=== PATIENT | male | born 1935 | race Caucasian/White ===

== ENCOUNTER → 2016-11-23 | Outpatient (CLI) | payer BC ==
[~2016-11-23] MED LIST: ASPI81TA85 PO; CALC600T57 PO; CLIN1CAP5 PO; FISH1000 PO; GABA300C3 PO; GLUC1CAP9; IBUP200C PO; MULTTAB4 PO; TAMS0.4C2 PO
--- NOTE | 2016-11-23 17:05 | REP ---
Chest x-ray: Two views. History: Fever and back pain. Comparison chest x-ray June 06, 2015. Findings: There is some chronic pleuroparenchymal opacity at the left heart border unchanged from the June 05, 2015 study. This is also seen on June 05, 2013 prior studies. The aorta is slightly tortuous and calcific. Heart size is normal. The lung harrell are otherwise clear. Pleural angles are sharp. The patient is status post lumbar spine fusion surgery. Pulmonary vasculature is not increased. Impression: No active disease. Chronic pleuroparenchymal opacity left base. Signed by Navarro Garcia MD 11/23/2016 05:34 P
== END | disposition home or self-care (01) ==
LOC: M RAD 14:03
PROVIDERS: ATTEND Physician Assistant
DX: R50.9 Fever, unspecified (principal); M54.9 Dorsalgia, unspecified; R91.8 Other nonspecific abnormal finding of lung field

== ENCOUNTER → 2017-01-15 | Outpatient (REF) | payer BC | LOC: M LAB REF 12:25 | PROVIDERS: ATTEND Internal Medicine | DX: R31.9 Hematuria, unspecified (principal) ==

== ENCOUNTER → 2017-05-27 | Outpatient (CLI) | payer BC ==
[~2017-05-27] VITALS: Ht 172.7 cm; Wt 79.4 kg
[~2017-05-27] MED LIST changes: +CLIN150C14 PO; -CLIN1CAP5 PO; +FLOM5CAP PO; +GABA-282 PO; -GABA300C3 PO; -IBUP200C PO; +IBUP200C10 PO; +LIDOCAINE 2% INJ 100 MG/5 ML SDV (FOR ANES.) As Ordered ONE; +NS 1,000 ML IV SCH; +OMEP40CA2 PO; +PROPOFOL 500 MG/50 ML VIAL As Ordered ONE; +ZYRT10CA PO
--- NOTE | 2017-05-27 14:01 | ROOR ---
Patient Name: Elieser Spangler Procedure Date: 05/27/2017 1:39 PM Date of : 1935 Age: 82 Room: [facility] Gender: Male Note Status: Finalized Procedure: Upper GI endoscopy + Balloon Dilatation + Biopsies Indications: Dysphagia, Follow-up of Jimenez's esophagus Providers: Sandip Hutchins MD Referring MD: MARY COY JR, MD Requesting Provider: Medicines: Monitored Anesthesia Care Complications: No immediate complications. Procedure: Pre-Anesthesia Assessment: - The heart rate, respiratory rate, oxygen saturations, blood pressure, adequacy of pulmonary ventilation, and response to care were monitored throughout the procedure. The Endoscope was introduced through the mouth, and advanced to the second part of duodenum. The upper GI endoscopy was accomplished without difficulty. The patient tolerated the procedure well. Findings: The Z-line was regular and was found 40 cm from the incisors. Multiple biopsies were obtained with cold forceps for evaluation to rule out Jimenez's Esophagus randomly at the gastroesophageal junction. A TTS dilator was passed through the scope. Dilation with an 18-19-20 mm balloon dilator was performed to 20 mm. The dilation site was examined and showed. A small hiatal hernia was present. No other significant abnormalities were identified in a careful examination of the stomach. The exam of the duodenum was otherwise normal. Impression: - Z-line regular, 40 cm from the incisors. Dilated. - Small hiatal hernia. - Multiple biopsies were obtained at the gastroesophageal junction. - The examination was otherwise normal. Recommendation: - Patient has a contact number available for emergencies. The signs and symptoms of potential delayed complications were discussed with the patient. Return to normal activities tomorrow. Written discharge instructions were provided to the patient. - High fiber diet. - Discharge patient to home. - Continue present medications. - Await pathology results. - Telephone GI clinic for pathology results in 1 week. - Return to referring physician. - The findings and recommendations were discussed with the patient's family. Sandip Hutchins MD Sandip Hutchins MD 05/27/2017 2:01:27 PM This report has been signed electronically. Number of Addenda: 0 Note Initiated On: 05/27/2017 1:39 PM Estimated Blood Loss: Estimated blood loss: none.
[2017-05-27 14:28] VITALS: BP 129/76
== END ==
LOC: M OPP 12:25
PROVIDERS: ATTEND Internal Medicine Gastroenterology
DX: R13.10 Dysphagia, unspecified (principal); K22.70 Barrett's esophagus without dysplasia; K44.9 Diaphragmatic hernia without obstruction or gangrene; Z79.82 Long term (current) use of aspirin; Z79.899 Other long term (current) drug therapy; Z88.8 Allergy status to other drugs, medicaments and biological substances; J30.9 Allergic rhinitis, unspecified; Z87.891 Personal history of nicotine dependence; Z87.19 Personal history of other diseases of the digestive system; M81.0 Age-related osteoporosis without current pathological fracture; Z85.828 Personal history of other malignant neoplasm of skin; Z86.69 Personal history of other diseases of the nervous system and sense organs; Z85.46 Personal history of malignant neoplasm of prostate

== ENCOUNTER → 2017-09-26 | Outpatient (CLI) | payer MEDICARE ==
[~2017-09-26] MED LIST changes: -LIDOCAINE 2% INJ 100 MG/5 ML SDV (FOR ANES.) As Ordered ONE; -NS 1,000 ML IV SCH; -PROPOFOL 500 MG/50 ML VIAL As Ordered ONE; +TAMSULOSIN
--- NOTE | 2017-10-13 00:17 | ECWPNPC ---
PATIENT NAME: MERA DACOSTA : 1935 GENDER: MALE VISIT DATE: 09/26/2017 DISCHARGE DATE: 09/26/17 1129 VISIT LOCKED DATE TIME: PHYSICIAN: MATTHEW KINCAID RESOURCE: MATTHEW KINCAID REASON FOR APPOINTMENT 1. BACK PAIN HISTORY OF PRESENT ILLNESS FALL RISK SCREENING: SCREENING :NO FALLS IN THE PAST YEAR 82 YEAR OLD FEMALE PATIENT WITH HISTORY OF CHRONIC LOW BACK PAIN. PATIENT DESCRIBES THE PAIN ACHING WITH A PAIN SCORE OF 5/10. PATIENT STATES THAT HE HAS HAD LOWER BACK PAIN FOR 12-16 YEARS AND STATES THAT HIS PAIN STARTED AFTER A BACK SURGERY. PATIENT STATES THAT SITTING DECREASES THE PAIN IN THE LOWER BACK. PATIENT REPORTS USING IBUPROFEN TO AID IN PAIN RELIEF. PATIENT REPORTS TRYING PHYSICAL THERAPY AND REPORTS NO RELIEF FROM IT. PATIENT DENIES UNEXPLAINABLE WEIGHT LOSS, FEVER, CHILLS, NEW CHANGES ON HIS URINARY OR BOWEL CONTROL. PAIN SCREENING: PATIENT HAS A COMPLAINT OF ACUTE OR CHRONIC PAIN :YES CURRENT MEDICATIONS TAKING TAMSULOSIN HCL 0.4 MG CAPSULE EXTENDED RELEASE 24 HOUR 2 CAPSULES 30 MINUTES AFTER THE SAME MEAL EACH DAY ORALLY ONCE A DAY TAKING ASPIR-81 81 MG TABLET DELAYED RELEASE 1 TABLET ORALLY ONCE A DAY TAKING MULTIVITAMINS CAPSULE DIRECTED ORALLY TAKING OMEPRAZOLE 40 MG CAPSULE DELAYED RELEASE 1 CAPSULE ORALLY ONCE A DAY TAKING CETIRIZINE HCL 10 MG TABLET 1 TABLET ORALLY ONCE A DAY TAKING VITAMIN D3 COMPLETE - TABLET ORALLY TAKING IBUPROFEN 200 MG TABLET 1 TABLET WITH FOOD OR MILK NEEDED ORALLY EVERY 6 HRS TAKING ONE DAILY COMPLETE FOR MEN - TABLET 1 TAB ORALLY DAILY TAKING CITRACAL CALCIUM+D 1 TAB ORALLY DAILY TAKING FISH OIL 1200 MG CAPSULE 1 CAPSULE ORALLY ONCE A DAY DISCONTINUED CALCIUM + D 600-200 MG-UNIT TABLET 1 TABLET ORALLY ONCE A DAY DISCONTINUED [id number] 50-325-40 MG CAPSULE 1 CAPSULE NEEDED FOR TENSION HEADACHE ORALLY EVERY 4 HRS DISCONTINUED MELOXICAM 15 MG TABLET 1 TABLET ORALLY ONCE A DAY DISCONTINUED LEVOCETIRIZINE DIHYDROCHLORIDE 5 MG TABLET 0.5 TABLET IN THE EVENING ORALLY ONCE A DAY DISCONTINUED TOVIAZ 8 MG TABLET EXTENDED RELEASE 24 HOUR 1 TABLET ORALLY ONCE A DAY DISCONTINUED RANITIDINE HCL 150 MG CAPSULE 1 CAPSULE ORALLY TWICE A DAY DISCONTINUED GLUCOSAMINE CHONDR 500 COMPLEX CAPSULE DIRECTED ORALLY MEDICATION LIST REVIEWED AND RECONCILED WITH THE PATIENT PAST MEDICAL HISTORY BPH ESOPHAGEAL REFLUX LOW BACK PAIN ALLERGIES CEPHALEXIN: "RED LIKE A BEET ALL OVER": ALLERGY SURGICAL HISTORY LEFT CAROTID ENDARTERECTOMY 2002 LUMBAR FUSION L3-4 09/2016 RIGHT PARTIAL KNEE 2004 LEFT PARTIAL KNEE 2004 PROSTATE SURGERY--SEEDS IMPLANTED 2003 CATARAC SURGERY--BILAT 05/2014,06/2014 INGUINAL HERNIA REPAIR 1992 CIRCUMCISION 1956 FAMILY HISTORY FATHER: 75 YRS, DIAGNOSED WITH CANCER MOTHER: 69 YRS 2 SON(S) - HEALTHY. FATHER-COLON CA. SOCIAL HISTORY GENERAL: TOBACCO USE ARE YOU A:FORMER SMOKER HOW LONG HAS IT BEEN SINCE YOU LAST SMOKED? QUIT 1967 ALCOHOL SCREENING POINTS2 INTERPRETATIONNEGATIVE RECREATIONAL DRUG USE DRUG USE?NO CAFFEINE CAFFEINE USE?NO 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 EXERCISE: NO REGULAR EXERCISE. MARITAL STATUS: . OTHERS AT HOME: SPOUSE, CHILD. TAOIST [id number] ROMAN CATHOLIC LANGUAGE LANGUAGES SPOKEN:DIVEHI LEARNING BARRIERS / SPECIAL NEEDS HEARING IMPAIRED?YES :HEARING AIDES BILATERAL VISION IMPAIRED?YES :CORRECTIVE LENSES COGNITIVELY IMPAIRED?NO READINESS TO LEARN?YES LEARNING PREFERENCES?YES :BOOKLETS, HANDOUTS LEARNING CAPABILITIES PRESENT?YES EMOTIONAL BARRIERS?NO SPECIAL DEVICES?NO CREDIT COLLECTIONS REP NEEDED?NO PAIN CLINIC PFS, CLERGY, PUBLIC HEALTH REFERRALS PFS REFERRAL NEEDED?NO CLERGY REFERRAL NEEDED?NO PUBLIC HEALTH REFERRAL NEEDED?NO WAS THE PROVIDER NOTIFIED OF ANY PERTINENT INFO?NO HAS THE PATIENT BEEN EDUCATED REGARDING HIS/HER PLAN OF CARE?YES HAS THE PATIENT BEEN EDUCATED REGARDING PAIN, THE RISK FOR PAIN, THE IMPORTANCE OF EFFECTIVE PAIN MANAGEMENT, AND THE PAIN ASSESSMENT PROCESS?YES ADVANCE DIRECTIVES HEALTH CARE PROXY?YES NAME OF HCP --[facility]UCHO CONTACT # FOR HCP [phone] DO YOU HAVE A COPY WITH YOU?NO ON FILE WITH THE HOSPITAL DO YOU HAVE A DNR?NO WOULD YOU LIKE MORE INFORMATION?NO LIVING WILL?NO WOULD YOU LIKE MORE INFORMATION?NO POWER OF RESTORATIVE COORDINATOR?YES NAME OF POA? CHUCHO DACOSTA PHONE # OF POA? [phone] DO YOU HAVE A COPY WITH YOU?NO HAVE YOU HAD A COPY OF ANY ADVANCED DIRECTIVE (LISTED ABOVE) ON A PREVIOUS MEDICAL RECORDS AT [facility] [place]?YES DOMESTIC VIOLENCE DO YOU FEEL SAFE IN YOUR ENVIRONMENT?YES HOSPITALIZATION/MAJOR DIAGNOSTIC PROCEDURE FOR SURGERIES REVIEW OF SYSTEMS REVIEWED BY: PROVIDER: MATTHEW KINCAID MD . CONSTITUTIONAL: ANY CHANGE IN YOUR MEDICAL CONDITION? NO . CHILLS NO . FEVER NO . INFECTION: DO YOU HAVE NEW INFECTIONS? NO . DO YOU HAVE HISTORY OF MRSA? NO . MUSCULOSKELETAL: ANY NEW PATTERNS OF PAIN OR NUMBNESS? NO . SYTEMIC LUPUS NO . GASTROENTEROLOGY: ANY NEW CHANGE IN BOWEL CONTROL? NO . BARRETTS ESOPHAGUS NO . CIRRHOSIS NO . HEPATITIS NO . LIVER FAILURE NO . ACID REFLUX YES-ON MEDS NARROWING OF EOSPHAGUS . UNEXPLAINED WEIGHT LOSS NO . GENITOURINARY: ANY NEW CHANGE IN BLADDER CONTROL? NO . IS THERE A CHANCE YOU COULD BE ? NO . HEMATOLOGY/LYMPH: DO YOU TAKE ANY BLOOD THINNERS? (FOR EXAMPLE- COUMADIN, PLAVIX, AGGRENOX, PLATEL, PRADAXA, OR XARELTO) NO . WHEN WAS YOUR LAST DOSE? DATE: TIME: . LOW PLATELET COUNT NO . SICKLE CELL DISEASE NO . VON WILLIEBRANDS NO . FACTOR V LEIDEN NO . THALLASEMIA NO . ANEMIA NO . EASY BRUISING NO . NEUROLOGY: HAVE YOU FALLEN IN THE PAST 6 MONTHS? NO . ANY NEW EXTREMITY NUMBNESS OR WEAKNESS? NO . HEAD INJURY NO . DEMENTIA NO . CEREBRAL PALSY NO . MULTIPLE SCLEROSIS NO . DIZZINESS NO . HEADACHE NO . STROKES NO . VERTIGO NO . CARDIOLOGY: DO YOU HAVE A PACEMAKER OR DEFIBRILLATOR? NO . ANGINA NO . HEART ATTACK NO . HEART SURGERY NO . CONGESTIVE HEART FAILURE/FLUID OVERLOAD NO . CHEST PAIN NO . HIGH BLOOD PRESSURE NO . IRREGULAR HEART BEAT NO . RESPIRATORY: HAVE YOU BEEN SICK IN THE PAST WEEK? NO . FEVER NO . FLU LIKE SYMPTOMS? NO . CPAP NO . BYPAP NO . ASTHMA NO . EMPHYSEMA NO . CHRONIC LUNG DISEASES NO . SHORTNESS OF BREATH ON EXERTION NO . COUGH NO . SNORING NO . INTEGUMENTARY: DO YOU HAVE ANY RASHES OR OPEN SORES? NO . ALLERGIC/IMMUNO: ARE YOU ALLERGIC TO SHELLFISH OR IV DYE? NO . ANY NEW ALLERGIES? NO . PSYCHIATRIC: DO YOU HAVE THOUGHTS OF HURTING YOURSELF OR SOMEONE ELSE? NO . ARE YOU ABUSED, NEGLECTED, OR IN AN UNSAFE ENVIRONMENT? NO . ENDOCRINOLOGY: ARE YOU DIABETIC? NO . THYROID DISORDER NO . OTHER: DO YOU NEED ANY PRESCRIPTIONS? NO . IF YES, PLEASE LIST: ____ . ANY NEW PROBLEMS WITH YOUR MEDICATIONS? NO . WHEN DID YOU LAST EAT? ____ . WHEN DID YOU LAST DRINK? ____ . WHAT DID YOU LAST DRINK? ____ . NAME OF PERSON DRIVING YOU HOME? ____ . DO YOU HAVE ANY OTHER QUESTIONS OR CONCERNS NO . VITAL SIGNS WT 181.0 LBS, HT 68", BMI 27.52 INDEX, BP 179/73 MM HG, HR 103 /MIN, RR 18 /MIN, TEMP 96.6 F, OXYGEN SAT % 99%, SAFE IN ENV? (Y/N) Y, NA INITIALS TL 1015, REVIEWED BY: MAME. EXAMINATION : PATIENT IS ALERT O X 3 AND COOPERATIVE. PATIENT WALKS IN FLEXED POSITION. WIDE ANGLED GAIT. TENDERNESS IN THE LOWER BACK AND PARASPINAL MUSCLE GROUP. PENDING LUMBAR MRI. LUNGS CLEAR, TO AUSCULTATION. HEART NO MURMURS OR GALLOPS; FACIAL CRANIAL NERVES ARE GROSSLY NORMAL. GOOD SYMMETRY OF FACIAL MUSCLE MOVEMENT. NORMAL VISUAL SANTANA. ABDOMINAL SOFT AND DEPRESSIBLE. ASSESSMENTS LOW BACK PAIN - M54.5 (PRIMARY) OTHER CHRONIC PAIN - G89.29 POSTLAMINECTOMY SYNDROME, NOT ELSEWHERE CLASSIFIED - M96.1 TREATMENT LOW BACK PAIN NOTES: WE DISCUSSED SEVERAL ISSUES WITH MR. DACOSTA' PAIN MANAGEMENT CASE. AT THIS TIME THE PATIENT WILL CONTINUE WITH THE SAME MEDICATION REGIME BEFORE. I WOULD LIKE THE PATIENT TO RECEIVE A LUMBAR MRI SO I MAY BETTER ASSESS THE PATIENT'S PAIN. PATIENT WILL ALSO DO A BUN AND CREATINE TEST SO THAT THE MRI CAN HAVE CONTRAST. PATIENT WILL RECEIVE VALIUM FOR THE MRI DUE TO BEING CLAUSTROPHOBIC. AT THIS TIME NO INTERVENTIONS WILL BE HELD UNTIL THE MRI IS REVIEWED. INSTRUCTIONS WERE GIVEN, QUESTIONS WERE ANSWERED, PATIENT REPORTS UNDERSTANDING AND AGREES WITH THE PLAN. I, ROMAN MARTIN, DOCUMENTED THE ABOVE INFORMATION ACTING A SCRIBE FOR DR. KINCAID. I HAVE REVIEWED THE ABOVE DOCUMENT, WRITTEN BY ROMAN MATHEWS AND I VERIFY THAT IT IS ACCURATE. DEAR DR. COY:THANK YOU FOR YOUR KIND REFERRAL OF MR. DACOSTA. IF YOU WANT TO DISCUSS HIS CASE WITH ME PLEASE CALL ME AT THE PAIN CENTER AT [phone]. SINCERELY,MATTHEW KINCAID, [facility]. OTHERS START VALIUM TABLET, 5 MG, 1 TABLET NEEDED, ORALLY, 2 HRS BEFORE MRI MAY REPEAT 30 MINUTES [place] MRI MDD2, 1 DAYS, 2, REFILLS 0 PROCEDURE CODES FA211 ESTABILISHED PATIENT [facility] FACILITY CHARGE J6487 DOC MEDS VERIFIED W/PT OR RE Q0247 PAIN ASSESS POS TOOL F/U PLAN DOC DISPOSITION & COMMUNICATION FOLLOW UP 3 WEEKS ELECTRONICALLY SIGNED BY MATTHEW KINCAID MD ON 10/12/2017 AT 04:39 PM EST DISCLAIMER : THIS IS A VISIT SUMMARY EXTRACTED FROM THE [employer] CHART. IT IS NOT A COPY OF THE [employer] PROGRESS NOTE. DARRNI
== END ==
LOC: M PAIN 09:45
PROVIDERS: ATTEND Anesthesiology
DX: M54.5 Low back pain (principal); G89.29 Other chronic pain; M96.1 Postlaminectomy syndrome, not elsewhere classified; K21.9 Gastro-esophageal reflux disease without esophagitis; N40.0 Benign prostatic hyperplasia without lower urinary tract symptoms; Z79.82 Long term (current) use of aspirin; Z79.899 Other long term (current) drug therapy; Z87.891 Personal history of nicotine dependence; Z88.1 Allergy status to other antibiotic agents

== ENCOUNTER 2017-10-13 10:30 | Inpatient (IN) | payer MEDICARE ==
[~2017-10-13] VITALS: Ht 172.7 cm; Wt 78.2 kg
[~2017-10-13 10:30] MED LIST changes: +OMEPRAZOLE 20 MG CAP PO SCH; -TAMSULOSIN
[2017-10-13] MEDS ORDERED: TAMSULOSIN (10:41)
[2017-10-13] MEDS ORDERED: NS 500 ML IV ONE (11:00)
--- NOTE | 2017-10-13 11:36 | REP ---
Clinical: Lower chest and abdominal pain . Comparison: 11/23/2016 . Technique: PA and lateral. Findings: The mediastinum and cardiac silhouette are normal. The lung harrell are clear and without acute consolidation, effusion, or pneumothorax. The skeletal structures are intact and normal. No free air below diaphragm to suspect pneumoperitoneum. Impression: 1. No acute cardiopulmonary process. Signed by Marcos Cruz MD 10/13/2017 11:27 A
[2017-10-13 11:52] LABS: BASO % 0.3 % (0.0-1.0); EOS # 0.1 10^3/uL (0.0-0.50); EOS % 0.4 % (0.0-3.0); IMMATURE GRANULOCYTE % 0.4 % (0-0); LYMPH % 8.3 % (24.0-44.0); MEAN CORPUSCULAR HEMOGLOBIN 31.9 pg (27.0-33.0); MEAN CORPUSCULAR HGB CONC 33.3 g/dl (32.0-36.5); MEAN CORPUSCULAR VOLUME 96.1 fl (80.0-96.0); MONO # 0.6 10^3/uL (0.0-0.8); NEUTROPHILS # 10.2 10^3/uL (1.8-7.7); NEUTROPHILS % 85.6 % (36.0-66.0); PLATELET COUNT, AUTOMATED 295 10^3/uL (150-450); RED CELL DISTRIBUTION WIDTH 12.7 % (11.5-14.5); WHITE BLOOD COUNT 11.9 10^3/uL (4.0-10.0)
[2017-10-13 12:08] LABS: INR 1.01
[2017-10-13 12:20] LABS: ALBUMIN 3.6 GM/DL (3.2-5.2); ALBUMIN/GLOBULIN RATIO 0.97 (1.00-1.93); ALKALINE PHOSPHATASE 95 U/L (45-117); ALT/SGPT 25 U/L (12-78); AMYLASE 51 U/L (25-115); ANION GAP 8 MEQ/L (8-16); AST/SGOT 12 U/L (7-37); BILIRUBIN,DIRECT 0.2 MG/DL (0.0-0.2); BILIRUBIN,TOTAL 0.8 MG/DL (0.2-1.0); BLOOD UREA NITROGEN 35 MG/DL (7-18); CALCIUM LEVEL 9.1 MG/DL (8.8-10.2); CARBON DIOXIDE LEVEL 27 MEQ/L (21-32); CHLORIDE LEVEL 107 MEQ/L (98-107); GLOMERULAR FILTRATION RATE 51.7 (>35); GLUCOSE, FASTING 126 MG/DL (83-110); SODIUM LEVEL 142 MEQ/L (136-145); TOTAL PROTEIN 7.3 GM/DL (6.4-8.2)
[2017-10-13] MEDS ORDERED: ISOVUE-370 76% 100ML VIAL (Q9967) As Ordered ONE (12:51)
[2017-10-13] MEDS ORDERED: NS 1,000 ML IV ONE (14:00)
[2017-10-13] MEDS: NS 1,000 ML IV SCH (15:00)
[2017-10-13] MEDS ORDERED: ONDANSETRON 4MG/2ML VIAL (J2405) IV PRN (15:00)
--- NOTE | 2017-10-13 16:01 | HPEPDOC ---
General Date of Admission 10/13/17 Primary Care Physician: Jr Mora Collins Other Providers GI: Dr. Hutchins Chief Complaint 82-year-old male presents to the ED for bright red blood per rectum with passage of clots since Friday. PMH notable for prostate cancer s/p radiation 2003, TIA, s/p left carotid endarterectomy, GERD, Jimenez's esophagus. States he has been wearing pads that he has soaked through even at rest. Associated with lightheadedness when he is walking. States this has happened once before, but was less severe, when diagnosed with internal hemorrhoids. Denies sick contacts, travel, medication changes. Denies all other ROS, including chest pain , shortness of breath, dizziness, abdominal pain, hematuria, n/v, weight loss. Per patient, previous colonoscopy around 4 years ago was negative, an endoscopy in March this year by Dr. Hutchins was performed for dilation for dysphagia. In the ED, vitals were WNL, lactic acid elevated at 2.9 and WBC 11.9. H&H on admission stable at 14.6 & 43.9 respectively. Home Medications Scheduled (Calcium + D3 600-200 mg-Unit) 1 Tab Tab, 1 TAB PO BID, (Reported) (Multi-Vitamins) 1 Tab Tab, 1 TAB PO DAILY, (Reported) Aspirin (Aspir-81) 81 Mg Tab, 81 MG PO DAILY, (Reported) Cetirizine HCl (Zyrtec Allergy) 10 Mg Cap, 10 MG PO DAILY, (Reported) Fish Oil (Fish Oil) 1,000 Mg Cap, 1,000 MG PO BID, (Reported) Omeprazole (Omeprazole) 40 Mg Cap, 40 MG PO DAILY, (Reported) Tamsulosin Hydrochloride (Flomax) 0.4 Mg Cap, 0.8 MG PO QPM, (Reported) Scheduled PRN Ibuprofen (Ibuprofen) 200 Mg Cap, 400 MG PO Q8H PRN for PAIN, (Reported) Allergies Coded Allergies: Cephalosporins (Unverified Allergy, Intermediate, HIVES, 05/15/17) Past Medical History Medical History Prostate cancer, s/p radiation, 2003 Borderline diabetes TIA, s/p left carotid endarterectomy BPH GERD Jimenez's esophagus Surgical History Bilateral knee replacement L3/4 fusion Left carotid endarterectomy, 2002 hiatal hernia repair Family History father: colon ca mother: CAD son: diabetes brother: HTN, epilepsy Social History Tobacco: Quit 1975 (1 PPD for 12 years) Alcohol: Denies Illicit substances: Denies Review of Symptoms Constitutional: Denies: Chills, Fever, Malaise, Weakness, Weight Loss Eyes: Denies: Pain, Vision change ENT: Denies: Head Aches, Ear Pain, Dysphagia, Epistaxis Skin: Denies: Rash, Lesions Pulmonary: Denies: Dyspnea, Cough Cardiovascular: Reports: Lt Headedness (when walking), Denies: Chest Pain, Palpitations, Edema Gastrointestinal: Reports: Constipation (last BM friday), Hematochezia, Denies: Nausea, Vomiting, Abdominal Pain, Diarrhea Genitourinary: Denies: Hematuria Endocrine: Denies: Heat Intolerance, Cold Intolerance Musculoskeletal: Denies: Back Pain Neurological: Denies: Weakness, Numbness Physical Examination General Exam: Positive: Alert, Cooperative, No Acute Distress Eye Exam: Positive: PERRLA, Conjunctiva & lids normal, EOMI, Sclera icteric ENT Exam: Positive: Atraumatic, Mucous membr. moist/pink, Tongue Midline, Nares Patent, Pinna Normal Neck Exam: Positive: Supple, Negative: Lymphadenopathy Chest Exam: Positive: Clear to auscultation, Normal air movement, Negative: Rales, Rhonchi, Wheezing Heart Exam: Positive: Rate Normal, Regular Rhythm, Normal S1, Normal S2, Negative: Murmurs Abdomen Exam: Positive: BS Hypoactive, Soft, Negative: Tenderness Extremity Exam: Positive: Normal pulses, Negative: Clubbing, Cyanosis, Edema, Tenderness Skin Exam: Positive: Nl turgor and temperature, Negative: Rash Neuro Exam: Positive: Normal Speech, Strength at 5/5 X4 ext, Normal Tone, Sensation Intact Psych Exam: Positive: Mental status NL, Mood NL, Memory Intact, Oriented x 3 Vital Signs Vital Signs Date Time Temp Pulse Resp B/P (MAP) Pulse Ox O2 Delivery O2 Flow Rate FiO2 10/13/17 14:24 68 18 141/75 (97) 97 Room Air 10/13/17 10:31 98.6 Laboratory Data Labs 24H Laboratory Tests 2 10/13/17 11:37: Prothrombin Time 13.4, Prothromb Time International Ratio 1.01, Activated Partial Thromboplast Time 26.7L, Anion Gap 8, Glomerular Filtration Rate 51.7, Calcium Level 9.1, Aspartate Amino Transf (AST/SGOT) 12, Alanine Aminotransferase (ALT/SGPT) 25, Alkaline Phosphatase 95, Total Bilirubin 0.8, Direct Bilirubin 0.2, Total Creatine Kinase 41, Creatine Kinase MB 1.3, Creatine Kinase MB Relative Index 3.17, Troponin I < 0.02, Total Protein 7.3, Albumin 3.6, Albumin/Globulin Ratio 0.97L, Amylase Level 51, Lipase 84 10/13/17 11:38: Immature Granulocyte % (Auto) 0.4H, White Blood Count 11.9H, Red Blood Count 4.57, Hemoglobin 14.6, Hematocrit 43.9, Mean Corpuscular Volume 96.1H, Mean Corpuscular Hemoglobin 31.9, Mean Corpuscular Hemoglobin Concent 33.3, Red Cell Distribution Width 12.7, Platelet Count 295, Neutrophils (%) (Auto) 85.6H, Lymphocytes (%) (Auto) 8.3L, Monocytes (%) (Auto) 5.0, Eosinophils (%) (Auto) 0.4, Basophils (%) (Auto) 0.3, Neutrophils # (Auto) 10.2H, Lymphocytes # (Auto) 1.0L, Monocytes # (Auto) 0.6, Eosinophils # (Auto) 0.1, Basophils # (Auto) 0.0, Immature Granulocyte # (Auto) 0.1H, Nucleated Red Blood Cells % (auto) 0.0, Lactic Acid Level 2.9*H CBC/BMP Laboratory Tests 10/13/17 11:37 10/13/17 11:38 Red Blood Count 4.57, Mean Corpuscular Volume 96.1 H, Mean Corpuscular Hemoglobin 31.9, Mean Corpuscular Hemoglobin Concent 33.3, Red Cell Distribution Width 12.7, Neutrophils (%) (Auto) 85.6 H, Lymphocytes (%) (Auto) 8.3 L, Monocytes (%) (Auto) 5.0, Eosinophils (%) (Auto) 0.4, Basophils (%) (Auto ) 0.3, Neutrophils # (Auto) 10.2 H, Lymphocytes # (Auto) 1.0 L, Monocytes # ( Auto) 0.6, Eosinophils # (Auto) 0.1, Basophils # (Auto) 0.0 Microbiology Microbiology 10/13/17 Blood Culture, Received Pending 11/27/17 Blood Culture, Received Pending Assessment/Plan Hematochezia presented with BRBPR with clots since Friday, soaking through pads and bleeding even at rest. Per pt, negative colonoscopies previously orthostatics q8h cbc q6h. H&H 14.6/44 on admission. Monitor. No transfusion needed yet FOBT to confirm bleed-pending Dr. Hutchins consulted, plans to scope on Monday 10/15. Appreciate GI's input currently clear liquids diet. Plan for NPO after midnight tomorrow night for scope Friday Lactic acidosis 2.[address] abdomen read pending. CXR clear on IV hydration. Monitor Leukocytosis ~12 on admission. Afebrile. May be reactionary CT abdomen read pending. CXR clear GI panel pending Elevated bp no hx of HTN SBP > 170 on admission, BP med as ordered VERONICA Likely 2/2 dehydration IV fluids 100cc/hr Back Pain pt scheduled to have MRI done this Monday 10/15. Will f/u with pt and attempt to get imaging performed here pain management consulted GERD Hold home PO Protonix IV Protonix bid inpatient History of TIA s/p left carotid endarterectomy Hold ASA 81mg due to GI bleed BPH Continue home Flomax Hx prostate cancer s/p radiation, 2004 DVT ppx TEDs/SCDs. Avoid anticoagulation due to active bleed DISPOSITION: Will admit to hospital service. Plan / VTE VTE Prophylaxis Ordered?: Yes (RALPH/SCD) GME ATTESTATION GME ATTESTATION My faculty preceptor for this patient encounter was physically present during the encounter and was fully available. All aspects of the patient interview, examination, medical decision making process, and medical care plan development were reviewed and approved by the faculty preceptor. The faculty preceptor is aware and concurs with the plan as stated in the body of this note and will attest to such by his/her cosignature. ATTENDING NOTE I have both independently examined this patient as well as reviewed the H&P. I have discussed in detail with the resident the findings and plan of treatment as documented in the residents note. I will continue to follow the patient and offer further guidance to the patients care as necessary during this hospital stay. PEDRO Celestin MD, DO Oct 13, 2017 16:01 EZRA BANEGAS MD Oct 20, 2017 09:29
[2017-10-13] MEDS: PANTOPRAZOLE 40MG INJ (PROTONIX) (C9113) IV SCH (16:03)
[2017-10-13 17:38] VITALS: BP 174/79
[2017-10-13 17:56] VITALS: BP 148/82
--- NOTE | 2017-10-13 18:31 | ECGEPIP ---
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
[2017-10-13 20:00] VITALS: BP 142/90
[2017-10-13] MEDS: TAMSULOSIN 0.4 MG CAP PO SCH (20:23)
[2017-10-13] MEDS ORDERED: PANTOPRAZOLE 40MG TAB (PROTONIX) PO SCH (21:00)
[2017-10-13] MEDS ORDERED: PANTOPRAZOLE 40MG INJ (PROTONIX) (C9113) IV SCH (21:00)
[2017-10-14] VITALS: BP_SYST 140; BP_SYST 146; BP_SYST 160; BP_DIAS 80; BP_DIAS 84
[2017-10-14] MEDS: NS 1,000 ML IV SCH ×2 (02:39→11:44)
[2017-10-14] MEDS: PANTOPRAZOLE 40MG INJ (PROTONIX) (C9113) IV SCH ×2 (03:37→15:53)
[2017-10-14 04:00] VITALS: BP 148/70
[2017-10-14 08:00] VITALS: BP 140/60
[2017-10-14 08:10] LABS: MEAN CORPUSCULAR HEMOGLOBIN 31.8 pg (27.0-33.0); MEAN CORPUSCULAR HGB CONC 33.3 g/dl (32.0-36.5); MEAN CORPUSCULAR VOLUME 95.5 fl (80.0-96.0); PLATELET COUNT, AUTOMATED 233 10^3/uL (150-450); RED CELL DISTRIBUTION WIDTH 12.6 % (11.5-14.5); WHITE BLOOD COUNT 8.4 10^3/uL (4.0-10.0)
[2017-10-14 08:35] LABS: ANION GAP 9 MEQ/L (8-16); BLOOD UREA NITROGEN 23 MG/DL (7-18); CALCIUM LEVEL 8.3 MG/DL (8.8-10.2); CARBON DIOXIDE LEVEL 22 MEQ/L (21-32); CHLORIDE LEVEL 113 MEQ/L (98-107); CREATININE FOR GFR 0.95 MG/DL (0.70-1.30); GLOMERULAR FILTRATION RATE > 60.0 (>35); GLUCOSE, FASTING 91 MG/DL (83-110); POTASSIUM SERUM 3.9 MEQ/L (3.5-5.1); SODIUM LEVEL 144 MEQ/L (136-145)
[2017-10-14 08:55] LABS: MAGNESIUM LEVEL 1.9 MG/DL (1.8-2.4); PHOSPHORUS LEVEL 2.5 MG/DL (2.5-4.9)
[2017-10-14 12:00] VITALS: BP_SYST 153; BP_SYST 155; BP_SYST 159; BP_SYST 169; BP_DIAS 68; BP_DIAS 73; BP_DIAS 75; BP_DIAS 76
[2017-10-14] MEDS ORDERED: GOLYTELY SOLN 4000 ML BTL PO ONE (13:00)
--- NOTE | 2017-10-14 15:37 | REP ---
Clinical: Abdominal pain and rectal bleeding. Technique: Axial contrast enhanced images from the lung bases to the pubic symphysis using 100 ml Isovue 370 intravenous contrast material with coronal and sagittal re-formations. Findings: Lung bases demonstrate minimal dependent and fibroatelectatic changes. Visualized heart and pericardium normal. Liver, spleen, pancreas, gallbladder, bilateral adrenal glands and left kidney normal. Right kidney includes 4 cm simple appearing cyst. The enteric system is without obstruction or acute inflammatory process and a normal terminal ileum and appendix are identified in the right lower quadrant. Diffuse colonic and patellae sigmoid diverticulosis noted without acute diverticulitis. Mild fecal impaction at the rectum is distended to 5.7 cm diameter. Pelvis demonstrates normal bladder and evidence for prior prostate seeding. No pelvic fluid or ascites. No free air. No adenopathy. No solitary mass lesion. Abdominal aorta with atherosclerotic changes but no evidence for aneurysm or dissection. Musculoskeletal structures demonstrate degenerative changes along with prior posterior lumbar fusion. Impression: 1. Rectal bleeding may be related to diffuse diverticulosis, but no evidence for acute diverticulitis or acute enteric process. Fecal impaction at the rectum distended to 5.7 cm should be correlated clinically. 2. A 4 cm simple right renal cyst. 3. No further acute abdominopelvic pathology appreciated. Signed by Marcos Cruz MD 10/14/2017 03:28 P
[2017-10-14 16:08] VITALS: BP_SYST 168; BP_SYST 180; BP_SYST 188; BP_DIAS 78; BP_DIAS 88; BP_DIAS 90
[2017-10-14] MEDS: hydrALAZINE INJ 20 MG/ML VIAL IV SCH (17:31)
[2017-10-14] MEDS: TAMSULOSIN 0.4 MG CAP PO SCH (20:07)
[2017-10-14 20:09] VITALS: BP 184/87
[2017-10-15] VITALS (12 sets, daily range): BP systolic 118–182; BP diastolic 64–88
[2017-10-15] MEDS: hydrALAZINE INJ 20 MG/ML VIAL IV SCH ×3 (01:08→17:00)
[2017-10-15] MEDS ORDERED: SLF 3 ML SYR IV PRN (02:45)
[2017-10-15] MEDS: PANTOPRAZOLE 40MG INJ (PROTONIX) (C9113) IV SCH ×2 (04:19→17:09)
[2017-10-15] MEDS: SLF 3 ML SYR IV SCH ×3 (04:20→22:00)
[2017-10-15 06:55] LABS: ANION GAP 8 MEQ/L (8-16); BLOOD UREA NITROGEN 13 MG/DL (7-18); CALCIUM LEVEL 8.5 MG/DL (8.8-10.2); CARBON DIOXIDE LEVEL 25 MEQ/L (21-32); CHLORIDE LEVEL 110 MEQ/L (98-107); CREATININE FOR GFR 0.91 MG/DL (0.70-1.30); GLOMERULAR FILTRATION RATE > 60.0 (>35); GLUCOSE, FASTING 97 MG/DL (83-110); POTASSIUM SERUM 3.6 MEQ/L (3.5-5.1); SODIUM LEVEL 143 MEQ/L (136-145)
[2017-10-15 07:10] LABS: MEAN CORPUSCULAR HEMOGLOBIN 32.2 pg (27.0-33.0); MEAN CORPUSCULAR VOLUME 94.7 fl (80.0-96.0); PLATELET COUNT, AUTOMATED 253 10^3/uL (150-450); RED CELL DISTRIBUTION WIDTH 12.5 % (11.5-14.5); WHITE BLOOD COUNT 7.5 10^3/uL (4.0-10.0)
--- NOTE | 2017-10-15 08:19 | IPNPDOC ---
Subjective Date Seen The patient was seen on 10/14/17. Subjective Chief Complaint/HPI The patient is a 82-year-old male admitted with a reason for visit of Gi Bleed. Overall feels better. States he is no longer bleeding at rest and soaking through pads. Had a BM this morning, no blood in toilet bowl, formed stool was bloody and red. Colonoscopy scheduled for tomorrow. Constitutional: Denies: Chills, Fever Eyes: Denies: Pain ENT: Denies: Head Aches Pulmonary: Denies: Dyspnea, Cough Cardiovascular: Denies: Chest Pain, Palpitations, Edema, Lt Headedness Gastrointestinal: Reports: Hematochezia (bloody/red stool, but no blood at rest or in toilet bowl), Denies: Nausea, Vomiting, Melena Genitourinary: Denies: Hematuria Neurological: Denies: Weakness, Numbness Objective Physical Examination General Exam: Positive: Alert, Cooperative, No Acute Distress Eye Exam: Positive: PERRLA, Conjunctiva & lids normal, EOMI, Sclera icteric ENT Exam: Positive: Atraumatic, Mucous membr. moist/pink, Tongue Midline, Nares Patent, Pinna Normal Neck Exam: Positive: Supple, Negative: Lymphadenopathy Chest Exam: Positive: Clear to auscultation, Normal air movement, Negative: Rales, Rhonchi, Wheezing Heart Exam: Positive: Rate Normal, Regular Rhythm, Normal S1, Normal S2, Negative: Murmurs Abdomen Exam: Positive: BS Hypoactive, Soft, Negative: Tenderness Extremity Exam: Positive: Normal pulses, Negative: Clubbing, Cyanosis, Edema, Tenderness Skin Exam: Positive: Nl turgor and temperature, Negative: Rash Neuro Exam: Positive: Normal Speech, Strength at 5/5 X4 ext, Normal Tone, Sensation Intact Psych Exam: Positive: Mental status NL, Mood NL, Memory Intact, Oriented x 3 Assessment /Plan Assessment Hematochezia presented with BRBPR with clots since Friday, soaking through pads and bleeding even at rest. Per pt, negative colonoscopies previously pt states bleeding is improving since admission, not soaking through pads, only red formed stool FOBT positive orthostatics [id number] thus far cbc q6h. H&H stable since admission. No transfusion yet Dr. Hutchins consulted, plans to scope tomorrow 10/15. Appreciate GI's input currently clear liquids diet. Plan for NPO after midnight tomorrow night for scope Friday Lactic acidosis 2.9 on admission. Resolved with IV hydration Leukocytosis ~12 on admission, possibly reactionary. Normalized today. Pt afebrile CT abdomen read pending. CXR clear GI panel pending Elevated bp no hx of HTN SBP > 170 on admission, normalized with Iopamidol monitor VERONICA Likely 2/2 dehydration. Normalized today continue IV fluids 100cc/hr Back Pain pt scheduled to have MRI done this Monday 10/15. Will f/u with pt and attempt to get imaging performed here pain management consulted GERD Hold home PO Protonix IV Protonix bid inpatient History of TIA s/p left carotid endarterectomy Hold ASA 81mg due to GI bleed BPH Continue home Flomax Hx prostate cancer s/p radiation, 2003 DVT ppx TEDs/SCDs. Avoid anticoagulation due to active bleed Plan/VTE VTE Prophylaxis Ordered?: Yes (RALPH/SCD) VS, I&O, 24H, [facility] Vital Signs/I&O Vital Signs Date Time Temp Pulse Resp B/P (MAP) Pulse Ox O2 Delivery O2 Flow Rate FiO2 10/14/17 12:00 54 169/76 (107) 59 155/68 (97) 63 153/73 (99) 10/14/17 12:00 97.2 18 98 Room Air I&O- Last 24 Hours up to 6 AM 10/15/17 06:00 Intake Total 840 ml Output Total 600 ml Balance 240 ml Laboratory Data 24H LABS Laboratory Tests 2 10/13/17 16:03: Lactic Acid Followup at 4 Hours 1.2 10/13/17 18:49: Lactic Acid Level 2.5*H 10/13/17 21:08: Lactic Acid Level 1.2 10/14/17 00:25: Lactic Acid Followup at 4 Hours 1.1 10/14/17 07:32: Nucleated Red Blood Cells % (auto) 0.0, Anion Gap 9, Glomerular Filtration Rate > 60.0, Blood Urea Nitrogen 23H, Creatinine 0.95, Sodium Level 144, Potassium Level 3.9, Chloride Level 113H, Carbon Dioxide Level 22, Calcium Level 8.3L, Phosphorus Level 2.5, Magnesium Level 1.9 CBC/BMP Laboratory Tests 10/13/17 18:49 10/14/17 00:25 10/14/17 07:32 Red Blood Count 3.96 L, Mean Corpuscular Volume 95.5, Mean Corpuscular Hemoglobin 31.8, Mean Corpuscular Hemoglobin Concent 33.3, Red Cell Distribution Width 12.6, Calcium Level 8.3 L 10/14/17 12:09 Microbiology Microbiology 10/13/17 Blood Culture - Preliminary, Resulted No growth after 24 hours . All specim... 10/13/17 Blood Culture - Preliminary, Resulted No growth after 24 hours . All specim... 10/14/17 Gastrointestinal Tract Panel (PCR) - Final, Complete 10/14/17 Stool Occult Blood (BIBIANA) - Final, Complete GME ATTESTATION GME ATTESTATION My faculty preceptor for this patient encounter was physically present during the encounter and was fully available. All aspects of the patient interview, examination, medical decision making process, and medical care plan development were reviewed and approved by the faculty preceptor. The faculty preceptor is aware and concurs with the plan as stated in the body of this note and will attest to such by his/her cosignature. PEDRO PATHAK DO Oct 14, 2017 14:40
[2017-10-15] MEDS ORDERED: NS 1,000 ML IV SCH (13:30)
--- NOTE | 2017-10-15 14:45 | ROOR ---
Patient Name: Eliseer Spangler Procedure Date: 10/15/2017 2:26 PM Date of : 1935 Age: 82 Room: [facility] Gender: Male Note Status: Finalized Procedure: Total Colonoscopy to Cecum Indications: Rectal bleeding Providers: Sandip Hutchins MD Referring MD: MARY COY JR, MD Requesting Provider: Medicines: Monitored Anesthesia Care Complications: No immediate complications. Procedure: Pre-Anesthesia Assessment: - The heart rate, respiratory rate, oxygen saturations, blood pressure, adequacy of pulmonary ventilation, and response to care were monitored throughout the procedure. The Colonoscope was introduced through the anus and advanced to the cecum, identified by appendiceal orifice and ileocecal valve. The colonoscopy was performed without difficulty. The patient tolerated the procedure well. The quality of the bowel preparation was good. Findings: The perianal and digital rectal examinations were normal. Non-bleeding internal hemorrhoids were found during retroflexion. The hemorrhoids were small and Grade I (internal hemorrhoids that do not prolapse). Multiple small and large-mouthed diverticula were found in the recto-sigmoid colon, sigmoid colon and descending colon. The exam was otherwise without abnormality on direct and retroflexion views. Impression: - Non-bleeding internal hemorrhoids. - Diverticulosis in the recto-sigmoid colon, in the sigmoid colon and in the descending colon. - The examination was otherwise normal on direct and retroflexion views. - No specimens collected. - The exam was otherwise normal to the cecum. Recommendation: - Patient has a contact number available for emergencies. The signs and symptoms of potential delayed complications were discussed with the patient. Return to normal activities tomorrow. Written discharge instructions were provided to the patient. - High fiber diet. - Return patient to [facility] for ongoing care. - The findings and recommendations were discussed with the patient's family. Sandip Hutchins MD Sandip Hutchins MD 10/15/2017 2:45:13 PM This report has been signed electronically. Number of Addenda: 0 Note Initiated On: 10/15/2017 2:26 PM Estimated Blood Loss: Estimated blood loss: none.
[2017-10-15] MEDS: TAMSULOSIN 0.4 MG CAP PO SCH (20:03)
--- NOTE | 2017-10-15 21:42 | IPNPDOC ---
Subjective Date Seen The patient was seen on 10/15/17. Subjective Chief Complaint/HPI The patient is a 82-year-old male admitted with a reason for visit of Gi Bleed. No acute complaints overnight. Feeling better, and BRBPR has resolved. NPO since midnight for colonoscopy with Dr. Hutchins today. Constitutional: Denies: Chills, Fever, Weakness Eyes: Denies: Pain, Vision change ENT: Denies: Head Aches, Dysphagia Pulmonary: Denies: Dyspnea, Cough Cardiovascular: Denies: Chest Pain, Palpitations, Edema, Lt Headedness Gastrointestinal: Reports: Diarrhea (with GoLytly), Denies: Nausea, Vomiting, Abdominal Pain, Melena, Hematochezia (resolved) Genitourinary: Denies: Hematuria Neurological: Denies: Weakness, Numbness Psych: Reports: Mood Normal Objective Physical Examination General Exam: Positive: Alert, Cooperative, No Acute Distress Eye Exam: Positive: PERRLA, Conjunctiva & lids normal, EOMI, Sclera icteric ENT Exam: Positive: Atraumatic, Mucous membr. moist/pink, Tongue Midline, Nares Patent, Pinna Normal Neck Exam: Positive: Supple, Negative: Lymphadenopathy Chest Exam: Positive: Clear to auscultation, Normal air movement, Negative: Rales, Rhonchi, Wheezing Heart Exam: Positive: Rate Normal, Regular Rhythm, Normal S1, Normal S2, Negative: Murmurs Abdomen Exam: Positive: BS Hyperactive, Soft, Negative: Tenderness Extremity Exam: Positive: Normal pulses, Negative: Clubbing, Cyanosis, Edema, Tenderness Skin Exam: Positive: Nl turgor and temperature, Negative: Rash Neuro Exam: Positive: Normal Speech, Strength at 5/5 X4 ext, Normal Tone, Sensation Intact Psych Exam: Positive: Mental status NL, Mood NL, Memory Intact, Oriented x 3 Assessment /Plan Assessment Hematochezia presented with BRBPR with clots since Friday, soaking through pads and bleeding even at rest. Per pt, negative colonoscopies previously. FOBT positive on admission pt states he is no longer bleeding CT abdomen revealed diffuse diverticulosis. Likely cause of BRBPR GI panel & blood cultures negative cbc q6h. H&H stable since admission. No transfusion yet Dr. Hutchins consulted, plan to scope today. Appreciate GI's input Positive orthostatics for both HR & BP, pt is NOT symptomatic likely 2/2 blood loss & dehydration keep pt on IV fluids and repeat orthostatics Back Pain pt was originally scheduled to have MRI done Monday 10/15. Spoke with Imaging , and updated pt they will have to reschedule MRI outpatient pain management consulted GERD Hold home PO Protonix IV Protonix bid inpatient History of TIA s/p left carotid endarterectomy Hold ASA 81mg due to GI bleed BPH Continue home Flomax Hx prostate cancer s/p radiation, 2003 DVT ppx TEDs/SCDs. Avoid anticoagulation due to active bleed Plan/VTE VTE Prophylaxis Ordered?: Yes (RALPH/SCD) VS, I&O, 24H, Fishbone Vital Signs/I&O Vital Signs Date Time Temp Pulse Resp B/P (MAP) Pulse Ox O2 Delivery O2 Flow Rate FiO2 10/15/17 05:15 97.9 71 18 143/66 (91) 97 Room Air Laboratory Data 24H LABS Laboratory Tests 2 10/15/17 06:05: Nucleated Red Blood Cells % (auto) 0.0, Anion Gap 8, Glomerular Filtration Rate > 60.0, Blood Urea Nitrogen 13, Creatinine 0.91, Sodium Level 143, Potassium Level 3.6, Chloride Level 110H, Carbon Dioxide Level 25, Calcium Level 8.5L CBC/BMP Laboratory Tests 10/14/17 12:09 10/14/17 17:58 10/15/17 00:00 10/15/17 06:05 Red Blood Count 3.95 L, Mean Corpuscular Volume 94.7, Mean Corpuscular Hemoglobin 32.2, Mean Corpuscular Hemoglobin Concent 34.0, Red Cell Distribution Width 12.5, Calcium Level 8.5 L Microbiology Microbiology 10/13/17 Blood Culture - Preliminary, Resulted No growth after 24 hours . All specim... 10/13/17 Blood Culture - Preliminary, Resulted No growth after 24 hours . All specim... 10/14/17 Gastrointestinal Tract Panel (PCR) - Final, Complete 10/14/17 Stool Occult Blood (BIBIANA) - Final, Complete GME ATTESTATION GME ATTESTATION My faculty preceptor for this patient encounter was physically present during the encounter and was fully available. All aspects of the patient interview, examination, medical decision making process, and medical care plan development were reviewed and approved by the faculty preceptor. The faculty preceptor is aware and concurs with the plan as stated in the body of this note and will attest to such by his/her cosignature. PEDRO PATHAK DO Oct 15, 2017 08:36
[2017-10-16] VITALS (7 sets, daily range): BP systolic 112–144; BP diastolic 62–87
[2017-10-16] MEDS: hydrALAZINE INJ 20 MG/ML VIAL IV SCH ×2 (01:00→08:57)
[2017-10-16] MEDS: PANTOPRAZOLE 40MG INJ (PROTONIX) (C9113) IV SCH (05:26)
[2017-10-16] MEDS: SLF 3 ML SYR IV SCH (05:26)
[2017-10-16 06:17] LABS: MEAN CORPUSCULAR HEMOGLOBIN 31.6 pg (27.0-33.0); MEAN CORPUSCULAR HGB CONC 34.1 g/dl (32.0-36.5); MEAN CORPUSCULAR VOLUME 92.5 fl (80.0-96.0); PLATELET COUNT, AUTOMATED 242 10^3/uL (150-450); RED CELL DISTRIBUTION WIDTH 12.3 % (11.5-14.5); WHITE BLOOD COUNT 9.1 10^3/uL (4.0-10.0)
[2017-10-16 06:25] LABS: ANION GAP 9 MEQ/L (8-16); BLOOD UREA NITROGEN 14 MG/DL (7-18); CALCIUM LEVEL 8.6 MG/DL (8.8-10.2); CARBON DIOXIDE LEVEL 23 MEQ/L (21-32); CHLORIDE LEVEL 108 MEQ/L (98-107); CREATININE FOR GFR 1.02 MG/DL (0.70-1.30); GLOMERULAR FILTRATION RATE > 60.0 (>35); GLUCOSE, FASTING 106 MG/DL (83-110); POTASSIUM SERUM 3.8 MEQ/L (3.5-5.1); SODIUM LEVEL 140 MEQ/L (136-145)
--- NOTE | 2017-10-16 08:21 | DS.PDOC ---
Discharge Summary General Date of Admission Oct 13, 2017 at 15:50 Date of Discharge 10/16/17 Primary Care Physician: Paco Knight Attending Physician: SAVANNAH JOHNS MD Specialist/Consultants Involve: Sandip Hutchins Discharge Summary PROCEDURES PERFORMED DURING STAY: Colonoscopy ADMITTING DIAGNOSES: 1. Hematochezia 2. Acute Kidney Injury 3. . DISCHARGE DIAGNOSES: 1. Diverticular bleed 2. VERONICA 3. TIA, s/p left carotid endarterectomy 4. Prostate cancer, s/p radiation, 2004 5. Borderline diabetes 6. BPH 7. GERD COMPLICATIONS/CHIEF COMPLAINT: Gi Bleed. HISTORY OF PRESENT ILLNESS: Pt presented to ED with complaint of bright red blood per rectum with passage of clots over the past few days. Pt stated he had been wearing pads that he has soaked through even at rest. Associated with lightheadedness when walking. Stated this has happened once before, but was less severe, when diagnosed with internal hemorrhoids. Denied sick contacts, travel, medication changes. Denied all other ROS, including chest pain, shortness of breath, dizziness, abdominal pain, hematuria, n/v, weight loss. Per patient, previous colonoscopy around 4 years ago was negative, an endoscopy in March this year by Dr. Hutchins was performed for dilation for dysphagia. In the ED, vitals were WNL, lactic acid elevated at 2.9 and WBC 11.9. H&H on admission stable at 14.6 & 43.9 respectively. HOSPITAL COURSE: Orthostatics were positive by both HR & BP, but pt asymptomatic. Lactic acidosis, VERONICA, and leukocytosis resolved with IV fluids and bowel rest. H&H was stable throughout admission and did not require transfusion. Pt's bleeding slowed since pt had been made NPO and on fluids. GI panel & blood cultures negative for infectious etiology. GI Dr. Hutchins was consulted and performed a colonoscopy that revealed nonbleeding internal hemorrhoids, and diffuse diverticula as had been seen on abdomen CT. After colonoscopy, diet was advanced and pt tolerated well and no longer had BRBPR. He was deemed medically stable and cleared for discharge. DISCHARGE MEDICATIONS: Please see below. ALLERGIES: Please see below. PHYSICAL EXAMINATION ON DISCHARGE: VITAL SIGNS: Please see below. GENERAL: NAD, A&Ox3 HEENT: normocephalic, atraumatic, PERRLA, EOMI NECK: supple, no adenopathy CARDIOVASCULAR EXAMINATION: RRR, normal S1 S2 RESPIRATORY EXAMINATION: CTAB, no wheezing ABDOMINAL EXAMINATION: soft, NT, ND EXTREMITIES: no edema, clubbing ,cyanosis, 2+ pulses SKIN: no lesions, pink warm dry NEUROLOGICAL EXAMINATION: no motor or sensory loss PSYCHIATRIC EXAMINATION: normal mood & affect LABORATORY DATA: Please see below. IMAGING: * 10/13 CXR: No acute cardiopulmonary process. * 10/13 CT abdomen & pelvis: Rectal bleeding may be related to diffuse diverticulosis, but no evidence for acute diverticulitis or acute enteric process. Fecal impaction at the rectum distended to 5.7 cm should be correlated clinically. A 4 cm simple right renal cyst. No further acute abdominopelvic pathology appreciated. PROGNOSIS: good ACTIVITY: As tolerated DIET: high fiber, low fat DISCHARGE INSTRUCTIONS: 1. F/u with PCP in 3-5 days 2. Return to ED for emergency DISCHARGE CONDITION: Stable TIME SPENT ON DISCHARGE: Greater than 40 minutes. Vital Signs/I&Os Vital Signs Date Time Temp Pulse Resp B/P (MAP) Pulse Ox O2 Delivery O2 Flow Rate FiO2 10/16/17 08:01 97.8 92 18 138/73 (94) 97 Room Air Laboratory Data Labs 24H Laboratory Tests 2 10/16/17 05:51: Nucleated Red Blood Cells % (auto) 0.0, Anion Gap 9, Glomerular Filtration Rate > 60.0, Blood Urea Nitrogen 14, Creatinine 1.02, Sodium Level 140, Potassium Level 3.8, Chloride Level 108H, Carbon Dioxide Level 23, Calcium Level 8.6L CBC/BMP Laboratory Tests 10/15/17 12:04 10/16/17 05:51 Red Blood Count 4.12 L, Mean Corpuscular Volume 92.5, Mean Corpuscular Hemoglobin 31.6, Mean Corpuscular Hemoglobin Concent 34.1, Red Cell Distribution Width 12.3, Calcium Level 8.6 L Microbiology Microbiology 10/13/17 Blood Culture - Preliminary, Resulted No Growth after 48 hours. All Specime... 10/13/17 Blood Culture - Preliminary, Resulted No Growth after 48 hours. All Specime... 10/14/17 Gastrointestinal Tract Panel (PCR) - Final, Complete 10/14/17 Stool Occult Blood (BIBIANA) - Final, Complete Discharge Medications Scheduled (Calcium + D3 600-200 mg-Unit) 1 Tab Tab, 1 TAB PO BID, (Reported) (Multi-Vitamins) 1 Tab Tab, 1 TAB PO DAILY, (Reported) Aspirin (Aspir-81) 81 Mg Tab, 81 MG PO DAILY, (Reported) Cetirizine HCl (Zyrtec Allergy) 10 Mg Cap, 10 MG PO DAILY, (Reported) Fish Oil (Fish Oil) 1,000 Mg Cap, 1,000 MG PO BID, (Reported) Omeprazole (Omeprazole) 40 Mg Cap, 40 MG PO DAILY, (Reported) Tamsulosin Hydrochloride (Flomax) 0.4 Mg Cap, 0.8 MG PO QPM, (Reported) Scheduled PRN Ibuprofen (Ibuprofen) 200 Mg Cap, 400 MG PO Q8H PRN for PAIN, (Reported) Allergies Coded Allergies: Cephalosporins (Unverified Allergy, Intermediate, HIVES, 05/15/17) GME ATTESTATION GME ATTESTATION My faculty preceptor for this patient encounter was physically present during the encounter and was fully available. All aspects of the patient interview, examination, medical decision making process, and medical care plan development were reviewed and approved by the faculty preceptor. The faculty preceptor is aware and concurs with the plan as stated in the body of this note and will attest to such by his/her cosignature. PEDRO PATHAK DO Oct 16, 2017 08:21
== END 2017-10-16 12:41 | disposition home or self-care (01) | DRG 378 ==
LOC: M ED 10:30 → M ED INP 15:50 → M PCU 10-14 16:07
PROVIDERS: ADMIT Hospitalist; ATTEND Internal Medicine
PROC: 0DJD8ZZ Inspection of Lower Intestinal Tract, Via Natural or Artificial Opening Endoscopic (ICD-10-PCS; principal; 2017-10-15 14:15)
DX: K57.31 Diverticulosis of large intestine without perforation or abscess with bleeding (principal); E87.2 Acidosis; N17.9 Acute kidney failure, unspecified; K21.9 Gastro-esophageal reflux disease without esophagitis; K22.70 Barrett's esophagus without dysplasia; R73.03 Prediabetes; N40.0 Benign prostatic hyperplasia without lower urinary tract symptoms; R03.0 Elevated blood-pressure reading, without diagnosis of hypertension; E86.0 Dehydration; M54.9 Dorsalgia, unspecified; K64.0 First degree hemorrhoids; Z92.3 Personal history of irradiation; Z88.1 Allergy status to other antibiotic agents; Z86.73 Personal history of transient ischemic attack (TIA), and cerebral infarction without residual deficits; Z96.653 Presence of artificial knee joint, bilateral; Z79.82 Long term (current) use of aspirin; Z98.1 Arthrodesis status; Z85.46 Personal history of malignant neoplasm of prostate; Z87.891 Personal history of nicotine dependence; Z79.899 Other long term (current) drug therapy

== ENCOUNTER → 2017-10-20 | Outpatient (CLI) | payer MEDICARE ==
[~2017-10-20] MED LIST changes: +ISOVUE-370 76% 100ML VIAL (Q9967) As Ordered ONE; +LIDOCAINE 2% INJ 100 MG/5 ML SDV (FOR ANES.) As Ordered ONE; -OMEPRAZOLE 20 MG CAP PO SCH; +PROHANCE 279.3MG/ML 15ML VIAL (A9576) As Ordered ONE; +PROPOFOL 200 MG/20 ML VIAL As Ordered ONE; +TAMSULOSIN
--- NOTE | 2017-10-20 13:51 | REP ---
MRI LUMBAR SPINE WITHOUT AND WITH CONTRAST: HISTORY: Spinal fusion. CONTRAST: ProHance 16 mL. Decreased signal intensity on T2-weighted images is present in the lumbar intervertebral discs. The discs are decreased in height. These findings are consistent with disc degeneration. A diffuse disc bulge is present at the L1-2 level. There is minimal compression of the thecal sac. The L1 nerves exit the neural foramina without compression. A diffuse disc bulge is present at the L2-3 level. There is hypertrophy of the ligamenta flava and posterior articulating facets. These findings produce moderate central canal stenosis. The L2 nerves exit the neural foramina without compression. The patient is status post L3-4 anterior and posterior spinal fusion. A metal cage is present anteriorly and metal rods and pedicle screws posteriorly. A diffuse disc bulge is present. This abuts the thecal sac. There is hypertrophy of the posterior articulating facets. There are 3 mm of grade 1 spondylolisthesis of L3 on 4. The L3 nerves exit the neural foramina without compression. A diffuse disc bulge is present at the L4-5 level. There is minimal compression of the thecal sac. There is hypertrophy of the posterior articulating facets. There is compression of the right L4 nerve in the neural foramen. The left L4 nerve exits the neural foramen without compression. A diffuse disc bulge is present at the L5-S1 level. This abuts the thecal sac. There is hypertrophy of the posterior articulating facets. There is compression of the right L5 nerve in the neural foramen. The left L5 nerve exits the neural foramen without compression. The conus medullaris is normal in appearance terminating at the level of the T12-L1 intervertebral disc. Normal signal intensity is present in the lumbar vertebral bodies. IMPRESSION: 1. Diffuse disc bulge at the L1-2 and L4-5 levels. There is compression of the right L4 nerve in the neural foramen. 2. Moderate central canal stenosis at the L2-3 level secondary to disc bulge, ligamentous and facet hypertrophy. 3. The patient is status post L3-4 anterior and posterior spinal fusion. 4. Diffuse disc bulge at the L5-S1 level. This abuts the thecal sac. There is compression of the right L5 nerve in the neural foramen. Signed by Nilo Marsh MD 10/20/2017 02:00 P
== END ==
LOC: M RAD 11:12
PROVIDERS: ATTEND Anesthesiology
DX: M51.26 Other intervertebral disc displacement, lumbar region (principal); M48.061 Spinal stenosis, lumbar region without neurogenic claudication; Z98.1 Arthrodesis status
CPT/HCPCS: 72158; A9576; Q9967

== ENCOUNTER → 2017-10-21 | Outpatient (CLI) | payer MEDICARE ==
[~2017-10-21] MED LIST changes: -ISOVUE-370 76% 100ML VIAL (Q9967) As Ordered ONE; -LIDOCAINE 2% INJ 100 MG/5 ML SDV (FOR ANES.) As Ordered ONE; -PROHANCE 279.3MG/ML 15ML VIAL (A9576) As Ordered ONE; -PROPOFOL 200 MG/20 ML VIAL As Ordered ONE
--- NOTE | 2017-11-02 23:48 | ECWPNPC ---
PATIENT NAME: MERA DACOSTA : 1935 GENDER: MALE VISIT DATE: 10/21/2017 DISCHARGE DATE: 10/21/17 0000 VISIT LOCKED DATE TIME: PHYSICIAN: MATTHEW KINCAID RESOURCE: MATTHEW KINCAID REASON FOR APPOINTMENT 1. LOW BACK PAIN HISTORY OF PRESENT ILLNESS HISTORY OF PRESENT ILLNESS: PAIN THE PATIENT DESCRIBES THE PAIN... 82 YEAR OLD MALE PATIENT WITH HISTORY OF CHRONIC LOW BACK PAIN. PATIENT DESCRIBES THE PAIN ACHING WITH A PAIN SCORE OF 10/10. PATIENT STATES THAT HE HAS HAD LOWER BACK PAIN FOR 12-16 YEARS AND STATES THAT HIS PAIN STARTED AFTER A BACK SURGERY.PATIENT STATES THAT THE PAIN MAKES IT DIFFICULT TO MOVE AND DO DAILY ACTIVITIES. PATIENT STATES THAT SITTING DECREASES THE PAIN IN THE LOWER BACK. PATIENT REPORTS USING IBUPROFEN TO AID IN PAIN RELIEF. PATIENT REPORTS TRYING PHYSICAL THERAPY AND REPORTS NO RELIEF FROM IT. PATIENT DENIES UNEXPLAINABLE WEIGHT LOSS, FEVER, CHILLS, NEW CHANGES ON HIS URINARY OR BOWEL CONTROL. FALL RISK SCREENING: SCREENING :NO FALLS IN THE PAST YEAR CURRENT MEDICATIONS TAKING TAMSULOSIN HCL 0.4 MG CAPSULE EXTENDED RELEASE 24 HOUR 2 CAPSULES 30 MINUTES AFTER THE SAME MEAL EACH DAY ORALLY ONCE A DAY TAKING ASPIR-81 81 MG TABLET DELAYED RELEASE 1 TABLET ORALLY ONCE A DAY TAKING OMEPRAZOLE 40 MG CAPSULE DELAYED RELEASE 1 CAPSULE ORALLY ONCE A DAY TAKING CETIRIZINE HCL 10 MG TABLET 1 TABLET ORALLY ONCE A DAY TAKING ONE DAILY COMPLETE FOR MEN - TABLET 1 TAB ORALLY DAILY TAKING CITRACAL CALCIUM+D 1 TAB ORALLY BID TAKING FISH OIL 1200 MG CAPSULE 1 CAPSULE ORALLY BID NOT-TAKING IBUPROFEN 200 MG TABLET 1 TABLET WITH FOOD OR MILK NEEDED ORALLY EVERY 6 HRS DISCONTINUED MULTIVITAMINS CAPSULE DIRECTED ORALLY DAILY DISCONTINUED VITAMIN D3 COMPLETE - TABLET ORALLY DISCONTINUED VALIUM 5 MG TABLET 1 TABLET NEEDED ORALLY 2 HRS BEFORE MRI MAY REPEAT 30 MINUTES [facility] MRI MDD2 MEDICATION LIST REVIEWED AND RECONCILED WITH THE PATIENT PAST MEDICAL HISTORY BPH ESOPHAGEAL REFLUX LOW BACK PAIN ALLERGIES CEPHALEXIN: "RED LIKE A BEET ALL OVER": ALLERGY SOCIAL HISTORY GENERAL: TOBACCO USE ARE YOU A:FORMER SMOKER HOW LONG HAS IT BEEN SINCE YOU LAST SMOKED? 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 EXERCISE: NO REGULAR EXERCISE. MARITAL STATUS: . OTHERS AT HOME: SPOUSE, CHILD. NONDENOMINATIONAL [id number] ORTHODOX LANGUAGE LANGUAGES SPOKEN:ROMANSH LEARNING BARRIERS / SPECIAL NEEDS HEARING IMPAIRED?YES :HEARING AIDES BILATERAL VISION IMPAIRED?YES :CORRECTIVE LENSES COGNITIVELY IMPAIRED?NO READINESS TO LEARN?YES LEARNING PREFERENCES?YES :BOOKLETS, HANDOUTS LEARNING CAPABILITIES PRESENT?YES EMOTIONAL BARRIERS?NO SPECIAL DEVICES?NO FILER REPAIRER NEEDED?NO PAIN CLINIC PFS, CLERGY, PUBLIC HEALTH REFERRALS PFS REFERRAL NEEDED?NO CLERGY REFERRAL NEEDED?NO PUBLIC HEALTH REFERRAL NEEDED?NO WAS THE PROVIDER NOTIFIED OF ANY PERTINENT INFO?NO HAS THE PATIENT BEEN EDUCATED REGARDING HIS/HER PLAN OF CARE?YES HAS THE PATIENT BEEN EDUCATED REGARDING PAIN, THE RISK FOR PAIN, THE IMPORTANCE OF EFFECTIVE PAIN MANAGEMENT, AND THE PAIN ASSESSMENT PROCESS?YES REVIEWED BY: 10/21/17 1600 AD. ADVANCE DIRECTIVES HEALTH CARE PROXY?YES NAME OF HCP --[facility] CONTACT # FOR HCP [phone] DO YOU HAVE A COPY WITH YOU?NO ON FILE WITH THE HOSPITAL DO YOU HAVE A DNR?NO WOULD YOU LIKE MORE INFORMATION?NO LIVING WILL?NO WOULD YOU LIKE MORE INFORMATION?NO POWER OF DIGITIZER?YES NAME OF POA? CHUCHO DACOSTA PHONE # OF POA? [phone] DO YOU HAVE A COPY WITH YOU?NO HAVE YOU HAD A COPY OF ANY ADVANCED DIRECTIVE (LISTED ABOVE) ON A PREVIOUS MEDICAL RECORDS AT [facility]?YES DOMESTIC VIOLENCE DO YOU FEEL SAFE IN YOUR ENVIRONMENT?YES REVIEW OF SYSTEMS REVIEWED BY: PROVIDER: MATTHEW KINCAID MD . CONSTITUTIONAL: ANY CHANGE IN YOUR MEDICAL CONDITION? NO . CHILLS NO . FEVER NO . INFECTION: DO YOU HAVE NEW INFECTIONS? NO . DO YOU HAVE HISTORY OF MRSA? NO . MUSCULOSKELETAL: ANY NEW PATTERNS OF PAIN OR NUMBNESS? NO . GASTROENTEROLOGY: ANY NEW CHANGE IN BOWEL CONTROL? NO . GENITOURINARY: ANY NEW CHANGE IN BLADDER CONTROL? NO . IS THERE A CHANCE YOU COULD BE ? NO . HEMATOLOGY/LYMPH: DO YOU TAKE ANY BLOOD THINNERS? (FOR EXAMPLE- COUMADIN, PLAVIX, AGGRENOX, PLATEL, PRADAXA, OR XARELTO) NO . WHEN WAS YOUR LAST DOSE? DATE: TIME: . NEUROLOGY: HAVE YOU FALLEN IN THE PAST 6 MONTHS? NO . ANY NEW EXTREMITY NUMBNESS OR WEAKNESS? NO . CARDIOLOGY: DO YOU HAVE A PACEMAKER OR DEFIBRILLATOR? NO . RESPIRATORY: HAVE YOU BEEN SICK IN THE PAST WEEK? NO . FEVER NO . FLU LIKE SYMPTOMS? NO . COUGH NO . INTEGUMENTARY: DO YOU HAVE ANY RASHES OR OPEN SORES? NO . ALLERGIC/IMMUNO: ARE YOU ALLERGIC TO SHELLFISH OR IV DYE? NO . ANY NEW ALLERGIES? NO . PSYCHIATRIC: DO YOU HAVE THOUGHTS OF HURTING YOURSELF OR SOMEONE ELSE? NO . ARE YOU ABUSED, NEGLECTED, OR IN AN UNSAFE ENVIRONMENT? NO . ENDOCRINOLOGY: ARE YOU DIABETIC? NO . OTHER: DO YOU NEED ANY PRESCRIPTIONS? NO . IF YES, PLEASE LIST: ____ . ANY NEW PROBLEMS WITH YOUR MEDICATIONS? NO . WHEN DID YOU LAST EAT? ____ . WHEN DID YOU LAST DRINK? ____ . WHAT DID YOU LAST DRINK? ____ . NAME OF PERSON DRIVING YOU HOME? ____ . DO YOU HAVE ANY OTHER QUESTIONS OR CONCERNS NO . VITAL SIGNS WT 181.0 LBS, HT 68", BMI 27.52 INDEX, BP 181/70 R ARM, REPEAT BP 166/71 L ARM, HR 83 /MIN, RR 16 /MIN, TEMP 96.1 F, OXYGEN SAT % 96%, SAFE IN ENV? (Y/N) Y, NA INITIALS TL 1546, REVIEWED BY: MAME. EXAMINATION : .PATIENT IS ALERT O X 3 AND COOPERATIVE. PATIENT WALKS IN FLEXED POSITION. WIDE ANGLED GAIT. TENDERNESS IN THE LOWER BACK OVER SACROILIAC JOINT AND LUMBAR FACET JOINT. 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 DACOSTA' PAIN MANAGEMENT CASE. AT THIS TIME THE PATIENT WILL CONTINUE WITH THE SAME MEDICATION REGIME BEFORE. MRI DONE ON 10/20/17 SHOWS DISC DEGENERATION, DIFFUSE DISC BULGE AT THE L1-L2, L2-L3. THERE IS ANTERIOR AND POSTERIOR SPINAL FUSION AT L3-L4. DISC BULGE IS PRESENT AT L4-L5. BASED ON THESE FINDINGS I FEEL THAT THE PATIENT WOULD BENEFIT FROM EITH A [facility] OR A [facility]. I WILL LOOK AT THE PATIENT UNDER X-RAY TO DECIDE WHICH PROCEDURE WILL BEST BENEFIT THE PATIENT. RISKS, BENEFITS, AND ALTERNATIVES OF EACH INJECTION WERE GIVEN TO THE PATIENT. INSTRUCTIONS WERE GIVEN, QUESTIONS WERE ANSWERED, PATIENT REPORTS UNDERSTANDING AND AGREES WITH THE PLAN. I, ALYSSA HERNANDEZ, DOCUMENTED THE ABOVE INFORMATION ACTING A SCRIBE FOR DR. KINCAID. I HAVE REVIEWED THE ABOVE DOCUMENT, WRITTEN BY ALYSSA ORDONEZIBHerbert AND I VERIFY THAT IT IS ACCURATE. PREVENTIVE MEDICINE GAVE INFO ON [facility] AND FACET JOINT INJECTIONS. PROCEDURE CODES FA211 ESTABILISHED PATIENT [facility] CHARGE G8730 PAIN ASSESS POS TOOL F/U PLAN DOC G8427 DOC MEDS VERIFIED W/PT OR RE DISPOSITION & COMMUNICATION FOLLOW UP 3 WEEKS ELECTRONICALLY SIGNED BY MATTHEW KINCAID MD ON 11/02/2017 AT 07:01 PM EST DISCLAIMER : THIS IS A VISIT SUMMARY EXTRACTED FROM THE [employer] CHART. IT IS NOT A COPY OF THE [employer] PROGRESS NOTE. MTDD
== END ==
LOC: M PAIN 15:45
PROVIDERS: ATTEND Anesthesiology
DX: G89.29 Other chronic pain (principal); M51.16 Intervertebral disc disorders with radiculopathy, lumbar region; M46.1 Sacroiliitis, not elsewhere classified; N40.0 Benign prostatic hyperplasia without lower urinary tract symptoms; K21.9 Gastro-esophageal reflux disease without esophagitis; Z87.891 Personal history of nicotine dependence; Z79.82 Long term (current) use of aspirin; Z79.899 Other long term (current) drug therapy; Z88.1 Allergy status to other antibiotic agents

== ENCOUNTER → 2017-11-25 | Outpatient (CLI) | payer MEDICARE ==
[~2017-11-25] MED LIST changes: -ASPI81TA85 PO; +BUPIVACAINE HCL 0.25% 30 ML VIAL As Ordered; -CALC600T57 PO; -CLIN150C14 PO; -FISH1000 PO; -FLOM5CAP PO; -GABA-282 PO; -GLUC1CAP9; -IBUP200C10 PO; +ISOVUE-M 300 61% 15ML VIAL (Q9967) As Ordered; +LIDOCAINE 1% SDV INJ 30 ML VIAL As Ordered; -MULTTAB4 PO; -OMEP40CA2 PO; -TAMS0.4C2 PO; -TAMSULOSIN; +TRIAMCINOLONE ACETONIDE SUSP 40 MG/ML VIAL (J3301) As Ordered; -ZYRT10CA PO
== END ==
LOC: M PAIN 10:30
DX: G89.29 Other chronic pain (principal); M47.816 Spondylosis without myelopathy or radiculopathy, lumbar region; K21.9 Gastro-esophageal reflux disease without esophagitis; Z88.8 Allergy status to other drugs, medicaments and biological substances; Z79.82 Long term (current) use of aspirin; Z79.899 Other long term (current) drug therapy
CPT/HCPCS: J3301

== ENCOUNTER → 2017-12-05 | Outpatient (CLI) | payer MEDICARE | LOC: M PAIN 10:00 | DX: G89.29 Other chronic pain (principal); M47.816 Spondylosis without myelopathy or radiculopathy, lumbar region; M47.817 Spondylosis without myelopathy or radiculopathy, lumbosacral region; K21.9 Gastro-esophageal reflux disease without esophagitis; Z79.82 Long term (current) use of aspirin; Z79.899 Other long term (current) drug therapy; Z88.8 Allergy status to other drugs, medicaments and biological substances; Z87.891 Personal history of nicotine dependence | CPT/HCPCS: G0463 ==

== ENCOUNTER → 2017-12-23 | Outpatient (CLI) | payer MEDICARE ==
[~2017-12-23] MED LIST changes: -TRIAMCINOLONE ACETONIDE SUSP 40 MG/ML VIAL (J3301) As Ordered
== END ==
LOC: M PAIN 10:15
DX: M47.816 Spondylosis without myelopathy or radiculopathy, lumbar region (principal); M47.817 Spondylosis without myelopathy or radiculopathy, lumbosacral region; K21.9 Gastro-esophageal reflux disease without esophagitis; Z79.82 Long term (current) use of aspirin; Z79.899 Other long term (current) drug therapy; Z88.8 Allergy status to other drugs, medicaments and biological substances; Z87.891 Personal history of nicotine dependence
CPT/HCPCS: Q9967

== ENCOUNTER → 2018-01-08 | Outpatient (CLI) | payer MEDICARE | LOC: M PAIN 09:00 | DX: M47.816 Spondylosis without myelopathy or radiculopathy, lumbar region (principal); M47.817 Spondylosis without myelopathy or radiculopathy, lumbosacral region; K21.9 Gastro-esophageal reflux disease without esophagitis; Z79.82 Long term (current) use of aspirin; Z79.899 Other long term (current) drug therapy; Z87.891 Personal history of nicotine dependence; Z88.8 Allergy status to other drugs, medicaments and biological substances | CPT/HCPCS: G0463 ==

== ENCOUNTER → 2018-02-04 | Outpatient (CLI) | payer MEDICARE | LOC: M PAIN 10:15 | DX: G89.29 Other chronic pain (principal); M47.816 Spondylosis without myelopathy or radiculopathy, lumbar region; M47.817 Spondylosis without myelopathy or radiculopathy, lumbosacral region; K21.9 Gastro-esophageal reflux disease without esophagitis; Z79.82 Long term (current) use of aspirin; Z79.899 Other long term (current) drug therapy; Z79.891 Long term (current) use of opiate analgesic; Z88.8 Allergy status to other drugs, medicaments and biological substances; Z87.891 Personal history of nicotine dependence | CPT/HCPCS: Q9967 ==

== ENCOUNTER → 2018-02-19 | Outpatient (CLI) | payer MEDICARE | LOC: M PAIN 13:30 | DX: M47.816 Spondylosis without myelopathy or radiculopathy, lumbar region (principal); M47.817 Spondylosis without myelopathy or radiculopathy, lumbosacral region; K21.9 Gastro-esophageal reflux disease without esophagitis; Z79.82 Long term (current) use of aspirin; Z79.899 Other long term (current) drug therapy; Z88.6 Allergy status to analgesic agent; Z88.8 Allergy status to other drugs, medicaments and biological substances; Z87.891 Personal history of nicotine dependence | CPT/HCPCS: G0463 ==

== ENCOUNTER → 2018-03-30 | Outpatient (CLI) | payer MEDICARE ==
[~2018-03-30] MED LIST changes: -ISOVUE-M 300 61% 15ML VIAL (Q9967) As Ordered; +TRIAMCINOLONE ACETONIDE SUSP 40 MG/ML VIAL (J3301) As Ordered
== END ==
LOC: M PAIN 13:00
DX: G89.29 Other chronic pain (principal); M47.817 Spondylosis without myelopathy or radiculopathy, lumbosacral region; M47.816 Spondylosis without myelopathy or radiculopathy, lumbar region; K21.9 Gastro-esophageal reflux disease without esophagitis; Z79.82 Long term (current) use of aspirin; Z79.899 Other long term (current) drug therapy; Z88.6 Allergy status to analgesic agent; Z88.8 Allergy status to other drugs, medicaments and biological substances; Z87.891 Personal history of nicotine dependence
CPT/HCPCS: J3301

== ENCOUNTER → 2018-04-21 | Outpatient (CLI) | payer MEDICARE | LOC: M PAIN 14:30 | DX: M79.1 Myalgia (principal); M47.817 Spondylosis without myelopathy or radiculopathy, lumbosacral region; M47.816 Spondylosis without myelopathy or radiculopathy, lumbar region; K21.9 Gastro-esophageal reflux disease without esophagitis; Z79.82 Long term (current) use of aspirin; Z79.899 Other long term (current) drug therapy; Z88.6 Allergy status to analgesic agent; Z88.8 Allergy status to other drugs, medicaments and biological substances; Z87.891 Personal history of nicotine dependence | CPT/HCPCS: G0463 ==

== ENCOUNTER → 2018-05-18 | Outpatient (CLI) | payer MEDICARE ==
[~2018-05-18] MED LIST changes: +BUPIVACAINE HCL 0.25% 10 ML VIAL As Ordered; -LIDOCAINE 1% SDV INJ 30 ML VIAL As Ordered
== END ==
LOC: M PAIN 11:30
DX: G89.29 Other chronic pain (principal); M79.1 Myalgia; M54.5 Low back pain; K21.9 Gastro-esophageal reflux disease without esophagitis; Z79.82 Long term (current) use of aspirin; Z79.899 Other long term (current) drug therapy; Z88.6 Allergy status to analgesic agent; Z88.8 Allergy status to other drugs, medicaments and biological substances; Z87.891 Personal history of nicotine dependence
CPT/HCPCS: J3301

== ENCOUNTER → 2018-06-05 | Outpatient (REF) | payer MEDICARE ==
[2018-06-05 17:49] LABS: ALBUMIN 3.5 GM/DL (3.2-5.2); ALBUMIN/GLOBULIN RATIO 1.09 (1.00-1.93); ALKALINE PHOSPHATASE 75 U/L (45-117); ALT/SGPT 30 U/L (12-78); ANION GAP 8 MEQ/L (8-16); AST/SGOT 14 U/L (7-37); BILIRUBIN,TOTAL 0.7 MG/DL (0.2-1.0); BLOOD UREA NITROGEN 29 MG/DL (7-18); CALCIUM LEVEL 9.2 MG/DL (8.8-10.2); CARBON DIOXIDE LEVEL 26 MEQ/L (21-32); CHLORIDE LEVEL 107 MEQ/L (98-107); CREATININE FOR GFR 1.23 MG/DL (0.70-1.30); GLOMERULAR FILTRATION RATE 59.8 (>35); GLUCOSE, FASTING 102 MG/DL (70-100); POTASSIUM SERUM 4.8 MEQ/L (3.5-5.1); SODIUM LEVEL 141 MEQ/L (136-145); TOTAL PROTEIN 6.7 GM/DL (6.4-8.2)
[2018-06-09 12:01] LABS: ALBUMIN 4.01 GM/DL (3.29-5.55); ALBUMIN % 59.8 % (55.8-66.1); ALPHA-1-GLOBULIN % 4.4 % (2.9-4.9); ALPHA-1-GLOBULINS 0.29 GM/DL (0.17-0.41); ALPHA-2-GLOBULINS % 13.5 % (7.1-11.8); BETA-1-GLOBULINS % 6.4 % (4.7-7.2); BETA-2-GLOBULINS % 5.8 % (3.2-6.5); GAMMA GLOBULIN % 10.1 % (11.1-18.8)
[2018-06-09 12:02] LABS: BETA-1-GLOBULINS 0.43 GM/DL (0.28-0.60); BETA-2-GLOBULINS 0.39 GM/DL (0.19-0.55); GAMMA GLOBULINS 0.68 GM/DL (0.65-1.58)
== END ==
LOC: M LABDRAW1 17:21
DX: M79.1 Myalgia (principal)
CPT/HCPCS: 84165

== ENCOUNTER → 2018-06-05 | Outpatient (CLI) | payer MEDICARE | LOC: M PAIN 11:00 | DX: M79.1 Myalgia (principal); M47.817 Spondylosis without myelopathy or radiculopathy, lumbosacral region; M47.816 Spondylosis without myelopathy or radiculopathy, lumbar region; K21.9 Gastro-esophageal reflux disease without esophagitis; Z79.82 Long term (current) use of aspirin; Z79.899 Other long term (current) drug therapy; Z88.8 Allergy status to other drugs, medicaments and biological substances; Z87.891 Personal history of nicotine dependence | CPT/HCPCS: G0463 ==

== ENCOUNTER → 2018-06-23 | Outpatient (CLI) | payer MEDICARE | LOC: M PAIN 14:45 | DX: Z53.29 Procedure and treatment not carried out because of patient's decision for other reasons (principal) ==

== ENCOUNTER → 2018-10-05 | Outpatient (REF) | payer MEDICARE ==
[2018-10-05 13:14] LABS: BASO # 0.1 10^3/uL (0.0-0.2); BASO % 0.7 % (0.0-1.0); EOS # 0.4 10^3/uL (0.0-0.50); EOS % 4.5 % (0.0-3.0); HEMATOCRIT 45.5 % (42.0-52.0); HEMOGLOBIN 14.8 g/dl (13.5-17.5); IMMATURE GRANULOCYTE % 0.5 % (0-3.0); LYMPH # 1.6 10^3/uL (1.5-4.5); LYMPH % 18.3 % (24.0-44.0); MEAN CORPUSCULAR HEMOGLOBIN 30.8 pg (27.0-33.0); MEAN CORPUSCULAR HGB CONC 32.5 g/dl (32.0-36.5); MEAN CORPUSCULAR VOLUME 94.6 fl (80.0-96.0); MONO # 0.8 10^3/uL (0.0-0.8); NEUTROPHILS # 5.9 10^3/uL (1.8-7.7); PLATELET COUNT, AUTOMATED 273 10^3/uL (150-450); RED BLOOD COUNT 4.81 10^6/uL (4.30-6.10); RED CELL DISTRIBUTION WIDTH 13.6 % (11.5-14.5); WHITE BLOOD COUNT 8.8 10^3/uL (4.0-10.0)
[2018-10-05 13:38] LABS: C REACTIVE PROTEIN QUANTITATIV < 0.30 MG/DL (0.00-0.30)
[2018-10-05 13:47] LABS: ERYTHROCYTE SEDIMENTATION RATE 4 mm/hr (0-20)
== END ==
LOC: M LABDRAW1 11:25
DX: S83.8X2A Sprain of other specified parts of left knee, initial encounter (principal); W18.30XA Fall on same level, unspecified, initial encounter; Y92.009 Unspecified place in unspecified non-institutional (private) residence as the place of occurrence of the external cause
CPT/HCPCS: 86140

== ENCOUNTER → 2018-10-07 | Outpatient (CLI) | payer MEDICARE | LOC: M PAIN 13:45 | DX: M51.9 Unspecified thoracic, thoracolumbar and lumbosacral intervertebral disc disorder (principal); M96.1 Postlaminectomy syndrome, not elsewhere classified; K21.9 Gastro-esophageal reflux disease without esophagitis; Z79.82 Long term (current) use of aspirin; Z79.899 Other long term (current) drug therapy; Z87.891 Personal history of nicotine dependence; Z98.890 Other specified postprocedural states | CPT/HCPCS: G0463 ==

== ENCOUNTER → 2018-10-19 | Outpatient (CLI) | payer MEDICARE ==
[~2018-10-19] MED LIST changes: -BUPIVACAINE HCL 0.25% 10 ML VIAL As Ordered; -BUPIVACAINE HCL 0.25% 30 ML VIAL As Ordered; +ISOVUE-M 300 61% 15ML VIAL (Q9967) As Ordered; +LIDOCAINE 1% SDV INJ 30 ML VIAL As Ordered; -TRIAMCINOLONE ACETONIDE SUSP 40 MG/ML VIAL (J3301) As Ordered; +methylPREDNISolone SUSP 40 MG/ML (DEPO-medrol) VIAL (J1030) As Ordered
== END ==
LOC: M PAIN 10:30
DX: M96.1 Postlaminectomy syndrome, not elsewhere classified (principal); M51.17 Intervertebral disc disorders with radiculopathy, lumbosacral region; K21.9 Gastro-esophageal reflux disease without esophagitis; Z79.82 Long term (current) use of aspirin; Z79.899 Other long term (current) drug therapy; Z88.6 Allergy status to analgesic agent; Z88.8 Allergy status to other drugs, medicaments and biological substances; Z86.79 Personal history of other diseases of the circulatory system; Z87.891 Personal history of nicotine dependence
CPT/HCPCS: J1030

== ENCOUNTER → 2018-11-20 | Outpatient (CLI) | payer MEDICARE ==
[~2018-11-20] MED LIST changes: +ASPI81TA85 PO; +CALC600T57 PO; +CLIN150C14 PO; +FISH1000 PO; +FLOM0.4C39 PO; +GABA-843 PO; +GLUC1CAP9; +IBUP200C25 PO; -ISOVUE-M 300 61% 15ML VIAL (Q9967) As Ordered; -LIDOCAINE 1% SDV INJ 30 ML VIAL As Ordered; +MULTTAB4 PO; +OMEP40CA2 PO; +TAMS0.4C2 PO; +TAMSULOSIN; +ZYRT10CA PO; -methylPREDNISolone SUSP 40 MG/ML (DEPO-medrol) VIAL (J1030) As Ordered
--- NOTE | 2018-12-07 00:14 | ECWPNPC ---
PATIENT NAME: MERA DACOSTA : 1935 GENDER: MALE VISIT DATE: 11/20/2018 DISCHARGE DATE: 11/20/18 1501 VISIT LOCKED DATE TIME: PHYSICIAN: MATTHEW KINCAID MD RESOURCE: MATTHEW KINCAID MD REASON FOR APPOINTMENT 1. POST PROCEDURE HISTORY OF PRESENT ILLNESS HISTORY OF PRESENT ILLNESS: PAIN THE PATIENT DESCRIBES THE PAIN... 83 YEAR OLD MALE PATIENT WITH A HISTORY OF CHRONIC LOW BACK PAIN. THE PATIENT DESCRIBES THE PAIN ACHING WITH A PAIN SCORE OF 6-9/10 DEPENDING ON PHYSICAL ACTIVITY. THE PATIENT WAS HERE FOR A LUMBAR EPIDURAL STEROID INJECTION ON 10/19/2018 AND REPORTS THAT HE ONLY HAD RELIEF FOR ONE DAY AND THEN THE PAIN RETURNED. THE PATIENT IS CURRENTLY USING TYLENOL TO AID IN PAIN RELIEF. PATIENT DENIES UNEXPLAINABLE WEIGHT LOSS, FEVER, CHILLS, NEW CHANGES ON HIS URINARY OR BOWEL CONTROL. FALL RISK SCREENING: SCREENING :NO FALLS IN THE PAST YEAR CURRENT MEDICATIONS UNKNOWN TYLENOL 500 MGS 2 TAB ORAL FOUR TIMES DAILY NEEDED UNKNOWN TAMSULOSIN HCL 0.4 MG CAPSULE EXTENDED RELEASE 24 HOUR 2 CAPSULES 30 MINUTES AFTER THE SAME MEAL EACH DAY ORALLY ONCE A DAY UNKNOWN ASPIR-81 81 MG TABLET DELAYED RELEASE 1 TABLET ORALLY ONCE A DAY UNKNOWN OMEPRAZOLE 40 MG CAPSULE DELAYED RELEASE 1 CAPSULE ORALLY ONCE A DAY UNKNOWN CETIRIZINE HCL 10 MG TABLET 1 TABLET ORALLY ONCE A DAY UNKNOWN ONE DAILY COMPLETE FOR MEN - TABLET 1 TAB ORALLY DAILY UNKNOWN CITRACAL CALCIUM+D 1 TAB ORALLY BID UNKNOWN FISH OIL 1200 MG CAPSULE 1 CAPSULE ORALLY BID MEDICATION LIST REVIEWED AND RECONCILED WITH THE PATIENT PAST MEDICAL HISTORY BPH ESOPHAGEAL REFLUX LOW BACK PAIN ALLERGIES CEPHALEXIN: "RED LIKE A BEET ALL OVER": ALLERGY IBUPROFEN: GI BLEED: SIDE EFFECTS SURGICAL HISTORY LEFT CAROTID ENDARTERECTOMY 2003 LUMBAR FUSION L3-4 09/2016 RIGHT PARTIAL KNEE 2004 LEFT PARTIAL KNEE 2004 PROSTATE SURGERY--SEEDS IMPLANTED 2003 CATARAC SURGERY--BILAT 05/2014,06/2014 INGUINAL HERNIA REPAIR 1992 CIRCUMCISION 1956 BASIL CELL CANCER REMOVAL 2017 FAMILY HISTORY FATHER: 75 YRS, DIAGNOSED WITH CANCER MOTHER: 69 YRS 2 SON(S) - HEALTHY. FATHER-COLON CA112/07/17 NIKKI BROWN RN. SOCIAL HISTORY GENERAL: TOBACCO USE ARE YOU A:FORMER SMOKER HOW LONG HAS IT BEEN SINCE YOU LAST SMOKED? QUIT 1966 ALCOHOL SCREENING DID YOU HAVE A DRINK CONTAINING ALCOHOL IN THE PAST YEAR?YES HOW OFTEN DID YOU HAVE SIX OR MORE DRINKS ON ONE OCCASION IN THE PAST YEAR?NEVER (0 POINTS) HOW MANY DRINKS DID YOU HAVE ON A TYPICAL DAY WHEN YOU WERE DRINKING IN THE PAST YEAR?1 OR 2 (0 POINTS) HOW OFTEN DID YOU HAVE A DRINK CONTAINING ALCOHOL IN THE PAST YEAR?TWO TO FOUR TIMES A MONTH (2 POINTS) POINTS2 INTERPRETATIONNEGATIVE RECREATIONAL DRUG USE DRUG USE?NO CAFFEINE CAFFEINE USE?NO SYNAGOGUE [id number] YAZIDI LANGUAGE LANGUAGES SPOKEN:DJIBOUTIAN LEARNING BARRIERS / SPECIAL NEEDS HEARING IMPAIRED?YES VISION IMPAIRED?YES COGNITIVELY IMPAIRED?NO :HEARING AIDES BILATERAL :CORRECTIVE LENSES READINESS TO LEARN?YES LEARNING PREFERENCES?YES :BOOKLETS, HANDOUTS LEARNING CAPABILITIES PRESENT?YES EMOTIONAL BARRIERS?NO SPECIAL DEVICES?NO SIGN MAKER NEEDED?NO DOMESTIC VIOLENCE DO YOU FEEL SAFE IN YOUR ENVIRONMENT?YES 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 EXERCISE: NO REGULAR EXERCISE. MARITAL STATUS: . OTHERS AT HOME: SPOUSE, CHILD. PAIN CLINIC PFS, CLERGY, PUBLIC HEALTH REFERRALS PFS REFERRAL NEEDED?NO CLERGY REFERRAL NEEDED?NO PUBLIC HEALTH REFERRAL NEEDED?NO WAS THE PROVIDER NOTIFIED OF ANY PERTINENT INFO?YES N/A HAS THE PATIENT BEEN EDUCATED REGARDING HIS/HER PLAN OF CARE?YES HAS THE PATIENT BEEN EDUCATED REGARDING PAIN, THE RISK FOR PAIN, THE IMPORTANCE OF EFFECTIVE PAIN MANAGEMENT, AND THE PAIN ASSESSMENT PROCESS?YES ADVANCE DIRECTIVE ADVANCE DIRECTIVE DISCUSSED WITH PATIENT:YES HCP- , CHUCHO [phone] REVIEWED 02/19/18 133REVIEWED 04/21/18 1500 BV05/18/18 1220 REVIEWED WITH PT. AD10/19/18 REVIEWED WITH PT 1057 BV. HOSPITALIZATION/MAJOR DIAGNOSTIC PROCEDURE FOR SURGERIES RECTAL BLEEDING DUE TO DIVERTICULITIS 09/2017 REVIEW OF SYSTEMS REVIEWED BY: PROVIDER: MATTHEW KINCAID MD . CONSTITUTIONAL: ANY CHANGE IN YOUR MEDICAL CONDITION? NO . CHILLS NO . FEVER NO . INFECTION: DO YOU HAVE NEW INFECTIONS? NO . DO YOU HAVE HISTORY OF MRSA? NO . MUSCULOSKELETAL: ANY NEW PATTERNS OF PAIN OR NUMBNESS? NO . GASTROENTEROLOGY: ANY NEW CHANGE IN BOWEL CONTROL? NO . GENITOURINARY: ANY NEW CHANGE IN BLADDER CONTROL? NO . IS THERE A CHANCE YOU COULD BE ? NO . HEMATOLOGY/LYMPH: DO YOU TAKE ANY BLOOD THINNERS? (FOR EXAMPLE- COUMADIN, PLAVIX, AGGRENOX, PLATEL, PRADAXA, OR XARELTO) NO . WHEN WAS YOUR LAST DOSE? DATE: TIME: . NEUROLOGY: HAVE YOU FALLEN IN THE PAST 6 MONTHS? NO LAST MAY . ANY NEW EXTREMITY NUMBNESS OR WEAKNESS? NO . CARDIOLOGY: DO YOU HAVE A PACEMAKER OR DEFIBRILLATOR? NO . RESPIRATORY: HAVE YOU BEEN SICK IN THE PAST WEEK? NO . FEVER NO . FLU LIKE SYMPTOMS? NO . COUGH NO . INTEGUMENTARY: DO YOU HAVE ANY RASHES OR OPEN SORES? NO . ALLERGIC/IMMUNO: ARE YOU ALLERGIC TO SHELLFISH OR IV DYE? NO . ANY NEW ALLERGIES? NO . PSYCHIATRIC: DO YOU HAVE THOUGHTS OF HURTING YOURSELF OR SOMEONE ELSE? NO . ARE YOU ABUSED, NEGLECTED, OR IN AN UNSAFE ENVIRONMENT? NO . ENDOCRINOLOGY: ARE YOU DIABETIC? NO . OTHER: DO YOU NEED ANY PRESCRIPTIONS? NO . IF YES, PLEASE LIST: ____ . ANY NEW PROBLEMS WITH YOUR MEDICATIONS? NO . WHEN DID YOU LAST EAT? ____ . WHEN DID YOU LAST DRINK? ____ . WHAT DID YOU LAST DRINK? ____ . NAME OF PERSON DRIVING YOU HOME? ____ . DO YOU HAVE ANY OTHER QUESTIONS OR CONCERNS NO . VITAL SIGNS WT 178.2 LBS, HT 68", BMI 27.09 INDEX, BP 130/79 MM HG, HR 98 /MIN, RR 18 /MIN, TEMP 96.5 F, OXYGEN SAT % 96%, SAFE IN ENV? (Y/N) YES, NA INITIALS DC 13:42, REVIEWED BY: KG. EXAMINATION GENERAL EXAMINATION: PATIENT IS ALERT O X 3 AND COOPERATIVE. PATIENT HAS DIFFICULTY WALKING. TENDERNESS IN THE PARASPINAL MUSCLE GROUP IN THE LOW BACK AREA. MRI OF THE LUMBAR SPINE DONE ON 10/20/2017 SHOWS BULGING DISCS AT MULTIPLE LEVELS AND A FUSION AT L3-L4. 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 DACOSTA'S PAIN MANAGEMENT CASE. I WOULD LIKE THE PATIENT TO START USING OXYCODONE TO SEE IF THAT AIDS IN HIS PAIN RELIEF. I HAVE A LONG CONVERSATION WITH THE PATIENT AND HIS IN THE USE OF NARCOTICS. THE PATIENT WILL FOLLOW UP IN 1 WEEK TO SEE HOW THE MEDICATION HAS HELPED HIM. INSTRUCTIONS WERE GIVEN, QUESTIONS WERE ANSWERED, PATIENT REPORTS UNDERSTANDING AND AGREES WITH THE PLAN. I, BLADIMIR LYNCH, DOCUMENTED THE ABOVE INFORMATION ACTING A SCRIBE FOR DR. KINCAID. I HAVE REVIEWED THE ABOVE DOCUMENT, WRITTEN BY BLADIMIR ORDONEZIBHerbert AND I VERIFY THAT IT IS ACCURATE. OTHERS START OXYCODONE HCL TABLET, 5 MG, 1 TABLET NEEDED, ORALLY, DAILY FOR PAIN, 7 DAY(S), 7, REFILLS 0 PROCEDURE CODES FA211 ESTABILISHED PATIENT [facility] CHARGE G8427 CURRENT MEDS W/DOSAGES DOCUMENTED G8730 PAIN ASSESS POS TOOL F/U PLAN DOC DISPOSITION & COMMUNICATION FOLLOW UP 1 WEEK ELECTRONICALLY SIGNED BY MATTHEW KINCAID MD, MD ON 12/06/2018 AT 10:32 AM EST DISCLAIMER : THIS IS A VISIT SUMMARY EXTRACTED FROM THE [employer] CHART. IT IS NOT A COPY OF THE [employer] PROGRESS NOTE. MTDD
== END ==
LOC: M PAIN 13:30
PROVIDERS: ATTEND Anesthesiology
DX: M96.1 Postlaminectomy syndrome, not elsewhere classified (principal); M51.16 Intervertebral disc disorders with radiculopathy, lumbar region; K21.9 Gastro-esophageal reflux disease without esophagitis; Z79.82 Long term (current) use of aspirin; Z79.899 Other long term (current) drug therapy; Z88.6 Allergy status to analgesic agent; Z88.8 Allergy status to other drugs, medicaments and biological substances; Z87.891 Personal history of nicotine dependence

== ENCOUNTER → 2018-11-27 | Outpatient (CLI) | payer MEDICARE ==
--- NOTE | 2018-12-15 00:52 | ECWPNPC ---
PATIENT NAME: MERA DACOSTA : 1935 GENDER: MALE VISIT DATE: 11/27/2018 DISCHARGE DATE: 11/27/18 1225 VISIT LOCKED DATE TIME: PHYSICIAN: MATTHEW KINCAID MD RESOURCE: MATTHEW KINCAID MD REASON FOR APPOINTMENT 1. FIT IN FRIDAY PER DR Dior HISTORY OF PRESENT ILLNESS HISTORY OF PRESENT ILLNESS: PAIN THE PATIENT DESCRIBES THE PAIN... 83 YEAR OLD MALE PATIENT WITH A HISTORY OF CHRONIC LOW BACK PAIN. THE PATIENT DESCRIBES THE PAIN ACHING AND CONTINUOUS WITH A PAIN SCORE OF 5-8/10 DEPENDING ON PHYSICAL ACTIVITY AND MEDICATION USE. THE PATIENT RECENTLY STARTING USING OXYCODONE TO AID IN PAIN RELIEF AND REPORTS THAT IT HAS BEEN HELPING. THE PATIENT DENIES ANY ADVERSE SIDE EFFECTS FROM THE MEDICATION. PATIENT DENIES UNEXPLAINABLE WEIGHT LOSS, FEVER, CHILLS, NEW CHANGES ON HIS URINARY OR BOWEL CONTROL. FALL RISK SCREENING: SCREENING :NO FALLS IN THE PAST YEAR CURRENT MEDICATIONS TAKING OXYCODONE HCL 5 MG TABLET 1 TABLET NEEDED ORALLY DAILY FOR PAIN TAKING TYLENOL 500 MGS 2 TAB ORAL FOUR TIMES DAILY NEEDED TAKING TAMSULOSIN HCL 0.4 MG CAPSULE EXTENDED RELEASE 24 HOUR 2 CAPSULES 30 MINUTES AFTER THE SAME MEAL EACH DAY ORALLY ONCE A DAY TAKING ASPIR-81 81 MG TABLET DELAYED RELEASE 1 TABLET ORALLY ONCE A DAY TAKING OMEPRAZOLE 40 MG CAPSULE DELAYED RELEASE 1 CAPSULE ORALLY ONCE A DAY TAKING CETIRIZINE HCL 10 MG TABLET 1 TABLET ORALLY ONCE A DAY, NOTES: HELD THIS WEEK TAKING ONE DAILY COMPLETE FOR MEN - TABLET 1 TAB ORALLY DAILY TAKING CITRACAL CALCIUM+D 1 TAB ORALLY BID TAKING FISH OIL 1200 MG CAPSULE 1 CAPSULE ORALLY BID MEDICATION LIST REVIEWED AND RECONCILED WITH THE PATIENT PAST MEDICAL HISTORY BPH ESOPHAGEAL REFLUX LOW BACK PAIN ALLERGIES CEPHALEXIN: "RED LIKE A BEET ALL OVER": ALLERGY IBUPROFEN: GI BLEED: SIDE EFFECTS SURGICAL HISTORY LEFT CAROTID ENDARTERECTOMY 2003 LUMBAR FUSION L3-4 09/2016 RIGHT PARTIAL KNEE 2004 LEFT PARTIAL KNEE 2004 PROSTATE SURGERY--SEEDS IMPLANTED 2003 CATARAC SURGERY--BILAT 05/2014,06/2014 INGUINAL HERNIA REPAIR 1992 CIRCUMCISION 1956 BASIL CELL CANCER REMOVAL 2017 FAMILY HISTORY FATHER: 75 YRS, DIAGNOSED WITH CANCER MOTHER: 69 YRS 2 SON(S) - HEALTHY. FATHER-COLON CA112/07/17 NIKKI BROWN RN. SOCIAL HISTORY GENERAL: TOBACCO USE ARE YOU A:FORMER SMOKER HOW LONG HAS IT BEEN SINCE YOU LAST SMOKED? QUIT 1967 ALCOHOL SCREENING DID YOU HAVE A DRINK CONTAINING ALCOHOL IN THE PAST YEAR?YES HOW OFTEN DID YOU HAVE SIX OR MORE DRINKS ON ONE OCCASION IN THE PAST YEAR?NEVER (0 POINTS) HOW MANY DRINKS DID YOU HAVE ON A TYPICAL DAY WHEN YOU WERE DRINKING IN THE PAST YEAR?1 OR 2 (0 POINTS) HOW OFTEN DID YOU HAVE A DRINK CONTAINING ALCOHOL IN THE PAST YEAR?TWO TO FOUR TIMES A MONTH (2 POINTS) POINTS2 INTERPRETATIONNEGATIVE RECREATIONAL DRUG USE DRUG USE?NO CAFFEINE CAFFEINE USE?NO SIKH [id number] TAOIST LANGUAGE LANGUAGES SPOKEN:[place] LEARNING BARRIERS / SPECIAL NEEDS HEARING IMPAIRED?YES VISION IMPAIRED?YES COGNITIVELY IMPAIRED?NO :HEARING AIDES BILATERAL :CORRECTIVE LENSES READINESS TO LEARN?YES LEARNING PREFERENCES?YES :BOOKLETS, HANDOUTS LEARNING CAPABILITIES PRESENT?YES EMOTIONAL BARRIERS?NO SPECIAL DEVICES?NO CHAINSTITCH SEAT JOINER NEEDED?NO DOMESTIC VIOLENCE DO YOU FEEL SAFE IN YOUR ENVIRONMENT?YES 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 EXERCISE: NO REGULAR EXERCISE. MARITAL STATUS: . OTHERS AT HOME: SPOUSE, CHILD. PAIN CLINIC PFS, CLERGY, PUBLIC HEALTH REFERRALS PFS REFERRAL NEEDED?NO CLERGY REFERRAL NEEDED?NO PUBLIC HEALTH REFERRAL NEEDED?NO WAS THE PROVIDER NOTIFIED OF ANY PERTINENT INFO?YES N/A HAS THE PATIENT BEEN EDUCATED REGARDING HIS/HER PLAN OF CARE?YES HAS THE PATIENT BEEN EDUCATED REGARDING PAIN, THE RISK FOR PAIN, THE IMPORTANCE OF EFFECTIVE PAIN MANAGEMENT, AND THE PAIN ASSESSMENT PROCESS?YES ADVANCE DIRECTIVE ADVANCE DIRECTIVE DISCUSSED WITH PATIENT:YES HCP- , [facility] [phone] REVIEWED 02/19/18 133REVIEWED 04/21/18 1500 BV05/18/18 1220 REVIEWED WITH PT. AD10/19/18 REVIEWED WITH PT 1057 BV REVIEWED WITH PATIENT 11/27/18 1151 JS. HOSPITALIZATION/MAJOR DIAGNOSTIC PROCEDURE FOR SURGERIES RECTAL BLEEDING DUE TO DIVERTICULITIS 09/2017 REVIEW OF SYSTEMS REVIEWED BY: PROVIDER: MATTHEW KINCAID MD . CONSTITUTIONAL: ANY CHANGE IN YOUR MEDICAL CONDITION? NO . CHILLS NO . FEVER NO . INFECTION: DO YOU HAVE NEW INFECTIONS? NO . DO YOU HAVE HISTORY OF MRSA? NO . MUSCULOSKELETAL: ANY NEW PATTERNS OF PAIN OR NUMBNESS? YES, STATES IMPROVEMENT IN PAIN SINCE STARTING THE OXYCODONE, ALSO IMPROVEMENT IN ABILITY TO WALK . GASTROENTEROLOGY: ANY NEW CHANGE IN BOWEL CONTROL? NO . GENITOURINARY: ANY NEW CHANGE IN BLADDER CONTROL? NO . IS THERE A CHANCE YOU COULD BE ? NO . HEMATOLOGY/LYMPH: DO YOU TAKE ANY BLOOD THINNERS? (FOR EXAMPLE- COUMADIN, PLAVIX, AGGRENOX, PLATEL, PRADAXA, OR XARELTO) NO . WHEN WAS YOUR LAST DOSE? DATE: TIME: . NEUROLOGY: HAVE YOU FALLEN IN THE PAST 6 MONTHS? YES, STATES FALL PRIOR TO LAST VISIT, DISCUSSED AT PREVIOUS VISIT . ANY NEW EXTREMITY NUMBNESS OR WEAKNESS? NO . CARDIOLOGY: DO YOU HAVE A PACEMAKER OR DEFIBRILLATOR? NO . RESPIRATORY: HAVE YOU BEEN SICK IN THE PAST WEEK? NO . FEVER NO . FLU LIKE SYMPTOMS? NO . COUGH NO . INTEGUMENTARY: DO YOU HAVE ANY RASHES OR OPEN SORES? NO . ALLERGIC/IMMUNO: ARE YOU ALLERGIC TO SHELLFISH OR IV DYE? NO . ANY NEW ALLERGIES? NO . PSYCHIATRIC: DO YOU HAVE THOUGHTS OF HURTING YOURSELF OR SOMEONE ELSE? NO . ARE YOU ABUSED, NEGLECTED, OR IN AN UNSAFE ENVIRONMENT? NO . ENDOCRINOLOGY: ARE YOU DIABETIC? NO . OTHER: DO YOU NEED ANY PRESCRIPTIONS? NO . IF YES, PLEASE LIST: ____ . ANY NEW PROBLEMS WITH YOUR MEDICATIONS? NO . WHEN DID YOU LAST EAT? ____ . WHEN DID YOU LAST DRINK? ____ . WHAT DID YOU LAST DRINK? ____ . NAME OF PERSON DRIVING YOU HOME? ____ . DO YOU HAVE ANY OTHER QUESTIONS OR CONCERNS NO . VITAL SIGNS WT 178.2 LBS, HT 68", BMI 27.09 INDEX, BP 123/63 MM HG, HR 73 /MIN, RR 18 /MIN, TEMP 97.5 F, OXYGEN SAT % 97%, SAFE IN ENV? (Y/N) YES, NA INITIALS AW 1144, REVIEWED BY: REI. EXAMINATION GENERAL EXAMINATION: PATIENT IS ALERT O X 3 AND COOPERATIVE. TENDERNESS OVER THE LOW BACK AREA. PATIENT HAS LESS DIFFICULTIES STANDING THAN IN HIS PREVIOUS VISIT. ASSESSMENTS LUMBAR POST-LAMINECTOMY SYNDROME - M96.1 (PRIMARY) TREATMENT LUMBAR POST-LAMINECTOMY SYNDROME CLINICAL NOTES: WE DISCUSSED SEVERAL ISSUES WITH MRS. DACOSTA'S PAIN MANAGEMENT CASE. THE PATIENT WILL CONTINUE USING THE OXYCODONE NEEDED. ISTOP _[id number] WAS REVIEWED. I WILL GIVE THE PATIENT 20 TABLETS FOR A MONTH AND HE WILL CUT THEM IN HALF WHEN HE USES THEM IF NEEDED. WE DISCUSSED THE RISKS OF USING NARCOTICS INCLUDING TOLERANCE AND ADDICTION. THE PATIENT VERBALIZED UNDERSTANDING AND WILL ONLY USE THE MEDICATION NEEDED. THE PATIENT WILL FOLLOW UP IN 1 MONTH. INSTRUCTIONS WERE GIVEN, QUESTIONS WERE ANSWERED, PATIENT REPORTS UNDERSTANDING AND AGREES WITH THE PLAN. I, BLADIMIR LYNCH, DOCUMENTED THE ABOVE INFORMATION ACTING A SCRIBE FOR DR. KINCAID. I HAVE REVIEWED THE ABOVE DOCUMENT, WRITTEN BY BLADIMIR ORDONEZIBHerbert AND I VERIFY THAT IT IS ACCURATE. OTHERS REFILL OXYCODONE HCL TABLET, 5 MG, 1 TABLET NEEDED, ORALLY, DAILY FOR PAIN, 30 DAY(S), 20, REFILLS 0 PROCEDURE CODES FA211 ESTABILISHED PATIENT [facility]ACILITY CHARGE G8427 CURRENT MEDS W/DOSAGES DOCUMENTED G8730 PAIN ASSESS POS TOOL F/U PLAN DOC DISPOSITION & COMMUNICATION FOLLOW UP 1 MONTH (REASON: LOW BACK) ELECTRONICALLY SIGNED BY MATTHEW KINCAID MD, ON 12/14/2018 AT 02:25 PM EST DISCLAIMER : THIS IS A VISIT SUMMARY EXTRACTED FROM THE [employer] CHART. IT IS NOT A COPY OF THE [employer] PROGRESS NOTE. DARRIN
== END ==
LOC: M PAIN 11:30
PROVIDERS: ATTEND Anesthesiology
DX: M96.1 Postlaminectomy syndrome, not elsewhere classified (principal); K21.9 Gastro-esophageal reflux disease without esophagitis; Z79.82 Long term (current) use of aspirin; Z79.899 Other long term (current) drug therapy; Z88.6 Allergy status to analgesic agent; Z88.8 Allergy status to other drugs, medicaments and biological substances; Z86.79 Personal history of other diseases of the circulatory system; Z87.891 Personal history of nicotine dependence

== ENCOUNTER → 2019-02-22 | Outpatient (CLI) | payer MEDICARE ==
--- NOTE | 2019-03-11 00:55 | ECWPNPC ---
PATIENT NAME: MERA DACOSTA : 1935 GENDER: MALE VISIT DATE: 02/22/2019 DISCHARGE DATE: 02/22/19 1256 VISIT LOCKED DATE TIME: PHYSICIAN: MATTHEW KINCAID MD RESOURCE: MATTHEW KINCAID MD REASON FOR APPOINTMENT 1. BACK PAIN HISTORY OF PRESENT ILLNESS HISTORY OF PRESENT ILLNESS: PAIN THE PATIENT DESCRIBES THE PAIN... 83 YEAR OLD MALE PATIENT WITH A HISTORY OF CHRONIC LOW BACK PAIN. THE PATIENT DESCRIBES THE PAIN ACHING AND SHARP WITH A PAIN SCORE OF 8-10/10 DEPENDING ON MEDICATION USE AND PHYSICAL ACTIVITY. PATIENT STATES TAKING HALF A TABLET OF OXYCODONE NEEDED HELPS WITH PAIN AND ALLOWS HIM TO PERFORM ACTIVITIES. THE PATIENT SAYS HE IS VERY CAREFUL, USES THE MEDICATION WITH CARE, AND NEEDS LESS THAN 20 TABLETS PER 2 MONTHS. THE PATIENT IS INTERESTED IN A DCS TRIAL. PATIENT DENIES UNEXPLAINABLE WEIGHT LOSS, FEVER, CHILLS, NEW CHANGES ON HIS URINARY OR BOWEL CONTROL. FALL RISK SCREENING: SCREENING :NO FALLS REPORTED IN THE LAST YEAR CURRENT MEDICATIONS TAKING OXYCODONE HCL 5 MG TABLET 1 TABLET NEEDED ORALLY DAILY FOR PAIN TAKING TYLENOL 500 MGS 2 TAB ORAL FOUR TIMES DAILY NEEDED TAKING TAMSULOSIN HCL 0.4 MG CAPSULE EXTENDED RELEASE 24 HOUR 2 CAPSULES 30 MINUTES AFTER THE SAME MEAL EACH DAY ORALLY ONCE A DAY TAKING ASPIR-81 81 MG TABLET DELAYED RELEASE 1 TABLET ORALLY ONCE A DAY TAKING OMEPRAZOLE 40 MG CAPSULE DELAYED RELEASE 1 CAPSULE ORALLY ONCE A DAY TAKING CETIRIZINE HCL 10 MG TABLET 1 TABLET ORALLY ONCE A DAY, NOTES: HELD THIS WEEK TAKING ONE DAILY COMPLETE FOR MEN - TABLET 1 TAB ORALLY DAILY TAKING CITRACAL CALCIUM+D 1 TAB ORALLY BID TAKING FISH OIL 1200 MG CAPSULE 1 CAPSULE ORALLY BID MEDICATION LIST REVIEWED AND RECONCILED WITH THE PATIENT PAST MEDICAL HISTORY BPH ESOPHAGEAL REFLUX LOW BACK PAIN ALLERGIES CEPHALEXIN: "RED LIKE A BEET ALL OVER" - ALLERGY IBUPROFEN: GI BLEED - SIDE EFFECTS SURGICAL HISTORY LEFT CAROTID ENDARTERECTOMY 2003 LUMBAR FUSION L3-4 09/2016 RIGHT PARTIAL KNEE 2003 LEFT PARTIAL KNEE 2004 PROSTATE SURGERY--SEEDS IMPLANTED 2003 CATARAC SURGERY--BILAT 05/2014,06/2014 INGUINAL HERNIA REPAIR 1992 CIRCUMCISION 1956 BASIL CELL CANCER REMOVAL 2017 FAMILY HISTORY FATHER: 75 YRS, DIAGNOSED WITH CANCER MOTHER: 69 YRS 2 SON(S) - HEALTHY. FATHER-COLON CA\\N11\\/21\\/18 NIKKI BROWN RN. SOCIAL HISTORY GENERAL: TOBACCO USE ARE YOU A:FORMER SMOKER HOW LONG HAS IT BEEN SINCE YOU LAST SMOKED? QUIT 1966 LATEX QUESTIONNAIRE LATEX ALLERGY : HAVE YOU EVER DEVELOPED ANY TYPE OF REACTION AFTER HANDLING LATEX PRODUCTS SUCH RUBBER GLOVES, CONDOMS, DIAPHRAGMS, BALLOONS, SOCKS, OR UNDERWEAR?NO LATEX ALLERGY : HAVE YOU EVER DEVELOPED ANY TYPE OF REACTION DURING OR AFTER DENTAL APPOINTMENT, VAGINAL/RECTAL EXAMINATION, SURGICAL PROCEDURE, OR ANY OTHER EXPOSURE?NO LATEX RISK : HAVE YOU EVER HAD ANY DIFFICULTY BREATHING OR HIVES AFTER EATING OR HANDLING ANY FRUITS, OR VEGETABLES; SUCH KIWI, BANANAS, STONE FRUITS, OR CHESTNUTSNO LATEX RISK : DO YOU HAVE A PREVIOUS PERSONAL HISTORY OF MORE THAN NINE SURGERIES, SPINA BIFIDA, OR REPEATED CATHERTIZATIONS? NO LATEX RISK : ARE YOU FREQUENTLY EXPOSED TO LATEX PRODUCTS IN YOUR OCCUPATION?NO DATE ASKED : 02/22/2019 ALCOHOL SCREENING DID YOU HAVE A DRINK CONTAINING ALCOHOL IN THE PAST YEAR?YES HOW OFTEN DID YOU HAVE A DRINK CONTAINING ALCOHOL IN THE PAST YEAR?TWO TO FOUR TIMES A MONTH (2 POINTS) HOW MANY DRINKS DID YOU HAVE ON A TYPICAL DAY WHEN YOU WERE DRINKING IN THE PAST YEAR?1 OR 2 (0 POINTS) HOW OFTEN DID YOU HAVE SIX OR MORE DRINKS ON ONE OCCASION IN THE PAST YEAR?NEVER (0 POINTS) POINTS2 INTERPRETATIONNEGATIVE RECREATIONAL DRUG USE DRUG USE?NO CAFFEINE CAFFEINE USE?NO GNOSTICIST [id number] GNOSTICIST LANGUAGE LANGUAGES SPOKEN:CHADIAN LEARNING BARRIERS / SPECIAL NEEDS HEARING IMPAIRED?YES :HEARING AIDES BILATERAL VISION IMPAIRED?YES :CORRECTIVE LENSES COGNITIVELY IMPAIRED?NO READINESS TO LEARN?YES LEARNING PREFERENCES?YES :BOOKLETS, HANDOUTS LEARNING CAPABILITIES PRESENT?YES EMOTIONAL BARRIERS?NO SPECIAL DEVICES?NO 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 EXERCISE: NO REGULAR EXERCISE. MARITAL STATUS: . OTHERS AT HOME: SPOUSE, CHILD. PAIN CLINIC PFS, CLERGY, PUBLIC HEALTH REFERRALS PFS REFERRAL NEEDED?NO CLERGY REFERRAL NEEDED?NO PUBLIC HEALTH REFERRAL NEEDED?NO WAS THE PROVIDER NOTIFIED OF ANY PERTINENT INFO?YES N/A HAS THE PATIENT BEEN EDUCATED REGARDING HIS/HER PLAN OF CARE?YES HAS THE PATIENT BEEN EDUCATED REGARDING PAIN, THE RISK FOR PAIN, THE IMPORTANCE OF EFFECTIVE PAIN MANAGEMENT, AND THE PAIN ASSESSMENT PROCESS?YES ADVANCE DIRECTIVE ADVANCE DIRECTIVE DISCUSSED WITH PATIENT:YES HCP- , CHUCHO [phone] REVIEWED 02/19/18 133REVIEWED 04/21/18 1500 BV05/18/18 1220 REVIEWED WITH PT. AD10/19/18 REVIEWED WITH PT 1057 BV REVIEWED WITH PATIENT 11/27/18 1151 JS. HOSPITALIZATION/MAJOR DIAGNOSTIC PROCEDURE FOR SURGERIES RECTAL BLEEDING DUE TO DIVERTICULITIS 09/2017 REVIEW OF SYSTEMS REVIEWED BY: PROVIDER: MATTHEW KINCAID MD . CONSTITUTIONAL: ANY CHANGE IN YOUR MEDICAL CONDITION? NO . CHILLS NO . FEVER NO . INFECTION: DO YOU HAVE NEW INFECTIONS? NO . DO YOU HAVE HISTORY OF MRSA? NO . MUSCULOSKELETAL: ANY NEW PATTERNS OF PAIN OR NUMBNESS? NO . GASTROENTEROLOGY: ANY NEW CHANGE IN BOWEL CONTROL? NO . GENITOURINARY: ANY NEW CHANGE IN BLADDER CONTROL? NO . IS THERE A CHANCE YOU COULD BE ? NO . HEMATOLOGY/LYMPH: DO YOU TAKE ANY BLOOD THINNERS? (FOR EXAMPLE- COUMADIN, PLAVIX, AGGRENOX, PLATEL, PRADAXA, OR XARELTO) NO . WHEN WAS YOUR LAST DOSE? DATE: TIME: . NEUROLOGY: HAVE YOU FALLEN IN THE PAST 12 MONTHS? YES, PT STATES WHILE AT [facility], NO REPORT TO ED, RECEIVING THERAPY FOR SHOULDER INJURY. . ANY NEW EXTREMITY NUMBNESS OR WEAKNESS? NO . CARDIOLOGY: DO YOU HAVE A PACEMAKER OR DEFIBRILLATOR? NO . RESPIRATORY: HAVE YOU BEEN SICK IN THE PAST WEEK? NO . FEVER NO . FLU LIKE SYMPTOMS? NO . COUGH NO . INTEGUMENTARY: DO YOU HAVE ANY RASHES OR OPEN SORES? NO . ALLERGIC/IMMUNO: ARE YOU ALLERGIC TO IV DYE? NO . ANY NEW ALLERGIES? NO . PSYCHIATRIC: DO YOU HAVE THOUGHTS OF HURTING YOURSELF OR SOMEONE ELSE? NO . ARE YOU ABUSED, NEGLECTED, OR IN AN UNSAFE ENVIRONMENT? NO . ENDOCRINOLOGY: ARE YOU DIABETIC? NO . OTHER: DO YOU NEED ANY PRESCRIPTIONS? YES, OXYCODONE . IF YES, PLEASE LIST: ____ . ANY NEW PROBLEMS WITH YOUR MEDICATIONS? NO . WHEN DID YOU LAST EAT? ____ . WHEN DID YOU LAST DRINK? ____ . WHAT DID YOU LAST DRINK? ____ . NAME OF PERSON DRIVING YOU HOME? ____ . DO YOU HAVE ANY OTHER QUESTIONS OR CONCERNS NO . VITAL SIGNS WT 167.8 LBS, HT 68", BMI 25.51 INDEX, BP 147/68 MM HG, HR 84 /MIN, RR 18 /MIN, TEMP 97.5 F, OXYGEN SAT % 98%, SAFE IN ENV? (Y/N) Y, NA INITIALS DE 12:06, REVIEWED BY: IVAN. EXAMINATION GENERAL EXAMINATION: PATIENT IS ALERT O X 3 AND COOPERATIVE. MRI OF THE LUMBAR SPINE DONE ON 10/20/2017 SHOWS POST LAMINECTOMY CHANGES AND BULGING DISCS AT MULTIPLE LEVELS. ASSESSMENTS LUMBAR POST-LAMINECTOMY SYNDROME - M96.1 (PRIMARY) LUMBAR RADICULOPATHY - M54.16 TREATMENT LUMBAR POST-LAMINECTOMY SYNDROME CLINICAL NOTES: WE DISCUSSED SEVERAL ISSUES WITH MR. DACOSTA PAIN MANAGEMENT CASE. THE PATIENT IS INTERESTED IN A DCS TRIAL WITH JACOB IN THE FUTURE. THE PATIENT WILL CONTINUE USING THE OXYCODONE NEEDED. ISTOP #: [id number] WAS REVIEWED. THE PATIENT WAS ENCOURAGED TO BRING FAMILY MEMBERS WITH HIM TO HIS APPOINTMENTS TO BE INVOLVED IN DISCUSSING HIS CARE. THE PATIENT WILL FOLLOW UP IN 2 MONTHS. INSTRUCTIONS WERE GIVEN, QUESTIONS WERE ANSWERED, PATIENT REPORTS UNDERSTANDING AND AGREES WITH THE PLAN. I, LINO GREGORY, DOCUMENTED THE ABOVE INFORMATION ACTING A SCRIBE FOR DR. KINCAID. I HAVE REVIEWED THE ABOVE DOCUMENT, WRITTEN BY LINO MATHEWS AND I VERIFY THAT IT IS ACCURATE. . OTHERS REFILL OXYCODONE HCL TABLET, 5 MG, 1 TABLET NEEDED, ORALLY, DAILY FOR PAIN, 30 DAY(S), 20, REFILLS 0 PROCEDURE CODES FA211 ESTABILISHED PATIENT [facility] FACILITY CHARGE G8427 CURRENT MEDS W/DOSAGES DOCUMENTED G8730 PAIN ASSESS POS TOOL F/U PLAN DOC DISPOSITION & COMMUNICATION FOLLOW UP 2 MONTHS (REASON: F/U MEDS & POSSIBLE DCS TRIAL) ELECTRONICALLY SIGNED BY MATTHEW KINCAID MD, ON 03/09/2019 AT 05:32 PM EDT DISCLAIMER : THIS IS A VISIT SUMMARY EXTRACTED FROM THE [employer] CHART. IT IS NOT A COPY OF THE [employer] PROGRESS NOTE. MTDD
== END ==
LOC: M PAIN 12:00
PROVIDERS: ATTEND Anesthesiology
DX: M96.1 Postlaminectomy syndrome, not elsewhere classified (principal); M54.16 Radiculopathy, lumbar region; K21.9 Gastro-esophageal reflux disease without esophagitis; Z79.82 Long term (current) use of aspirin; Z79.899 Other long term (current) drug therapy; Z88.8 Allergy status to other drugs, medicaments and biological substances; Z88.6 Allergy status to analgesic agent; Z87.891 Personal history of nicotine dependence

== ENCOUNTER → 2019-04-26 | Outpatient (CLI) | payer MEDICARE ==
--- NOTE | 2019-05-08 23:48 | ECWPNPC ---
PATIENT NAME: MERA DACOSTA : 1935 GENDER: MALE VISIT DATE: 04/26/2019 DISCHARGE DATE: 04/26/19 1044 VISIT LOCKED DATE TIME: PHYSICIAN: MATTHEW KINCAID MD RESOURCE: MATTHEW KINCAID MD REASON FOR APPOINTMENT 1. BACK PAIN HISTORY OF PRESENT ILLNESS HISTORY OF PRESENT ILLNESS: PAIN THE PATIENT DESCRIBES THE PAIN... 84 YEAR OLD MALE PATIENT WITH A HISTORY OF CHRONIC LOW BACK PAIN. THE PATIENT DESCRIBES THE PAIN ACHING AND CONTINUOUS WITH A PAIN SCORE OF 7-10/10 DEPENDING ON PHYSICAL ACTIVITY. THE PATIENT SAYS THE PAIN IS WORSE DURING THE DAY AND HE HAS BEEN EXPERIENCING THIS PAIN FOR MANY YEARS. THE PATIENT SAYS HE USES 2 500 MG TYLENOLS EVERY 6 HOURS UP TO 6 PER DAY. THE PATIENT SAYS HE STOPPED USING OXYCODONE SINCE IT NO LONGER HELPED HIM. THE PATIENT MENTIONS HE WILL BE TRYING CBD OIL TO SEE IF IT HELPS WITH HIS PAIN. PATIENT DENIES UNEXPLAINABLE WEIGHT LOSS, FEVER, CHILLS, NEW CHANGES ON HIS URINARY OR BOWEL CONTROL. FALL RISK SCREENING: SCREENING :NO FALLS REPORTED IN THE LAST YEAR CURRENT MEDICATIONS TAKING TYLENOL 500 MGS 2 TAB ORAL FOUR TIMES DAILY NEEDED TAKING TAMSULOSIN HCL 0.4 MG CAPSULE EXTENDED RELEASE 24 HOUR 2 CAPSULES 30 MINUTES AFTER THE SAME MEAL EACH DAY ORALLY ONCE A DAY TAKING ASPIR-81 81 MG TABLET DELAYED RELEASE 1 TABLET ORALLY ONCE A DAY TAKING OMEPRAZOLE 40 MG CAPSULE DELAYED RELEASE 1 CAPSULE ORALLY ONCE A DAY TAKING CETIRIZINE HCL 10 MG TABLET 1 TABLET ORALLY ONCE A DAY, NOTES: HELD THIS WEEK TAKING ONE DAILY COMPLETE FOR MEN - TABLET 1 TAB ORALLY DAILY TAKING CITRACAL CALCIUM+D 1 TAB ORALLY BID TAKING FISH OIL 1200 MG CAPSULE 1 CAPSULE ORALLY BID NOT-TAKING OXYCODONE HCL 5 MG TABLET 1 TABLET NEEDED ORALLY DAILY FOR PAIN MEDICATION LIST REVIEWED AND RECONCILED WITH THE PATIENT PAST MEDICAL HISTORY BPH ESOPHAGEAL REFLUX LOW BACK PAIN ALLERGIES CEPHALEXIN: "RED LIKE A BEET ALL OVER" - ALLERGY IBUPROFEN: GI BLEED - SIDE EFFECTS SURGICAL HISTORY LEFT CAROTID ENDARTERECTOMY 2003 LUMBAR FUSION L3-4 09/2016 RIGHT PARTIAL KNEE 2003 LEFT PARTIAL KNEE 2004 PROSTATE SURGERY--SEEDS IMPLANTED 2003 CATARAC SURGERY--BILAT 05/2014,06/2014 INGUINAL HERNIA REPAIR 1992 CIRCUMCISION 1956 BASIL CELL CANCER REMOVAL 2017 FAMILY HISTORY FATHER: 75 YRS, DIAGNOSED WITH CANCER MOTHER: 69 YRS 2 SON(S) - HEALTHY. FATHER-COLON CA\\N11\\\\ NIKKI BROWN RN. SOCIAL HISTORY GENERAL: TOBACCO USE ARE YOU A:FORMER SMOKER HOW LONG HAS IT BEEN SINCE YOU LAST SMOKED? QUIT 1967 OTHERS AT HOME: SPOUSE, CHILD. DIET: REGULAR. LANGUAGE LANGUAGES SPOKEN:[place] DOMESTIC VIOLENCE DO YOU FEEL SAFE IN YOUR ENVIRONMENT?YES RECREATIONAL DRUG USE DRUG USE?NO EXERCISE: NO REGULAR EXERCISE. 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?NO PAIN CLINIC PFS, CLERGY, PUBLIC HEALTH REFERRALS PFS REFERRAL NEEDED?NO CLERGY REFERRAL NEEDED?NO PUBLIC HEALTH REFERRAL NEEDED?NO WAS THE PROVIDER NOTIFIED OF ANY PERTINENT INFO?YES N/A HAS THE PATIENT BEEN EDUCATED REGARDING HIS/HER PLAN OF CARE?YES HAS THE PATIENT BEEN EDUCATED REGARDING PAIN, THE RISK FOR PAIN, THE IMPORTANCE OF EFFECTIVE PAIN MANAGEMENT, AND THE PAIN ASSESSMENT PROCESS?YES LATEX QUESTIONNAIRE LATEX ALLERGY : HAVE YOU EVER DEVELOPED ANY TYPE OF REACTION AFTER HANDLING LATEX PRODUCTS SUCH RUBBER GLOVES, CONDOMS, DIAPHRAGMS, BALLOONS, SOCKS, OR UNDERWEAR?NO LATEX ALLERGY : HAVE YOU EVER DEVELOPED ANY TYPE OF REACTION DURING OR AFTER DENTAL APPOINTMENT, VAGINAL/RECTAL EXAMINATION, SURGICAL PROCEDURE, OR ANY OTHER EXPOSURE?NO LATEX RISK : HAVE YOU EVER HAD ANY DIFFICULTY BREATHING OR HIVES AFTER EATING OR HANDLING ANY FRUITS, OR VEGETABLES; SUCH KIWI, BANANAS, STONE FRUITS, OR CHESTNUTSNO LATEX RISK : DO YOU HAVE A PREVIOUS PERSONAL HISTORY OF MORE THAN NINE SURGERIES, SPINA BIFIDA, OR REPEATED CATHERTIZATIONS? NO LATEX RISK : ARE YOU FREQUENTLY EXPOSED TO LATEX PRODUCTS IN YOUR OCCUPATION?NO DATE ASKED : 02/22/2019 CAFFEINE CAFFEINE USE?NO ADVANCE DIRECTIVE ADVANCE DIRECTIVE DISCUSSED WITH PATIENT:YES HCP- , CHUCHO [phone] [place] [id number] MANDAEN MARITAL STATUS: . ALCOHOL SCREENING DID YOU HAVE A DRINK CONTAINING ALCOHOL IN THE PAST YEAR?YES HOW OFTEN DID YOU HAVE A DRINK CONTAINING ALCOHOL IN THE PAST YEAR?TWO TO FOUR TIMES A MONTH (2 POINTS) HOW MANY DRINKS DID YOU HAVE ON A TYPICAL DAY WHEN YOU WERE DRINKING IN THE PAST YEAR?1 OR 2 (0 POINTS) HOW OFTEN DID YOU HAVE SIX OR MORE DRINKS ON ONE OCCASION IN THE PAST YEAR?NEVER (0 POINTS) POINTS2 INTERPRETATIONNEGATIVE OCCUPATION: [employer]. REVIEWED 02/19/18 133REVIEWED 04/21/18 1500 BV05/18/18 1220 REVIEWED WITH PT. AD10/19/18 REVIEWED WITH PT 1057 BV REVIEWED WITH PATIENT 11/27/18 1151 JS. HOSPITALIZATION/MAJOR DIAGNOSTIC PROCEDURE FOR SURGERIES RECTAL BLEEDING DUE TO DIVERTICULITIS 09/2017 REVIEW OF SYSTEMS REVIEWED BY: PROVIDER: MATTHEW KINCAID MD . CONSTITUTIONAL: ANY CHANGE IN YOUR MEDICAL CONDITION? NO . CHILLS NO . FEVER NO . INFECTION: DO YOU HAVE NEW INFECTIONS? NO . DO YOU HAVE HISTORY OF MRSA? NO . MUSCULOSKELETAL: ANY NEW PATTERNS OF PAIN OR NUMBNESS? NO . GASTROENTEROLOGY: ANY NEW CHANGE IN BOWEL CONTROL? NO . GENITOURINARY: ANY NEW CHANGE IN BLADDER CONTROL? NO . IS THERE A CHANCE YOU COULD BE ? NO . HEMATOLOGY/LYMPH: DO YOU TAKE ANY BLOOD THINNERS? (FOR EXAMPLE- COUMADIN, PLAVIX, AGGRENOX, PLATEL, PRADAXA, OR XARELTO) NO . WHEN WAS YOUR LAST DOSE? DATE: TIME: . NEUROLOGY: HAVE YOU FALLEN IN THE PAST 12 MONTHS? YES, PRIOR TO LAST VISIT . ANY NEW EXTREMITY NUMBNESS OR WEAKNESS? NO . CARDIOLOGY: DO YOU HAVE A PACEMAKER OR DEFIBRILLATOR? NO . RESPIRATORY: HAVE YOU BEEN SICK IN THE PAST WEEK? NO . FEVER NO . FLU LIKE SYMPTOMS? NO . COUGH NO . INTEGUMENTARY: DO YOU HAVE ANY RASHES OR OPEN SORES? NO . ALLERGIC/IMMUNO: ARE YOU ALLERGIC TO IV DYE? NO . ANY NEW ALLERGIES? NO . PSYCHIATRIC: DO YOU HAVE THOUGHTS OF HURTING YOURSELF OR SOMEONE ELSE? NO . ARE YOU ABUSED, NEGLECTED, OR IN AN UNSAFE ENVIRONMENT? NO . ENDOCRINOLOGY: ARE YOU DIABETIC? NO . OTHER: DO YOU NEED ANY PRESCRIPTIONS? NO . IF YES, PLEASE LIST: ____ . ANY NEW PROBLEMS WITH YOUR MEDICATIONS? NO . WHEN DID YOU LAST EAT? ____ . WHEN DID YOU LAST DRINK? ____ . WHAT DID YOU LAST DRINK? ____ . NAME OF PERSON DRIVING YOU HOME? ____ . DO YOU HAVE ANY OTHER QUESTIONS OR CONCERNS NO . VITAL SIGNS WT 170 LBS, HT 68", BMI 25.85 INDEX, BP 176/81 MM HG, HR 81 /MIN, RR 18 /MIN, TEMP 97.2 F, OXYGEN SAT % 97%, NA INITIALS AW 0918, REVIEWED BY: EM. EXAMINATION GENERAL EXAMINATION: PATIENT IS ALERT O X 3 AND COOPERATIVE. PATIENT HAS DIFFICULTY STANDING UP. TENDERNESS OVER THE RIGHT AND LEFT LOW BACK AREA. PATIENT IS WEARING A BACK SUPPORT BRACE. MRI OF THE LUMBAR SPINE DONE ON 10/20/2017 SHOWS FACET ARTHROPATHY CHANGES AND FUSION AT L3-4 LEVEL. 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 DACOSTA' PAIN MANAGEMENT CASE. I HAD A MEDICATION MANAGEMENT DISCUSSION WITH THE PATIENT TODAY. I WILL START THE PATIENT ON HYDROCODONE 5-300 MG 15 TABLETS TO BE TAKEN NEEDED. I ADVISED THE PATIENT TO USE LESS TYLENOL TO AVOID LIVER AND GASTRO SIDE EFFECTS. THE PATIENT AGREED TO USE ONE LESS TYLENOL DOSE DAILY. THE PATIENT SAYS HE WILL BE TRYING CBD OIL TO SEE IF IT WILL HELP WITH HIS PAIN BEFORE TRYING HYDROCODONE. I DISCUSSED WITH THE PATIENT ABOUT BEING A GOOD CANDIDATE FOR COOL RADIOFREQUENCY AND DCS TRIAL. I AM REQUESTING FOR AN INTERFERENTIAL TENS UNIT FOR THE PATIENT TO HELP WITH HIS PAIN. THE PATIENT WILL FOLLOW UP IN 1 MONTH. INSTRUCTIONS WERE GIVEN, QUESTIONS WERE ANSWERED, PATIENT REPORTS UNDERSTANDING AND AGREES WITH THE PLAN. I, LINO GREGORY, DOCUMENTED THE ABOVE INFORMATION ACTING A SCRIBE FOR DR. KINCAID. I HAVE REVIEWED THE ABOVE DOCUMENT, WRITTEN BY LINO ORDONEZIBHerbert AND I VERIFY THAT IT IS ACCURATE. . OTHERS START HYDROCODONE-ACETAMINOPHEN TABLET, 5-300 MG, 1 TABLET NEEDED, ORALLY FOR PAIN, DAILY MDD1, 30 DAYS, 15, REFILLS 0 PREVENTIVE MEDICINE PAIN CLINIC TEACHING: MEDICATIONS PRITNED AND REVIEWED INFORMATION ON NEW MEDICATION, HYDROCODONE, WITH PATIENT. PATIENT VERBALIZED AN UNDERSTANDING. ABDIRIZAK TOMPKINS 04/26/2019 10:44:11 AM > . PROCEDURE CODES FA211 ESTABILISHED PATIENT [facility] CHARGE G8427 CURRENT MEDS W/DOSAGES DOCUMENTED G8730 PAIN ASSESS POS TOOL F/U PLAN DOC DISPOSITION & COMMUNICATION FOLLOW UP 4 WEEKS (REASON: MEDS, PEND COOL RF) ELECTRONICALLY SIGNED BY MATTHEW KINCAID MD, MD ON 05/08/2019 AT 04:54 PM EDT DISCLAIMER : THIS IS A VISIT SUMMARY EXTRACTED FROM THE [employer] CHART. IT IS NOT A COPY OF THE [employer] PROGRESS NOTE. MTDD
== END ==
LOC: M PAIN 09:15
PROVIDERS: ATTEND Anesthesiology
DX: M47.816 Spondylosis without myelopathy or radiculopathy, lumbar region (principal); M47.817 Spondylosis without myelopathy or radiculopathy, lumbosacral region; M96.1 Postlaminectomy syndrome, not elsewhere classified; G89.29 Other chronic pain; Z79.82 Long term (current) use of aspirin; Z88.8 Allergy status to other drugs, medicaments and biological substances; Z87.891 Personal history of nicotine dependence

== ENCOUNTER → 2019-06-07 | Outpatient (CLI) | payer MEDICARE ==
--- NOTE | 2019-06-16 00:23 | ECWPNPC ---
PATIENT NAME: MERA DACOSTA : 1935 GENDER: MALE VISIT DATE: 06/07/2019 DISCHARGE DATE: 06/07/19 1604 VISIT LOCKED DATE TIME: PHYSICIAN: MATTHEW KINCAID MD RESOURCE: MATTHEW KINCAID MD REASON FOR APPOINTMENT 1. 4 WEEKS HISTORY OF PRESENT ILLNESS HISTORY OF PRESENT ILLNESS: PAIN THE PATIENT DESCRIBES THE PAIN... 84 YEAR OLD MALE PATIENT WITH A HISTORY OF CHRONIC LOW BACK PAIN. THE PATIENT DESCRIBES THE PAIN ACHING, INTERMITTENT, AND DAILY WITH A PAIN SCORE OF 7-10/10 DEPENDING ON PHYSICAL ACTIVITY. THE PATIENT SAYS THE PAIN IS MAINLY IN HIS LOWER BACK ON BOTH SIDES, BUT WITH MORE PAIN LOCATED ON HIS LEFT SIDE. THE PATIENT STARTED HYDROCODONE-ACETAMINOPHEN 5-300 MG AT HIS LAST VISIT, WHICH HE SAYS DID NOT HELP WITH RELIEVING HIS PAIN. THE PATIENT SAYS HE HAS USED OXYCODONE IN THE PAST THAT HELPED HIM FOR A WHILE, BUT HE HAD STOPPED USING THEM. PATIENT DENIES UNEXPLAINABLE WEIGHT LOSS, FEVER, CHILLS, NEW CHANGES ON HIS URINARY OR BOWEL CONTROL. FALL RISK SCREENING: SCREENING :NO FALLS REPORTED IN THE LAST YEAR CURRENT MEDICATIONS TAKING TYLENOL 500 MGS 2 TAB ORAL FOUR TIMES DAILY NEEDED TAKING TAMSULOSIN HCL 0.4 MG CAPSULE EXTENDED RELEASE 24 HOUR 2 CAPSULES 30 MINUTES AFTER THE SAME MEAL EACH DAY ORALLY ONCE A DAY TAKING ASPIR-81 81 MG TABLET DELAYED RELEASE 1 TABLET ORALLY ONCE A DAY TAKING OMEPRAZOLE 40 MG CAPSULE DELAYED RELEASE 1 CAPSULE ORALLY ONCE A DAY TAKING CETIRIZINE HCL 10 MG TABLET 1 TABLET ORALLY ONCE A DAY, NOTES: HELD THIS WEEK TAKING ONE DAILY COMPLETE FOR MEN - TABLET 1 TAB ORALLY DAILY TAKING CITRACAL CALCIUM+D 1 TAB ORALLY BID TAKING FISH OIL 1200 MG CAPSULE 1 CAPSULE ORALLY BID NOT-TAKING HYDROCODONE-ACETAMINOPHEN 5-300 MG TABLET 1 TABLET NEEDED ORALLY FOR PAIN DAILY MDD1, NOTES: NOT TAKING NOT-TAKING OXYCODONE HCL 5 MG TABLET 1 TABLET NEEDED ORALLY DAILY FOR PAIN MEDICATION LIST REVIEWED AND RECONCILED WITH THE PATIENT PAST MEDICAL HISTORY BPH ESOPHAGEAL REFLUX LOW BACK PAIN ALLERGIES CEPHALEXIN: "RED LIKE A BEET ALL OVER" - ALLERGY IBUPROFEN: GI BLEED - SIDE EFFECTS SURGICAL HISTORY LEFT CAROTID ENDARTERECTOMY 2003 LUMBAR FUSION L3-4 09/2016 RIGHT PARTIAL KNEE 2003 LEFT PARTIAL KNEE 2004 PROSTATE SURGERY--SEEDS IMPLANTED 2003 CATARAC SURGERY--BILAT 05/2014,06/2014 INGUINAL HERNIA REPAIR 1992 CIRCUMCISION 1956 BASIL CELL CANCER REMOVAL 2017 FAMILY HISTORY FATHER: 75 YRS, DIAGNOSED WITH CANCER MOTHER: 69 YRS 2 SON(S) - HEALTHY. FATHER-COLON CA\\N11\\\\ NIKKI BROWN RN. SOCIAL HISTORY GENERAL: TOBACCO USE ARE YOU A:FORMER SMOKER HOW LONG HAS IT BEEN SINCE YOU LAST SMOKED? QUIT 1967 OTHERS AT HOME: SPOUSE, CHILD. DIET: REGULAR. LANGUAGE LANGUAGES SPOKEN:[place] DOMESTIC VIOLENCE DO YOU FEEL SAFE IN YOUR ENVIRONMENT?YES RECREATIONAL DRUG USE DRUG USE?NO EXERCISE: NO REGULAR EXERCISE. 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 NEEDED?NO PAIN CLINIC PFS, CLERGY, PUBLIC HEALTH REFERRALS PFS REFERRAL NEEDED?NO CLERGY REFERRAL NEEDED?NO PUBLIC HEALTH REFERRAL NEEDED?NO WAS THE PROVIDER NOTIFIED OF ANY PERTINENT INFO?YES N/A HAS THE PATIENT BEEN EDUCATED REGARDING HIS/HER PLAN OF CARE?YES HAS THE PATIENT BEEN EDUCATED REGARDING PAIN, THE RISK FOR PAIN, THE IMPORTANCE OF EFFECTIVE PAIN MANAGEMENT, AND THE PAIN ASSESSMENT PROCESS?YES LATEX QUESTIONNAIRE LATEX ALLERGY : HAVE YOU EVER DEVELOPED ANY TYPE OF REACTION AFTER HANDLING LATEX PRODUCTS SUCH RUBBER GLOVES, CONDOMS, DIAPHRAGMS, BALLOONS, SOCKS, OR UNDERWEAR?NO LATEX ALLERGY : HAVE YOU EVER DEVELOPED ANY TYPE OF REACTION DURING OR AFTER DENTAL APPOINTMENT, VAGINAL/RECTAL EXAMINATION, SURGICAL PROCEDURE, OR ANY OTHER EXPOSURE?NO LATEX RISK : HAVE YOU EVER HAD ANY DIFFICULTY BREATHING OR HIVES AFTER EATING OR HANDLING ANY FRUITS, OR VEGETABLES; SUCH KIWI, BANANAS, STONE FRUITS, OR CHESTNUTSNO LATEX RISK : DO YOU HAVE A PREVIOUS PERSONAL HISTORY OF MORE THAN NINE SURGERIES, SPINA BIFIDA, OR REPEATED CATHERIZATIONS? NO LATEX RISK : ARE YOU FREQUENTLY EXPOSED TO LATEX PRODUCTS IN YOUR OCCUPATION?NO DATE ASKED : 02/22/2019 CAFFEINE CAFFEINE USE?NO ADVANCE DIRECTIVE ADVANCE DIRECTIVE DISCUSSED WITH PATIENT:YES HCP- , CHUCHO [phone] EVANGELICAL [id number] ALEVISM MARITAL STATUS: . ALCOHOL SCREENING DID YOU HAVE A DRINK CONTAINING ALCOHOL IN THE PAST YEAR?YES HOW OFTEN DID YOU HAVE A DRINK CONTAINING ALCOHOL IN THE PAST YEAR?TWO TO FOUR TIMES A MONTH (2 POINTS) HOW MANY DRINKS DID YOU HAVE ON A TYPICAL DAY WHEN YOU WERE DRINKING IN THE PAST YEAR?1 OR 2 (0 POINTS) HOW OFTEN DID YOU HAVE SIX OR MORE DRINKS ON ONE OCCASION IN THE PAST YEAR?NEVER (0 POINTS) POINTS2 INTERPRETATIONNEGATIVE OCCUPATION: [employer]. REVIEWED 02/19/18 133REVIEWED 04/21/18 1500 BV05/18/18 1220 REVIEWED WITH PT. AD10/19/18 REVIEWED WITH PT 1057 BV REVIEWED WITH PATIENT 11/27/18 1151 JS. HOSPITALIZATION/MAJOR DIAGNOSTIC PROCEDURE FOR SURGERIES RECTAL BLEEDING DUE TO DIVERTICULITIS 09/2017 REVIEW OF SYSTEMS REVIEWED BY: PROVIDER: MATTHEW KINCAID MD . CONSTITUTIONAL: ANY CHANGE IN YOUR MEDICAL CONDITION? NO . CHILLS NO . FEVER NO . INFECTION: DO YOU HAVE NEW INFECTIONS? NO . DO YOU HAVE HISTORY OF MRSA? NO . MUSCULOSKELETAL: ANY NEW PATTERNS OF PAIN OR NUMBNESS? NO . GASTROENTEROLOGY: ANY NEW CHANGE IN BOWEL CONTROL? NO . GENITOURINARY: ANY NEW CHANGE IN BLADDER CONTROL? NO . IS THERE A CHANCE YOU COULD BE ? NO . HEMATOLOGY/LYMPH: DO YOU TAKE ANY BLOOD THINNERS? (FOR EXAMPLE- COUMADIN, PLAVIX, AGGRENOX, PLATEL, PRADAXA, OR XARELTO) NO . WHEN WAS YOUR LAST DOSE? DATE: TIME: . NEUROLOGY: HAVE YOU FALLEN IN THE PAST 12 MONTHS? NO . ANY NEW EXTREMITY NUMBNESS OR WEAKNESS? NO . CARDIOLOGY: DO YOU HAVE A PACEMAKER OR DEFIBRILLATOR? NO . RESPIRATORY: HAVE YOU BEEN SICK IN THE PAST WEEK? NO . FEVER NO . FLU LIKE SYMPTOMS? NO . COUGH NO . INTEGUMENTARY: DO YOU HAVE ANY RASHES OR OPEN SORES? NO . ALLERGIC/IMMUNO: ARE YOU ALLERGIC TO IV DYE? NO . ANY NEW ALLERGIES? NO . PSYCHIATRIC: DO YOU HAVE THOUGHTS OF HURTING YOURSELF OR SOMEONE ELSE? NO . ARE YOU ABUSED, NEGLECTED, OR IN AN UNSAFE ENVIRONMENT? NO . ENDOCRINOLOGY: ARE YOU DIABETIC? NO . OTHER: DO YOU NEED ANY PRESCRIPTIONS? NO . IF YES, PLEASE LIST: ____ . ANY NEW PROBLEMS WITH YOUR MEDICATIONS? NO . WHEN DID YOU LAST EAT? ____ . WHEN DID YOU LAST DRINK? ____ . WHAT DID YOU LAST DRINK? ____ . NAME OF PERSON DRIVING YOU HOME? ____ . DO YOU HAVE ANY OTHER QUESTIONS OR CONCERNS NO . VITAL SIGNS WT 172.4 LBS, HT 68", BMI 26.21 INDEX, BP 158/74 MM HG, HR 66 /MIN, RR 18 /MIN, TEMP 97.3 F, OXYGEN SAT % 98%, NA INITIALS SC 15:01. EXAMINATION GENERAL EXAMINATION: PATIENT IS ALERT O X 3 AND COOPERATIVE. TENDERNESS IN THE LOW BACK ON BOTH SIDES. PRESENCE OF BANDS OF TISSUE AND TRIGGER POINTS WITH RESTRICTION OF MOVEMENT OF THE LUMBAR SPINE. ASSESSMENTS MYALGIA, OTHER SITE - M79.18 (PRIMARY) LUMBAR POST-LAMINECTOMY SYNDROME - M96.1 TREATMENT MYALGIA, OTHER SITE CLINICAL NOTES: WE DISCUSSED SEVERAL ISSUES WITH MR. DACOSTA' PAIN MANAGEMENT CASE. I WILL START THE PATIENT ON ACETAMINOPHEN-CODEINE TABLET, 300-30 MG 10 TABLETS FOR A WEEK TO SEE IF IT HELPS WITH HIS LOW BACK PAIN. THE PATIENT WAS ADVISED TO CALL IF IT HELPS AND I WILL SEND A MONTH SUPPLY OF THE MEDICATION FOR HIM. THE PATIENT UNDERSTANDS THAT THE PLAN IS TO CONTINUE TRYING DIFFERENT MEDICATIONS TO FIND SOMETHING THAT WORKS FOR HIM. THE PATIENT WILL FOLLOW UP IN ONE MONTH. INSTRUCTIONS WERE GIVEN, QUESTIONS WERE ANSWERED, PATIENT REPORTS UNDERSTANDING AND AGREES WITH THE PLAN. I, LINO GREGORY, DOCUMENTED THE ABOVE INFORMATION ACTING A SCRIBE FOR DR. KINCAID. I HAVE REVIEWED THE ABOVE DOCUMENT, WRITTEN BY LINO ORDONEZIBHerbert AND I VERIFY THAT IT IS ACCURATE. . OTHERS START ACETAMINOPHEN-CODEINE TABLET, 300-30 MG, 1 TABLET NEEDED, ORALLY FOR PAIN, EVERY 8 HRS MDD 2, 7 DAYS, 12, REFILLS 0 PREVENTIVE MEDICINE PAIN CLINIC TEACHING: STRETCHES DISCUSSED WITH THE PT THE USE OF HEAT /ICE FOR AN INTERVATION FOR HIS PAIN. MEDICATIONS TYLENOL #3 EDUCATION DISCUSSED AND PRINTED MATERIALS GIVEN TO PT. PROCEDURE CODES FA211 ESTABILISHED PATIENT [facility] CHARGE G8427 CURRENT MEDS W/DOSAGES DOCUMENTED G8730 PAIN ASSESS POS TOOL F/U PLAN DOC DISPOSITION & COMMUNICATION FOLLOW UP 4 WEEKS (REASON: MEDS) ELECTRONICALLY SIGNED BY MATTHEW KINCAID MD, ON 06/15/2019 AT 03:13 PM EDT DISCLAIMER : THIS IS A VISIT SUMMARY EXTRACTED FROM THE [employer] CHART. IT IS NOT A COPY OF THE [employer] PROGRESS NOTE. MTDD
== END ==
LOC: M PAIN 15:00
PROVIDERS: ATTEND Anesthesiology
DX: M79.18 Myalgia, other site (principal); M96.1 Postlaminectomy syndrome, not elsewhere classified; N40.0 Benign prostatic hyperplasia without lower urinary tract symptoms; K21.9 Gastro-esophageal reflux disease without esophagitis; M54.5 Low back pain; Z87.891 Personal history of nicotine dependence; Z98.1 Arthrodesis status; Z98.41 Cataract extraction status, right eye; Z98.42 Cataract extraction status, left eye; Z96.653 Presence of artificial knee joint, bilateral; Z85.828 Personal history of other malignant neoplasm of skin; Z79.82 Long term (current) use of aspirin; Z79.899 Other long term (current) drug therapy; Z88.6 Allergy status to analgesic agent; Z88.1 Allergy status to other antibiotic agents

== ENCOUNTER → 2019-08-09 | Outpatient (CLI) | payer MEDICARE ==
[~2019-08-09] MED LIST changes: -OMEP40CA2 PO; +OMEP40CA97 PO
--- NOTE | 2019-08-22 23:36 | ECWPNPC ---
PATIENT NAME: MERA DACOSTA : 1935 GENDER: MALE VISIT DATE: 08/09/2019 DISCHARGE DATE: 08/09/19 1313 VISIT LOCKED DATE TIME: PHYSICIAN: MATTHEW KINCAID MD RESOURCE: MATTHEW KINCAID MD REASON FOR APPOINTMENT 1. MED MANAGEMENT HISTORY OF PRESENT ILLNESS HISTORY OF PRESENT ILLNESS: PAIN THE PATIENT DESCRIBES THE PAIN... 84 YEAR OLD MALE PATIENT WITH A HISTORY OF CHRONIC LOW BACK PAIN. THE PATIENT DESCRIBES THE PAIN ACHING, SORE, TENDER AND CONTINUOUS WITH A PAIN SCORE OF 8-10/10 DEPENDING ON PHYSICAL ACTIVITY. THE PATIENT TRIED TAKING TYLENOL WITH CODEINE IN THE PAST BUT STATES IT WAS NOT WORKING. THE PATIENT WAS THEN PRESCRIBED HYDROCODONE 5 MG AT HIS LAST VISIT BUT STATES THAT IS NOT STRONG ENOUGH TO HELP WITH THE PAIN., PATIENT DENIES UNEXPLAINABLE WEIGHT LOSS, FEVER, CHILLS, NEW CHANGES ON HIS URINARY OR BOWEL CONTROL. FALL RISK SCREENING: SCREENING :NO FALLS REPORTED IN THE LAST YEAR CURRENT MEDICATIONS TAKING TYLENOL 500 MGS 2 TAB ORAL FOUR TIMES DAILY NEEDED TAKING TAMSULOSIN HCL 0.4 MG CAPSULE EXTENDED RELEASE 24 HOUR 2 CAPSULES 30 MINUTES AFTER THE SAME MEAL EACH DAY ORALLY ONCE A DAY TAKING ASPIR-81 81 MG TABLET DELAYED RELEASE 1 TABLET ORALLY ONCE A DAY TAKING OMEPRAZOLE 40 MG CAPSULE DELAYED RELEASE 1 CAPSULE ORALLY ONCE A DAY TAKING CETIRIZINE HCL 10 MG TABLET 1 TABLET ORALLY ONCE A DAY, NOTES: HELD THIS WEEK TAKING ONE DAILY COMPLETE FOR MEN - TABLET 1 TAB ORALLY DAILY TAKING CITRACAL CALCIUM+D 1 TAB ORALLY BID TAKING FISH OIL 1200 MG CAPSULE 1 CAPSULE ORALLY BID TAKING ACETAMINOPHEN-CODEINE 300-30 MG TABLET 1 TABLET NEEDED ORALLY FOR PAIN EVERY 8 HRS MDD 2 NOT-TAKING HYDROCODONE-ACETAMINOPHEN 5-300 MG TABLET 1 TABLET NEEDED ORALLY FOR PAIN DAILY MDD1, NOTES: NOT TAKING NOT-TAKING OXYCODONE HCL 5 MG TABLET 1 TABLET NEEDED ORALLY DAILY FOR PAIN MEDICATION LIST REVIEWED AND RECONCILED WITH THE PATIENT PAST MEDICAL HISTORY BPH ESOPHAGEAL REFLUX LOW BACK PAIN ALLERGIES CEPHALEXIN: "RED LIKE A BEET ALL OVER" - ALLERGY IBUPROFEN: GI BLEED - SIDE EFFECTS SURGICAL HISTORY LEFT CAROTID ENDARTERECTOMY 2003 LUMBAR FUSION L3-4 09/2016 RIGHT PARTIAL KNEE 2003 LEFT PARTIAL KNEE 2004 PROSTATE SURGERY--SEEDS IMPLANTED 2003 CATARAC SURGERY--BILAT 05/2014,06/2014 INGUINAL HERNIA REPAIR 1993 CIRCUMCISION 1956 BASIL CELL CANCER REMOVAL 2018 FAMILY HISTORY FATHER: 75 YRS, DIAGNOSED WITH OTHER MALIGNANT NEOPLASM OF UNSPECIFIED SITE MOTHER: 69 YRS 2 SON(S) - HEALTHY. FATHER-COLON CA\\N11\\\\ NIKKI BROWN RN. SOCIAL HISTORY GENERAL: TOBACCO USE ARE YOU A:FORMER SMOKER HOW LONG HAS IT BEEN SINCE YOU LAST SMOKED? QUIT 1967 OTHERS AT HOME: SPOUSE, CHILD. DIET: REGULAR. LANGUAGE LANGUAGES SPOKEN:[place]ET[place]ESE DOMESTIC VIOLENCE DO YOU FEEL SAFE IN YOUR ENVIRONMENT?YES RECREATIONAL DRUG USE DRUG USE?NO EXERCISE: NO REGULAR EXERCISE. LEARNING BARRIERS / SPECIAL NEEDS HEARING IMPAIRED?YES VISION IMPAIRED?YES COGNITIVELY IMPAIRED?NO :HEARING AIDES BILATERAL :CORRECTIVE LENSES READINESS TO LEARN?YES LEARNING PREFERENCES?YES :BOOKLETS, HANDOUTS LEARNING CAPABILITIES PRESENT?YES EMOTIONAL BARRIERS?NO SPECIAL DEVICES?NO PARKING ANALYST NEEDED?NO PAIN CLINIC PFS, CLERGY, PUBLIC HEALTH REFERRALS PFS REFERRAL NEEDED?NO CLERGY REFERRAL NEEDED?NO PUBLIC HEALTH REFERRAL NEEDED?NO WAS THE PROVIDER NOTIFIED OF ANY PERTINENT INFO?YES N/A HAS THE PATIENT BEEN EDUCATED REGARDING HIS/HER PLAN OF CARE?YES HAS THE PATIENT BEEN EDUCATED REGARDING PAIN, THE RISK FOR PAIN, THE IMPORTANCE OF EFFECTIVE PAIN MANAGEMENT, AND THE PAIN ASSESSMENT PROCESS?YES LATEX QUESTIONNAIRE LATEX ALLERGY : HAVE YOU EVER DEVELOPED ANY TYPE OF REACTION AFTER HANDLING LATEX PRODUCTS SUCH RUBBER GLOVES, CONDOMS, DIAPHRAGMS, BALLOONS, SOCKS, OR UNDERWEAR?NO LATEX ALLERGY : HAVE YOU EVER DEVELOPED ANY TYPE OF REACTION DURING OR AFTER DENTAL APPOINTMENT, VAGINAL/RECTAL EXAMINATION, SURGICAL PROCEDURE, OR ANY OTHER EXPOSURE?NO DATE ASKED : 02/22/2019 LATEX RISK : HAVE YOU EVER HAD ANY DIFFICULTY BREATHING OR HIVES AFTER EATING OR HANDLING ANY FRUITS, OR VEGETABLES; SUCH KIWI, BANANAS, STONE FRUITS, OR CHESTNUTSNO LATEX RISK : DO YOU HAVE A PREVIOUS PERSONAL HISTORY OF MORE THAN NINE SURGERIES, SPINA BIFIDA, OR REPEATED CATHERIZATIONS? NO LATEX RISK : ARE YOU FREQUENTLY EXPOSED TO LATEX PRODUCTS IN YOUR OCCUPATION?NO CAFFEINE CAFFEINE USE?NO ADVANCE DIRECTIVE ADVANCE DIRECTIVE DISCUSSED WITH PATIENT:YES HCP- , CHUCHO [phone] ISLAM [id number] EPISCOPAL MARITAL STATUS: . ALCOHOL SCREENING DID YOU HAVE A DRINK CONTAINING ALCOHOL IN THE PAST YEAR?YES HOW OFTEN DID YOU HAVE SIX OR MORE DRINKS ON ONE OCCASION IN THE PAST YEAR?NEVER (0 POINTS) HOW MANY DRINKS DID YOU HAVE ON A TYPICAL DAY WHEN YOU WERE DRINKING IN THE PAST YEAR?1 OR 2 (0 POINTS) HOW OFTEN DID YOU HAVE A DRINK CONTAINING ALCOHOL IN THE PAST YEAR?TWO TO FOUR TIMES A MONTH (2 POINTS) POINTS2 INTERPRETATIONNEGATIVE OCCUPATION: [employer]. REVIEWED 02/19/18 133REVIEWED 04/21/18 1500 BV05/18/18 1220 REVIEWED WITH PT. AD10/19/18 REVIEWED WITH PT 1057 BV REVIEWED WITH PATIENT 11/27/18 1151 JS. HOSPITALIZATION/MAJOR DIAGNOSTIC PROCEDURE FOR SURGERIES RECTAL BLEEDING DUE TO DIVERTICULITIS 09/2017 REVIEW OF SYSTEMS REVIEWED BY: PROVIDER: MATTHEW KINCAID MD . CONSTITUTIONAL: ANY CHANGE IN YOUR MEDICAL CONDITION? NO . CHILLS NO . FEVER NO . INFECTION: DO YOU HAVE NEW INFECTIONS? YES PT REPORTS AN EAR INFECTION LEFT EAR, GOING TO SEE ENT . DO YOU HAVE HISTORY OF MRSA? NO . MUSCULOSKELETAL: ANY NEW PATTERNS OF PAIN OR NUMBNESS? NO . GASTROENTEROLOGY: ANY NEW CHANGE IN BOWEL CONTROL? NO . GENITOURINARY: ANY NEW CHANGE IN BLADDER CONTROL? NO . IS THERE A CHANCE YOU COULD BE ? NO . HEMATOLOGY/LYMPH: DO YOU TAKE ANY BLOOD THINNERS? (FOR EXAMPLE- COUMADIN, PLAVIX, AGGRENOX, PLATEL, PRADAXA, OR XARELTO) NO . WHEN WAS YOUR LAST DOSE? DATE: TIME: . NEUROLOGY: HAVE YOU FALLEN IN THE PAST 12 MONTHS? NO . ANY NEW EXTREMITY NUMBNESS OR WEAKNESS? NO . CARDIOLOGY: DO YOU HAVE A PACEMAKER OR DEFIBRILLATOR? NO . RESPIRATORY: HAVE YOU BEEN SICK IN THE PAST WEEK? NO . FEVER NO . FLU LIKE SYMPTOMS? NO . COUGH NO . INTEGUMENTARY: DO YOU HAVE ANY RASHES OR OPEN SORES? NO . ALLERGIC/IMMUNO: ARE YOU ALLERGIC TO IV DYE? NO . ANY NEW ALLERGIES? NO . PSYCHIATRIC: DO YOU HAVE THOUGHTS OF HURTING YOURSELF OR SOMEONE ELSE? NO . ARE YOU ABUSED, NEGLECTED, OR IN AN UNSAFE ENVIRONMENT? NO . ENDOCRINOLOGY: ARE YOU DIABETIC? NO . OTHER: DO YOU NEED ANY PRESCRIPTIONS? NO . IF YES, PLEASE LIST: ____ . ANY NEW PROBLEMS WITH YOUR MEDICATIONS? NO . WHEN DID YOU LAST EAT? ____ . WHEN DID YOU LAST DRINK? ____ . WHAT DID YOU LAST DRINK? ____ . NAME OF PERSON DRIVING YOU HOME? ____ . DO YOU HAVE ANY OTHER QUESTIONS OR CONCERNS NO . VITAL SIGNS WT 177.2 LBS, HT 68", BMI 26.94 INDEX, BP 140/78 MM HG, HR 94 /MIN, RR 18 /MIN, TEMP 97.4 F, OXYGEN SAT % 98%, SAFE IN ENV? (Y/N) YES, NA INITIALS AW 1153, REVIEWED BY: KEILY. EXAMINATION GENERAL EXAMINATION: PATIENT IS ALERT O X 3 AND COOPERATIVE. TENDERNESS TO LOWER BACK. CT OF THE LUMBOSACRAL SPINE DONE 06/05/2018 SHOWS DISC FUSION AT L3-4. ASSESSMENTS SPONDYLOSIS OF LUMBAR REGION WITHOUT MYELOPATHY OR RADICULOPATHY - M47.816 (PRIMARY) TREATMENT SPONDYLOSIS OF LUMBAR REGION WITHOUT MYELOPATHY OR RADICULOPATHY CLINICAL NOTES: WE DISCUSSED SEVERAL ISSUES WITH MR. DACOSTA' PAIN MANAGEMENT CASE. I WILL START THE PATIENT ON HYDROCODONE 7.5-325 MG, UP TO 2 TABLETS PER DAY NEEDED FOR PAIN. PATIENT MADE AWARE OF SIDE EFFECTS AND TO USE IN A SAFE ENVIRONMENT. I AM WAITING TO GET THE MACHINE ON COOL RADIO FREQUENCY BEFORE ANY INTERVENTIONS ARE PLANNED. PATIENT WILL CONTINUE USING MEDICATIONS TO AID WITH PAIN RELIEF UNTIL INTERVENTION. WE DISCUSSED THE POSSIBILITY OF HAVING A URINE TOXICOLOGY DONE IN THE FUTURE. PATIENT TO FOLLOW UP WITH NURSE PRACTITIONER IN 6 WEEKS. INSTRUCTIONS WERE GIVEN, QUESTIONS WERE ANSWERED, PATIENT REPORTS UNDERSTANDING AND AGREES WITH THE PLAN. I, LAVINIA DURÁN, DOCUMENTED THE ABOVE INFORMATION ACTING A SCRIBE FOR DR. KINCAID. I HAVE REVIEWED THE ABOVE DOCUMENT, WRITTEN BY LAVINIA MATHEWS AND I VERIFY THAT IT IS ACCURATE. OTHERS START HYDROCODONE-ACETAMINOPHEN TABLET, 7.5-325 MG, 1 TABLET NEEDED, ORALLY FOR PAIN, EVERY 12 HRS MDD2, 30 DAYS, 60, REFILLS 0 PREVENTIVE MEDICINE PAIN CLINIC TEACHING: MEDITATION EDUCATION TEACHING COMPLETED WITH PT AND PRINTED MATERIALS GIVEN FOR HYDROCODONE. PT ACKNOWLEDGED UNDERSTANDING. THE PATIENT HAS BEEN EDUCATED REGARDING HIS/HER PLAN OF CARE : DISCUSSED TREATMENT PLAN WITH PT AND WRITTEN MATERIALS GIVEN PROCEDURE CODES FA211 ESTABILISHED PATIENT [facility] CHARGE G8427 CURRENT MEDS W/DOSAGES DOCUMENTED G8730 PAIN ASSESS POS TOOL F/U PLAN DOC DISPOSITION & COMMUNICATION FOLLOW UP 6 WEEKS ELECTRONICALLY SIGNED BY MATTHEW KINCAID MD, MD ON 08/22/2019 AT 04:34 PM EDT DISCLAIMER : THIS IS A VISIT SUMMARY EXTRACTED FROM THE [employer] CHART. IT IS NOT A COPY OF THE [employer] PROGRESS NOTE. DARRIN
== END ==
LOC: M PAIN 11:45
PROVIDERS: ATTEND Anesthesiology
DX: M47.816 Spondylosis without myelopathy or radiculopathy, lumbar region (principal); G89.29 Other chronic pain; K21.9 Gastro-esophageal reflux disease without esophagitis; Z87.891 Personal history of nicotine dependence; Z88.1 Allergy status to other antibiotic agents; Z88.6 Allergy status to analgesic agent; Z79.82 Long term (current) use of aspirin; Z79.899 Other long term (current) drug therapy

== ENCOUNTER → 2019-09-01 | Outpatient (REF) | payer MEDICARE | LOC: M LAB REF 13:55 | PROVIDERS: ATTEND Otolaryngology | DX: H60.312 Diffuse otitis externa, left ear (principal) ==

== ENCOUNTER → 2019-09-15 | Outpatient (CLI) | payer MEDICARE ==
--- NOTE | 2019-09-17 01:51 | ECWPNPC ---
PATIENT NAME: MERA DACOSTA : 1935 GENDER: MALE VISIT DATE: 09/15/2019 DISCHARGE DATE: 09/15/19 1016 VISIT LOCKED DATE TIME: PHYSICIAN: SEAN RUBIO RESOURCE: SEAN RUBIO REASON FOR APPOINTMENT 1. 6 WKS NEW MED HISTORY OF PRESENT ILLNESS HISTORY OF PRESENT ILLNESS: PAIN THE PATIENT DESCRIBES THE PAIN... 84-YEAR-OLD MALE IN FOR CHRONIC PAIN FOLLOW-UP. HE RATES HIS PAIN AT A 10 OUT OF 10 AND DESCRIBES IT ACHING. HE WAS STARTED ON HYDROCODONE 7.5 AND FEELS THIS IS BEEN INEFFECTIVE IN HELPING TO MANAGE HIS PAIN. HE WOULD LIKE TO DISCUSS DORSAL COLUMN STIMULATORS. FALL RISK SCREENING: SCREENING :NO FALLS REPORTED IN THE LAST YEAR CURRENT MEDICATIONS TAKING HYDROCODONE-ACETAMINOPHEN 7.5-325 MG TABLET 1 TABLET NEEDED ORALLY FOR PAIN EVERY 12 HRS MDD2 TAKING TYLENOL 500 MGS 2 TAB ORAL FOUR TIMES DAILY NEEDED TAKING TAMSULOSIN HCL 0.4 MG CAPSULE EXTENDED RELEASE 24 HOUR 2 CAPSULES 30 MINUTES AFTER THE SAME MEAL EACH DAY ORALLY ONCE A DAY TAKING ASPIR-81 81 MG TABLET DELAYED RELEASE 1 TABLET ORALLY ONCE A DAY TAKING OMEPRAZOLE 40 MG CAPSULE DELAYED RELEASE 1 CAPSULE ORALLY ONCE A DAY TAKING CETIRIZINE HCL 10 MG TABLET 1 TABLET ORALLY ONCE A DAY TAKING ONE DAILY COMPLETE FOR MEN - TABLET 1 TAB ORALLY DAILY TAKING CITRACAL CALCIUM+D 1 TAB ORALLY BID TAKING FISH OIL 1200 MG CAPSULE 1 CAPSULE ORALLY BID TAKING ACETAMINOPHEN-CODEINE 300-30 MG TABLET 1 TABLET NEEDED ORALLY FOR PAIN EVERY 8 HRS MDD 2 NOT-TAKING HYDROCODONE-ACETAMINOPHEN 5-300 MG TABLET 1 TABLET NEEDED ORALLY FOR PAIN DAILY MDD1, NOTES: NOT TAKING NOT-TAKING OXYCODONE HCL 5 MG TABLET 1 TABLET NEEDED ORALLY DAILY FOR PAIN MEDICATION LIST REVIEWED AND RECONCILED WITH THE PATIENT PAST MEDICAL HISTORY BPH ESOPHAGEAL REFLUX LOW BACK PAIN ALLERGIES CEPHALEXIN: "RED LIKE A BEET ALL OVER" - ALLERGY IBUPROFEN: GI BLEED - SIDE EFFECTS SURGICAL HISTORY LEFT CAROTID ENDARTERECTOMY 2003 LUMBAR FUSION L3-4 09/2016 RIGHT PARTIAL KNEE 2003 LEFT PARTIAL KNEE 2004 PROSTATE SURGERY--SEEDS IMPLANTED 2003 CATARAC SURGERY--BILAT 05/2014,06/2014 INGUINAL HERNIA REPAIR 1992 CIRCUMCISION 1956 BASIL CELL CANCER REMOVAL 2017 FAMILY HISTORY FATHER: 75 YRS, DIAGNOSED WITH OTHER MALIGNANT NEOPLASM OF UNSPECIFIED SITE MOTHER: 69 YRS 2 SON(S) - HEALTHY. FATHER-COLON CA\\N11\\/\\ NIKKI BROWN RN. SOCIAL HISTORY GENERAL: TOBACCO USE ARE YOU A:FORMER SMOKER HOW LONG HAS IT BEEN SINCE YOU LAST SMOKED? QUIT 1967 OTHERS AT HOME: SPOUSE, CHILD. DIET: REGULAR. LANGUAGE LANGUAGES SPOKEN:TAMAZIGHT DOMESTIC VIOLENCE DO YOU FEEL SAFE IN YOUR ENVIRONMENT?YES RECREATIONAL DRUG USE DRUG USE?NO EXERCISE: NO REGULAR EXERCISE. LEARNING BARRIERS / SPECIAL NEEDS HEARING IMPAIRED?YES VISION IMPAIRED?YES COGNITIVELY IMPAIRED?NO :HEARING AIDES BILATERAL :CORRECTIVE LENSES READINESS TO LEARN?YES LEARNING PREFERENCES?YES :BOOKLETS, HANDOUTS LEARNING CAPABILITIES PRESENT?YES EMOTIONAL BARRIERS?NO SPECIAL DEVICES?NO SEPTIC TECHNICIAN NEEDED?NO PAIN CLINIC PFS, CLERGY, PUBLIC HEALTH REFERRALS PFS REFERRAL NEEDED?NO CLERGY REFERRAL NEEDED?NO PUBLIC HEALTH REFERRAL NEEDED?NO WAS THE PROVIDER NOTIFIED OF ANY PERTINENT INFO?YES N/A HAS THE PATIENT BEEN EDUCATED REGARDING HIS/HER PLAN OF CARE?YES HAS THE PATIENT BEEN EDUCATED REGARDING PAIN, THE RISK FOR PAIN, THE IMPORTANCE OF EFFECTIVE PAIN MANAGEMENT, AND THE PAIN ASSESSMENT PROCESS?YES LATEX QUESTIONNAIRE LATEX ALLERGY : HAVE YOU EVER DEVELOPED ANY TYPE OF REACTION AFTER HANDLING LATEX PRODUCTS SUCH RUBBER GLOVES, CONDOMS, DIAPHRAGMS, BALLOONS, SOCKS, OR UNDERWEAR?NO LATEX ALLERGY : HAVE YOU EVER DEVELOPED ANY TYPE OF REACTION DURING OR AFTER DENTAL APPOINTMENT, VAGINAL/RECTAL EXAMINATION, SURGICAL PROCEDURE, OR ANY OTHER EXPOSURE?NO LATEX RISK : HAVE YOU EVER HAD ANY DIFFICULTY BREATHING OR HIVES AFTER EATING OR HANDLING ANY FRUITS, OR VEGETABLES; SUCH KIWI, BANANAS, STONE FRUITS, OR CHESTNUTSNO LATEX RISK : DO YOU HAVE A PREVIOUS PERSONAL HISTORY OF MORE THAN NINE SURGERIES, SPINA BIFIDA, OR REPEATED CATHERIZATIONS? NO LATEX RISK : ARE YOU FREQUENTLY EXPOSED TO LATEX PRODUCTS IN YOUR OCCUPATION?NO DATE ASKED : 02/22/2019 CAFFEINE CAFFEINE USE?NO ADVANCE DIRECTIVE ADVANCE DIRECTIVE DISCUSSED WITH PATIENT:YES HCP- , CHUCHO [phone] SHINTO [id number] HINDUISM MARITAL STATUS: . ALCOHOL SCREENING DID YOU HAVE A DRINK CONTAINING ALCOHOL IN THE PAST YEAR?YES HOW OFTEN DID YOU HAVE SIX OR MORE DRINKS ON ONE OCCASION IN THE PAST YEAR?NEVER (0 POINTS) HOW MANY DRINKS DID YOU HAVE ON A TYPICAL DAY WHEN YOU WERE DRINKING IN THE PAST YEAR?1 OR 2 (0 POINTS) HOW OFTEN DID YOU HAVE A DRINK CONTAINING ALCOHOL IN THE PAST YEAR?TWO TO FOUR TIMES A MONTH (2 POINTS) POINTS2 INTERPRETATIONNEGATIVE OCCUPATION: [employer]. REVIEWED 02/19/18 133REVIEWED 04/21/18 1500 BV05/18/18 1220 REVIEWED WITH PT. AD10/19/18 REVIEWED WITH PT 1057 BV REVIEWED WITH PATIENT 11/27/18 1151 JSREVIEWED WITH PATIENT 09/15/19 0937 JS. HOSPITALIZATION/MAJOR DIAGNOSTIC PROCEDURE FOR SURGERIES RECTAL BLEEDING DUE TO DIVERTICULITIS 09/2017 REVIEW OF SYSTEMS REVIEWED BY: PROVIDER: MADAI CELESTE . CONSTITUTIONAL: ANY CHANGE IN YOUR MEDICAL CONDITION? NO . CHILLS NO . FEVER NO . INFECTION: DO YOU HAVE NEW INFECTIONS? YES, STATES EAR INFECTION ABOUT A MONTH AND HALF AGO, STILL USING EAR DROPS . DO YOU HAVE HISTORY OF MRSA? NO . MUSCULOSKELETAL: ANY NEW PATTERNS OF PAIN OR NUMBNESS? NO . GASTROENTEROLOGY: ANY NEW CHANGE IN BOWEL CONTROL? NO . GENITOURINARY: ANY NEW CHANGE IN BLADDER CONTROL? NO . IS THERE A CHANCE YOU COULD BE ? NO . HEMATOLOGY/LYMPH: DO YOU TAKE ANY BLOOD THINNERS? (FOR EXAMPLE- COUMADIN, PLAVIX, AGGRENOX, PLATEL, PRADAXA, OR XARELTO) NO . WHEN WAS YOUR LAST DOSE? DATE: TIME: . NEUROLOGY: HAVE YOU FALLEN IN THE PAST 12 MONTHS? NO . ANY NEW EXTREMITY NUMBNESS OR WEAKNESS? NO . CARDIOLOGY: DO YOU HAVE A PACEMAKER OR DEFIBRILLATOR? NO . RESPIRATORY: HAVE YOU BEEN SICK IN THE PAST WEEK? NO . FEVER NO . FLU LIKE SYMPTOMS? NO . COUGH NO . INTEGUMENTARY: DO YOU HAVE ANY RASHES OR OPEN SORES? NO . ALLERGIC/IMMUNO: ARE YOU ALLERGIC TO IV DYE? NO . ANY NEW ALLERGIES? NO . PSYCHIATRIC: DO YOU HAVE THOUGHTS OF HURTING YOURSELF OR SOMEONE ELSE? NO . ARE YOU ABUSED, NEGLECTED, OR IN AN UNSAFE ENVIRONMENT? NO . ENDOCRINOLOGY: ARE YOU DIABETIC? NO . OTHER: DO YOU NEED ANY PRESCRIPTIONS? NO . IF YES, PLEASE LIST: ____ . ANY NEW PROBLEMS WITH YOUR MEDICATIONS? NO . WHEN DID YOU LAST EAT? ____ . WHEN DID YOU LAST DRINK? ____ . WHAT DID YOU LAST DRINK? ____ . NAME OF PERSON DRIVING YOU HOME? ____ . DO YOU HAVE ANY OTHER QUESTIONS OR CONCERNS FLU AND 2ND PNEUMONIA VACCINE ABOUT 2 WEEKS AGO . VITAL SIGNS WT 178.4 LBS, HT 68", BMI 27.12 INDEX, BP 178/83 MM HG, REPEAT BP 144/82 MANUAL, HR 68 /MIN, RR 18 /MIN, TEMP 97.2 F, OXYGEN SAT % 98%, SAFE IN ENV? (Y/N) YES, NA INITIALS AW 0930, REVIEWED BY: REI. EXAMINATION GENERAL EXAMINATION: GENERALNO ACUTE DISTRESS, WELL NOURISHED AND HYDRATED. PSYCHAPPROPRIATE MOOD AND AFFECT . LUNGS:CLEAR TO AUSCULTATION BILATERALLY, NO WHEEZES, RHONCHI, RALES. HEART:NO MURMURS, REGULAR RATE AND RHYTHM. ASSESSMENTS SPONDYLOSIS OF LUMBOSACRAL REGION WITHOUT MYELOPATHY OR RADICULOPATHY - M47.817 (PRIMARY) TREATMENT SPONDYLOSIS OF LUMBOSACRAL REGION WITHOUT MYELOPATHY OR RADICULOPATHY CONTINUE HYDROCODONE-ACETAMINOPHEN TABLET, 10-300 MG, 1 TABLET NEEDED, ORALLY, EVERY 12 HRS MDD2, 30 DAYS, 60 CLINICAL NOTES: 84-YEAR-OLD MALE IN FOR CHRONIC PAIN FOLLOW-UP. GIVEN PRESENTING SYMPTOMS AND RESULTS OF PHYSICAL EXAMINATION RECOMMENDED INCREASING NORCO 10/300 EVERY 12 WHEN NECESSARY, DISCUSSED DCS TRIAL, WITH FOLLOW-UP IN ONE MONTH TO DETERMINE EFFICACY TREATMENT. PATIENT HAS EXPRESSED UNDERSTANDING OF AND WAS IN AGREEMENT WITH TREATMENT PLAN. GIVEN TIME TO ASK QUESTIONS AND EXPRESS CONCERNS., ISTOP REGISTRY REVIEWED AND DEMONSTRATES COMPLLIANCE. (REF # [id number] ) BRINGS IN MEDICATIONS WHICH IS APPROPRIATE FOR WHAT WAS DISPENSED. RECENT URINE TOXICOLOGY REVIEWED. NO UNAUTHORIZED MEDICATIONS. NO ILLICIT SUBSTANCES AND PRESCRIBED MEDICATIONS WERE PRESENT. PROCEDURE CODES FA211 ESTABILISHED PATIENT [facility]ILITY CHARGE DISPOSITION & COMMUNICATION FOLLOW UP 4 WEEKS (REASON: MED CHANGE) ELECTRONICALLY SIGNED BY COLUMBA CRUZ ON 09/16/2019 AT 08:23 AM EDT DISCLAIMER : THIS IS A VISIT SUMMARY EXTRACTED FROM THE [employer] CHART. IT IS NOT A COPY OF THE [employer] PROGRESS NOTE. MTDD
== END ==
LOC: M PAIN 09:00
PROVIDERS: ATTEND Family Medicine
DX: M47.817 Spondylosis without myelopathy or radiculopathy, lumbosacral region (principal); N40.0 Benign prostatic hyperplasia without lower urinary tract symptoms; K21.9 Gastro-esophageal reflux disease without esophagitis; Z87.891 Personal history of nicotine dependence; Z79.82 Long term (current) use of aspirin; Z79.891 Long term (current) use of opiate analgesic; Z79.899 Other long term (current) drug therapy; Z88.1 Allergy status to other antibiotic agents; Z88.6 Allergy status to analgesic agent; Z98.1 Arthrodesis status; Z98.41 Cataract extraction status, right eye; Z98.42 Cataract extraction status, left eye; Z85.828 Personal history of other malignant neoplasm of skin

== ENCOUNTER → 2019-11-19 | Outpatient (REF) | payer MEDICARE | LOC: M LAB REF 16:18 | PROVIDERS: ATTEND Physician Assistant Medical | DX: R30.0 Dysuria (principal) ==

== ENCOUNTER → 2019-11-25 | Outpatient (CLI) | payer MEDICARE ==
--- NOTE | 2019-11-30 06:15 | ECWPNPC ---
PATIENT NAME: MERA DACOSTA : 1935 GENDER: MALE VISIT DATE: 11/25/2019 DISCHARGE DATE: 11/25/19 1149 VISIT LOCKED DATE TIME: PHYSICIAN: SEAN RUBIO RESOURCE: SEAN RUBIO REASON FOR APPOINTMENT 1. MED CHANGE HISTORY OF PRESENT ILLNESS HISTORY OF PRESENT ILLNESS: PAIN THE PATIENT DESCRIBES THE PAIN... 84-YEAR-OLD MALE IN FOR CHRONIC PAIN FOLLOW-UP. HE RATES PAIN CURRENTLY AT A 10 OUT OF 10 AND DESCRIBES IT ACHING. HE DISCONTINUED USE OF THE HYDROCODONE HE SAYS IT WAS INEFFECTIVE IN RELIEVING HIS PAIN SYMPTOMS. FALL RISK SCREENING: SCREENING :NO FALLS REPORTED IN THE LAST YEAR CURRENT MEDICATIONS TAKING TYLENOL 500 MGS 2 TAB ORAL FOUR TIMES DAILY NEEDED TAKING TAMSULOSIN HCL 0.4 MG CAPSULE EXTENDED RELEASE 24 HOUR 2 CAPSULES 30 MINUTES AFTER THE SAME MEAL EACH DAY ORALLY ONCE A DAY TAKING ASPIR-81 81 MG TABLET DELAYED RELEASE 1 TABLET ORALLY ONCE A DAY TAKING OMEPRAZOLE 40 MG CAPSULE DELAYED RELEASE 1 CAPSULE ORALLY ONCE A DAY TAKING CETIRIZINE HCL 10 MG TABLET 1 TABLET ORALLY ONCE A DAY TAKING ONE DAILY COMPLETE FOR MEN - TABLET 1 TAB ORALLY DAILY TAKING CITRACAL CALCIUM+D 1 TAB ORALLY BID TAKING FISH OIL 1200 MG CAPSULE 1 CAPSULE ORALLY BID NOT-TAKING HYDROCODONE-ACETAMINOPHEN 5-300 MG TABLET 1 TABLET NEEDED ORALLY FOR PAIN DAILY MDD1, NOTES: NOT TAKING NOT-TAKING OXYCODONE HCL 5 MG TABLET 1 TABLET NEEDED ORALLY DAILY FOR PAIN DISCONTINUED ACETAMINOPHEN-CODEINE 300-30 MG TABLET 1 TABLET NEEDED ORALLY FOR PAIN EVERY 8 HRS MDD 2 DISCONTINUED HYDROCODONE-ACETAMINOPHEN 10-325 MG TABLET 1 TABLET NEEDED ORALLY EVERY 12 HRS MDD2 MEDICATION LIST REVIEWED AND RECONCILED WITH THE PATIENT PAST MEDICAL HISTORY BPH ESOPHAGEAL REFLUX LOW BACK PAIN ALLERGIES CEPHALEXIN: "RED LIKE A BEET ALL OVER" - ALLERGY IBUPROFEN: GI BLEED - SIDE EFFECTS SURGICAL HISTORY LEFT CAROTID ENDARTERECTOMY 2003 LUMBAR FUSION L3-4 09/2016 RIGHT PARTIAL KNEE 2004 LEFT PARTIAL KNEE 2004 PROSTATE SURGERY--SEEDS IMPLANTED 2003 CATARAC SURGERY--BILAT 05/2014,06/2014 INGUINAL HERNIA REPAIR 1992 CIRCUMCISION 1956 BASIL CELL CANCER REMOVAL 2017 FAMILY HISTORY FATHER: 75 YRS, DIAGNOSED WITH OTHER MALIGNANT NEOPLASM OF UNSPECIFIED SITE MOTHER: 69 YRS 2 SON(S) - HEALTHY. FATHER-COLON CA\\N11\\/ NIKKI BROWN RN. SOCIAL HISTORY GENERAL: TOBACCO USE ARE YOU A:FORMER SMOKER HOW LONG HAS IT BEEN SINCE YOU LAST SMOKED? QUIT 1967 OTHERS AT HOME: SPOUSE, CHILD. DIET: REGULAR. LANGUAGE LANGUAGES SPOKEN:UGANDAN DOMESTIC VIOLENCE DO YOU FEEL SAFE IN YOUR ENVIRONMENT?YES RECREATIONAL DRUG USE DRUG USE?NO EXERCISE: NO REGULAR EXERCISE. LEARNING BARRIERS / SPECIAL NEEDS HEARING IMPAIRED?YES VISION IMPAIRED?YES COGNITIVELY IMPAIRED?NO :HEARING AIDES BILATERAL :CORRECTIVE LENSES READINESS TO LEARN?YES LEARNING PREFERENCES?YES :BOOKLETS, HANDOUTS LEARNING CAPABILITIES PRESENT?YES EMOTIONAL BARRIERS?NO SPECIAL DEVICES?NO ACID CONCENTRATOR NEEDED?NO PAIN CLINIC PFS, CLERGY, PUBLIC HEALTH REFERRALS PFS REFERRAL NEEDED?NO CLERGY REFERRAL NEEDED?NO PUBLIC HEALTH REFERRAL NEEDED?NO WAS THE PROVIDER NOTIFIED OF ANY PERTINENT INFO?YES N/A HAS THE PATIENT BEEN EDUCATED REGARDING HIS/HER PLAN OF CARE?YES HAS THE PATIENT BEEN EDUCATED REGARDING PAIN, THE RISK FOR PAIN, THE IMPORTANCE OF EFFECTIVE PAIN MANAGEMENT, AND THE PAIN ASSESSMENT PROCESS?YES LATEX QUESTIONNAIRE LATEX ALLERGY : HAVE YOU EVER DEVELOPED ANY TYPE OF REACTION AFTER HANDLING LATEX PRODUCTS SUCH RUBBER GLOVES, CONDOMS, DIAPHRAGMS, BALLOONS, SOCKS, OR UNDERWEAR?NO LATEX ALLERGY : HAVE YOU EVER DEVELOPED ANY TYPE OF REACTION DURING OR AFTER DENTAL APPOINTMENT, VAGINAL/RECTAL EXAMINATION, SURGICAL PROCEDURE, OR ANY OTHER EXPOSURE?NO DATE ASKED : 02/22/2019 LATEX RISK : HAVE YOU EVER HAD ANY DIFFICULTY BREATHING OR HIVES AFTER EATING OR HANDLING ANY FRUITS, OR VEGETABLES; SUCH KIWI, BANANAS, STONE FRUITS, OR CHESTNUTSNO LATEX RISK : DO YOU HAVE A PREVIOUS PERSONAL HISTORY OF MORE THAN NINE SURGERIES, SPINA BIFIDA, OR REPEATED CATHERIZATIONS? NO LATEX RISK : ARE YOU FREQUENTLY EXPOSED TO LATEX PRODUCTS IN YOUR OCCUPATION?NO CAFFEINE CAFFEINE USE?NO ADVANCE DIRECTIVE ADVANCE DIRECTIVE DISCUSSED WITH PATIENT:YES HCP- , CHUCHO [phone] SHINTO [id number] GNOSTICIST MARITAL STATUS: . ALCOHOL SCREENING DID YOU HAVE A DRINK CONTAINING ALCOHOL IN THE PAST YEAR?YES HOW OFTEN DID YOU HAVE SIX OR MORE DRINKS ON ONE OCCASION IN THE PAST YEAR?NEVER (0 POINTS) HOW MANY DRINKS DID YOU HAVE ON A TYPICAL DAY WHEN YOU WERE DRINKING IN THE PAST YEAR?1 OR 2 (0 POINTS) HOW OFTEN DID YOU HAVE A DRINK CONTAINING ALCOHOL IN THE PAST YEAR?TWO TO FOUR TIMES A MONTH (2 POINTS) POINTS2 INTERPRETATIONNEGATIVE OCCUPATION: [employer]. REVIEWED 02/19/18 133REVIEWED 04/21/18 1500 BV05/18/18 1220 REVIEWED WITH PT. AD10/19/18 REVIEWED WITH PT 1057 BV REVIEWED WITH PATIENT 11/27/18 1151 JSREVIEWED WITH PATIENT 09/15/19 0937 JS. HOSPITALIZATION/MAJOR DIAGNOSTIC PROCEDURE FOR SURGERIES RECTAL BLEEDING DUE TO DIVERTICULITIS 09/2017 REVIEW OF SYSTEMS REVIEWED BY: PROVIDER: MADAI WATERMAN-C . CONSTITUTIONAL: ANY CHANGE IN YOUR MEDICAL CONDITION? YES, OTITIS MEDIA AND UTI TX'D W ABX . CHILLS NO . FEVER NO . INFECTION: DO YOU HAVE NEW INFECTIONS? YES, OTITIS MEDIA AND UTI . DO YOU HAVE HISTORY OF MRSA? NO . MUSCULOSKELETAL: ANY NEW PATTERNS OF PAIN OR NUMBNESS? NO . GASTROENTEROLOGY: ANY NEW CHANGE IN BOWEL CONTROL? NO . GENITOURINARY: ANY NEW CHANGE IN BLADDER CONTROL? YES, HEMATURIA AND DYSURIA . IS THERE A CHANCE YOU COULD BE ? NO . HEMATOLOGY/LYMPH: DO YOU TAKE ANY BLOOD THINNERS? (FOR EXAMPLE- COUMADIN, PLAVIX, AGGRENOX, PLATEL, PRADAXA, OR XARELTO) NO . WHEN WAS YOUR LAST DOSE? DATE: TIME: . NEUROLOGY: HAVE YOU FALLEN IN THE PAST 12 MONTHS? NO . ANY NEW EXTREMITY NUMBNESS OR WEAKNESS? NO . CARDIOLOGY: DO YOU HAVE A PACEMAKER OR DEFIBRILLATOR? NO . RESPIRATORY: HAVE YOU BEEN SICK IN THE PAST WEEK? NO . FEVER NO . FLU LIKE SYMPTOMS? NO . COUGH NO . INTEGUMENTARY: DO YOU HAVE ANY RASHES OR OPEN SORES? NO . ALLERGIC/IMMUNO: ARE YOU ALLERGIC TO IV DYE? NO . ANY NEW ALLERGIES? NO . PSYCHIATRIC: DO YOU HAVE THOUGHTS OF HURTING YOURSELF OR SOMEONE ELSE? NO . ARE YOU ABUSED, NEGLECTED, OR IN AN UNSAFE ENVIRONMENT? NO . ENDOCRINOLOGY: ARE YOU DIABETIC? NO . OTHER: DO YOU NEED ANY PRESCRIPTIONS? NO . IF YES, PLEASE LIST: ____ . ANY NEW PROBLEMS WITH YOUR MEDICATIONS? NO . WHEN DID YOU LAST EAT? ____ . WHEN DID YOU LAST DRINK? ____ . WHAT DID YOU LAST DRINK? ____ . NAME OF PERSON DRIVING YOU HOME? ____ . DO YOU HAVE ANY OTHER QUESTIONS OR CONCERNS NO . VITAL SIGNS WT 178.8 LBS, HT 68", BMI 27.18 INDEX, BP 131/75 MM HG, HR 101 /MIN, RR 18 /MIN, TEMP 97.0 F, OXYGEN SAT % 96%, NA INITIALS AW 1112, REVIEWED BY: EM. EXAMINATION GENERAL EXAMINATION: GENERALNO ACUTE DISTRESS, WELL NOURISHED AND HYDRATED. PSYCHAPPROPRIATE MOOD AND AFFECT . LUNGS:CLEAR TO AUSCULTATION BILATERALLY, NO WHEEZES, RHONCHI, RALES. HEART:NO MURMURS, REGULAR RATE AND RHYTHM. ASSESSMENTS SPONDYLOSIS OF LUMBOSACRAL REGION WITHOUT MYELOPATHY OR RADICULOPATHY - M47.817 (PRIMARY) TREATMENT SPONDYLOSIS OF LUMBOSACRAL REGION WITHOUT MYELOPATHY OR RADICULOPATHY STOP HYDROCODONE-ACETAMINOPHEN TABLET, 5-300 MG, 1 TABLET NEEDED, ORALLY FOR PAIN, DAILY MDD1, NOTES: NOT TAKING START PERCOCET TABLET, 7.5-325 MG, 1 TABLET NEEDED, ORALLY, EVERY 6 HRS MDD 3, 30 DAYS, 90 CLINICAL NOTES: 84-YEAR-OLD MALE IN FOR CHRONIC PAIN FOLLOW-UP. GIVEN PRESENTING SYMPTOMS AND RESULTS OF PHYSICAL EXAMINATION RECOMMENDED TRIAL OF PERCOCET 7.5/325MG 3 TIMES A DAY NEEDED FOR PAIN WITH FOLLOW-UP IN ONE MONTH TO DETERMINE EFFICACY TREATMENT. PATIENT HAS EXPRESSED UNDERSTANDING OF AND WAS IN AGREEMENT WITH TREATMENT PLAN. GIVEN TIME TO ASK QUESTIONS AND EXPRESS CONCERNS., ISTOP REGISTRY REVIEWED AND DEMONSTRATES COMPLLIANCE. (REF # [id number] ) BRINGS IN MEDICATIONS WHICH IS APPROPRIATE FOR WHAT WAS DISPENSED. RECENT URINE TOXICOLOGY REVIEWED. NO UNAUTHORIZED MEDICATIONS. NO ILLICIT SUBSTANCES AND PRESCRIBED MEDICATIONS WERE PRESENT. PREVENTIVE MEDICINE PAIN CLINIC TEACHING: MEDICATIONS NEW MEDICATION PERCOCET INSTRUCTIONS PROVIDED TO PT AND DISCUSSED. VERBALLIZED UNDERSTANDING.. PROCEDURE CODES FA211 ESTABILISHED PATIENT [facility] CHARGE DISPOSITION & COMMUNICATION FOLLOW UP 4 WEEKS (REASON: LOW BACK PAIN) ELECTRONICALLY SIGNED BY COLUMBA CRUZ ON 11/29/2019 AT 08:17 AM EST DISCLAIMER : THIS IS A VISIT SUMMARY EXTRACTED FROM THE [employer] CHART. IT IS NOT A COPY OF THE [employer] PROGRESS NOTE. DARRIN
== END ==
LOC: M PAIN 10:15
PROVIDERS: ATTEND Family Medicine
DX: M47.817 Spondylosis without myelopathy or radiculopathy, lumbosacral region (principal)

== ENCOUNTER → 2020-06-07 | Outpatient (REF) | payer MEDICARE ==
[~2020-06-07] MED LIST changes: -ASPI81TA85 PO; +ASPI81TA86 PO; +MULT1TAB74 PO; -MULTTAB4 PO
== END ==
LOC: M LAB REF 09:37
PROVIDERS: ATTEND Dermatology
DX: C44.212 Basal cell carcinoma of skin of right ear and external auricular canal (principal)

== ENCOUNTER → 2020-09-23 | Outpatient (CLI) | payer MEDICARE ==
[~2020-09-23] MED LIST changes: -CLIN150C14 PO; +CLIN150C15 PO; +GABA-282 PO; -GABA-843 PO
== END ==
LOC: M LABSMTC 10:35
PROVIDERS: ATTEND Anesthesiology Pain Medicine
DX: Z01.818 Encounter for other preprocedural examination (principal); M96.1 Postlaminectomy syndrome, not elsewhere classified; M54.16 Radiculopathy, lumbar region; Z20.828 Contact with and (suspected) exposure to other viral communicable diseases

== ENCOUNTER → 2020-10-10 | Outpatient (CLI) | payer MEDICARE ==
[~2020-10-10] MED LIST changes: +CLIN150C14 PO; -CLIN150C15 PO; -GABA-282 PO; +GABA-843 PO
--- NOTE | 2020-10-10 18:04 | REP ---
INDICATION: CONTUSION THORAX. COMPARISON: Chest 10/13/2017. TECHNIQUE: Four views left ribs performed as well as a PA view of the chest. FINDINGS: There is no evidence of left rib fracture or bone lesion. There is mild linear bibasilar fibro atelectatic change. Heart mediastinum are unchanged. IMPRESSION: No radiographic evidence of left rib fracture. <Electronically signed by Mars Ortega > 10/10/20 1800
== END ==
LOC: M WUC 17:12
PROVIDERS: ATTEND Physician Assistant
DX: S20.20XA Contusion of thorax, unspecified, initial encounter (principal); X58.XXXA Exposure to other specified factors, initial encounter; Y92.9 Unspecified place or not applicable

== ENCOUNTER → 2020-12-26 | Outpatient (REF) | payer MEDICARE ==
[~2020-12-26] MED LIST changes: -CLIN150C14 PO; +CLIN150C15 PO; +GABA-282 PO; -GABA-843 PO
== END ==
LOC: M LAB REF 09:33
PROVIDERS: ATTEND Dermatology
DX: L57.0 Actinic keratosis (principal)

== ENCOUNTER → 2021-01-22 | Outpatient (REF) | payer MEDICARE | LOC: M WUC 15:44 | PROVIDERS: ATTEND Physician Assistant | DX: N39.0 Urinary tract infection, site not specified (principal) ==

== ENCOUNTER → 2021-03-06 | Outpatient (CLI) | payer MEDICARE ==
--- NOTE | 2021-03-07 08:23 | REP ---
INDICATION: CHRONIC LBP, SPINAL CORD STIMULATOR TRIAL. COMPARISON: None. TECHNIQUE: Sagittal T1, T2, STIR, axial T1 and T2 weighted MR images of the thoracic spine are obtained. FINDINGS: There is [id number] multilevel degenerative disc disease with loss of disc height and disc desiccation seen diffusely throughout the thoracic spine. Vertebral heights are preserved. No malalignments. On the sagittal T2 weighted images, no limiting canal stenosis. Thoracic cord appears normal in its course, caliber and signal characteristics. Cyst on the right appears to be associated with the right kidney, measures approximately 3 cm. On the review of axial images, no evidence of limiting canal or foraminal stenosis or disc herniation. IMPRESSION: 1. 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 2. No evidence of malalignment or fracture. No limiting canal or foraminal stenosis identified. No disc herniation. 3. Cystic lesion appears to be associated with the right kidney measures approximately 3 cm is incompletely imaged. Consider ultrasound for further evaluation. <Electronically signed by Meng Mac > 03/07/21 0819
== END ==
LOC: M RAD 16:01
PROVIDERS: ATTEND Anesthesiology Pain Medicine
DX: M54.5 Low back pain (principal)

== ENCOUNTER → 2021-12-31 | Outpatient (REF) | payer MEDICARE ==
[~2021-12-31] MED LIST changes: +ACET-907 PO; +AMLO1TAB25 PO; +CETI10CA13 PO; -CLIN150C15 PO; +CLIN150C17 PO; +ECOT81TA5 PO; +HYDR-3363 PO; +INSUDET SC; +INSUHUMDS SC; +MUCI600T31 PO; +MUCI60TA7 PO; +OMEG10002 PO; +OMEP40CA4 PO; -OMEP40CA97 PO; +PRED10TA2 PO; +VENTAER INH
== END ==
LOC: SKLAB4 12:49
PROVIDERS: ATTEND Internal Medicine
DX: N39.0 Urinary tract infection, site not specified (principal)

== ENCOUNTER → 2022-01-01 | Outpatient (REF) | payer MEDICARE ==
[2022-01-01 03:43] LABS: APPEARANCE, URINE CLEAR (CLEAR); BACTERIA, URINE AUTO 2+ (NEGATIVE); BILIRUBIN, URINE AUTO NEGATIVE (NEGATIVE); BLOOD, URINE BLOOD NEGATIVE (NEGATIVE); COLOR, URINE YELLOW (YELLOW); GLUCOSE, URINE (UA) AUTO 3+ mg/dL (NEGATIVE); KETONE, URINE AUTO NEGATIVE (NEGATIVE); LEUKOCYTE ESTERASE, URINE AUTO 3+ (NEGATIVE); NITRITE, URINE AUTO POSITIVE (NEGATIVE); PROTEIN, URINE AUTO NEGATIVE (NEGATIVE); RBC, URINE AUTO 3 /HPF (0-3); SPECIFIC GRAVITY URINE AUTO 1.012 (1.002-1.035); SQUAMOUS EPITHELIAL CELL UR AU 0 /HPF (0-6); UROBILINOGEN, URINE AUTO 0.2 mg/dL (0.0-2.0); WBC, URINE AUTO TNTC /HPF (0-3)
== END ==
LOC: SKLAB4 01:30 → EDSTATUS 06:04
PROVIDERS: ATTEND Internal Medicine
DX: R82.998 Other abnormal findings in urine (principal); Z87.440 Personal history of urinary (tract) infections

== ENCOUNTER → 2022-01-03 | Outpatient (REF) ==
[2022-01-03 11:29] LABS: HEMATOCRIT 41.9 % (42.0-52.0); HEMOGLOBIN 13.8 g/dl (13.5-17.5); MEAN CORPUSCULAR HEMOGLOBIN 32.2 pg (27.0-33.0); MEAN CORPUSCULAR HGB CONC 32.9 g/dl (32.0-36.5); MEAN CORPUSCULAR VOLUME 97.9 fl (80.0-96.0); PLATELET COUNT, AUTOMATED 345 10^3/uL (150-450); RED BLOOD COUNT 4.28 10^6/uL (4.30-6.10); WHITE BLOOD COUNT 15.3 10^3/uL (4.0-10.0)
[2022-01-03 11:43] LABS: BLOOD UREA NITROGEN 32 MG/DL (7-18); CALCIUM LEVEL 9.8 MG/DL (8.8-10.2); CARBON DIOXIDE LEVEL 23 MEQ/L (21-32); CHLORIDE LEVEL 103 MEQ/L (98-107); CREATININE FOR GFR 0.99 MG/DL (0.70-1.30); GLOMERULAR FILTRATION RATE > 60.0 (>35); GLUCOSE, FASTING 224 MG/DL (70-100); SODIUM LEVEL 137 MEQ/L (136-145)
== END ==
LOC: SKLAB4 07:00
PROVIDERS: ATTEND Internal Medicine
DX: I10 Essential (primary) hypertension (principal); R63.4 Abnormal weight loss

== ENCOUNTER → 2022-01-28 | Outpatient (REF) | payer MEDICARE | LOC: SKLAB4 11:07 | PROVIDERS: ATTEND Internal Medicine | DX: N39.0 Urinary tract infection, site not specified (principal) ==

== ENCOUNTER → 2022-01-31 | Outpatient (REF) | payer MEDICARE ==
[2022-01-31 12:37] LABS: CALCIUM LEVEL 9.4 MG/DL (8.8-10.2); CREATININE FOR GFR 1.4 MG/DL (0.70-1.30); GLOMERULAR FILTRATION RATE 51.2 (>35); POTASSIUM SERUM 4.3 MEQ/L (3.5-5.1)
== END ==
LOC: SKLAB4 07:00
PROVIDERS: ATTEND Internal Medicine
DX: N18.9 Chronic kidney disease, unspecified (principal)

== ENCOUNTER → 2022-02-05 | Outpatient (REF) | payer MEDICARE ==
[2022-02-05 09:48] LABS: CALCIUM LEVEL 10.1 MG/DL (8.8-10.2); CREATININE FOR GFR 1.38 MG/DL (0.70-1.30); POTASSIUM SERUM 4.6 MEQ/L (3.5-5.1)
[2022-02-05 09:49] LABS: HEMATOCRIT 43.2 % (42.0-52.0); HEMOGLOBIN 14.4 g/dl (13.5-17.5); MEAN CORPUSCULAR HEMOGLOBIN 31.6 pg (27.0-33.0); MEAN CORPUSCULAR HGB CONC 33.3 g/dl (32.0-36.5); MEAN CORPUSCULAR VOLUME 94.9 fl (80.0-96.0); PLATELET COUNT, AUTOMATED 377 10^3/uL (150-450); RED BLOOD COUNT 4.55 10^6/uL (4.30-6.10); WHITE BLOOD COUNT 11.5 10^3/uL (4.0-10.0)
== END ==
LOC: SKLAB4 07:00
PROVIDERS: ATTEND Internal Medicine
DX: N18.9 Chronic kidney disease, unspecified (principal)

== ENCOUNTER → 2022-02-15 | Outpatient (REF) | payer MEDICARE ==
[2022-02-15 08:44] LABS: CALCIUM LEVEL 9.6 MG/DL (8.8-10.2); CREATININE FOR GFR 1.43 MG/DL (0.70-1.30); GLOMERULAR FILTRATION RATE 49.9 (>35); POTASSIUM SERUM 4.4 MEQ/L (3.5-5.1)
[2022-02-15 09:14] LABS: HEMOGLOBIN A1c 6.6 %
== END ==
LOC: SKLAB4 07:00
PROVIDERS: ATTEND Internal Medicine
DX: N18.9 Chronic kidney disease, unspecified (principal); E11.9 Type 2 diabetes mellitus without complications

== ENCOUNTER → 2022-03-26 | Outpatient (REF) | payer MEDICARE ==
[2022-03-26 13:40] LABS: APPEARANCE, URINE CLEAR (CLEAR); BACTERIA, URINE AUTO NEGATIVE (NEGATIVE); BILIRUBIN, URINE AUTO NEGATIVE (NEGATIVE); BLOOD, URINE BLOOD NEGATIVE (NEGATIVE); COLOR, URINE YELLOW (YELLOW); GLUCOSE, URINE (UA) AUTO NEGATIVE (NEGATIVE); KETONE, URINE AUTO NEGATIVE (NEGATIVE); LEUKOCYTE ESTERASE, URINE AUTO 1+ (NEGATIVE); MUCUS, URINE SMALL (NEGATIVE); NITRITE, URINE AUTO NEGATIVE (NEGATIVE); PROTEIN, URINE AUTO NEGATIVE (NEGATIVE); RBC, URINE AUTO 1 /HPF (0-3); SPECIFIC GRAVITY URINE AUTO 1.017 (1.002-1.035); SQUAMOUS EPITHELIAL CELL UR AU 0 /HPF (0-6); UROBILINOGEN, URINE AUTO 0.2 mg/dL (0.0-2.0); WBC, URINE AUTO 11 /HPF (0-3)
== END ==
LOC: M SMT 12:58
PROVIDERS: ATTEND Physician Assistant
DX: N39.0 Urinary tract infection, site not specified (principal)

== ENCOUNTER → 2022-06-13 | Outpatient (REF) | payer MEDICARE ==
[2022-06-13 14:05] LABS: APPEARANCE, URINE HAZY (CLEAR); BACTERIA, URINE AUTO 1+ (NEGATIVE); BILIRUBIN, URINE AUTO NEGATIVE (NEGATIVE); BLOOD, URINE BLOOD NEGATIVE (NEGATIVE); COLOR, URINE YELLOW (YELLOW); GLUCOSE, URINE (UA) AUTO NEGATIVE (NEGATIVE); KETONE, URINE AUTO NEGATIVE (NEGATIVE); LEUKOCYTE ESTERASE, URINE AUTO 3+ (NEGATIVE); MUCUS, URINE SMALL (NEGATIVE); NITRITE, URINE AUTO NEGATIVE (NEGATIVE); PROTEIN, URINE AUTO NEGATIVE (NEGATIVE); RBC, URINE AUTO 2 /HPF (0-3); SPECIFIC GRAVITY URINE AUTO 1.019 (1.002-1.035); SQUAMOUS EPITHELIAL CELL UR AU 0 /HPF (0-6); UROBILINOGEN, URINE AUTO 0.2 mg/dL (0.0-2.0); WBC, URINE AUTO 148 /HPF (0-3)
== END ==
LOC: M SMT 13:03
PROVIDERS: ATTEND Physician Assistant
DX: R30.0 Dysuria (principal)

== ENCOUNTER → 2022-08-22 | Outpatient (REF) | payer MEDICARE ==
[2022-08-22 15:47] LABS: APPEARANCE, URINE MANUAL HAZY (CLEAR); COLOR, URINE MANUAL YELLOW (YELLOW)
[2022-08-22 15:50] LABS: BILIRUBIN, URINE MANUAL NEGATIVE (NEGATIVE); BLOOD URINE MANUAL TRACE (NEGATIVE); GLUCOSE, URINE (UA) MANUAL NEGATIVE (NEGATIVE); KETONE, URINE MANUAL NEGATIVE (NEGATIVE); LEUKOCYTE ESTERASE, URINE MAN POSITIVE (NEGATIVE); NITRITE, URINE MANUAL POSITIVE (NEGATIVE); PROTEIN, URINE MANUAL 1+ mg/dL (NEGATIVE); UROBILINOGEN, URINE MANUAL NORMAL (NORMAL)
[2022-08-22 16:08] LABS: BACTERIA, URINE LARGE AMOUNT; HYALINE CAST, URINE NONE SEEN /lpf (0-1); SQUAMOUS EPITHELIAL CELL URINE SMALL AMOUNT /hpf (SMALL AMT); WBC, URINE TNTC /hpf (0-3)
== END ==
LOC: M SMT 15:12
PROVIDERS: ATTEND Physician Assistant
DX: R30.0 Dysuria (principal)

== ENCOUNTER → 2022-09-02 | Outpatient (REF) | payer MEDICARE ==
[2022-09-02 10:06] LABS: APPEARANCE, URINE MANUAL CLEAR (CLEAR); COLOR, URINE MANUAL YELLOW (YELLOW)
[2022-09-02 10:07] LABS: BILIRUBIN, URINE MANUAL NEGATIVE (NEGATIVE); BLOOD URINE MANUAL NEGATIVE (NEGATIVE); GLUCOSE, URINE (UA) MANUAL NEGATIVE (NEGATIVE); KETONE, URINE MANUAL NEGATIVE (NEGATIVE); LEUKOCYTE ESTERASE, URINE MAN NEGATIVE (NEGATIVE); NITRITE, URINE MANUAL NEGATIVE (NEGATIVE); PROTEIN, URINE MANUAL NEGATIVE (NEGATIVE); UROBILINOGEN, URINE MANUAL NORMAL (NORMAL)
== END ==
LOC: M SMT 09:53
PROVIDERS: ATTEND Physician Assistant
DX: N39.0 Urinary tract infection, site not specified (principal)

== ENCOUNTER → 2022-12-04 | Outpatient (REF) | payer MEDICARE ==
[2022-12-04 19:53] LABS: APPEARANCE, URINE MANUAL CLEAR (CLEAR); COLOR, URINE MANUAL YELLOW (YELLOW)
[2022-12-04 19:55] LABS: BILIRUBIN, URINE MANUAL NEGATIVE (NEGATIVE); BLOOD URINE MANUAL NEGATIVE (NEGATIVE); GLUCOSE, URINE (UA) MANUAL NEGATIVE (NEGATIVE); KETONE, URINE MANUAL NEGATIVE (NEGATIVE); LEUKOCYTE ESTERASE, URINE MAN NEGATIVE (NEGATIVE); NITRITE, URINE MANUAL NEGATIVE (NEGATIVE); PROTEIN, URINE MANUAL NEGATIVE (NEGATIVE); UROBILINOGEN, URINE MANUAL NORMAL (NORMAL)
== END ==
LOC: M SMT 16:56
PROVIDERS: ATTEND Physician Assistant
DX: N39.0 Urinary tract infection, site not specified (principal)

== ENCOUNTER → 2022-12-26 | Outpatient (REF) | payer MEDICARE ==
[2022-12-26 18:43] LABS: APPEARANCE, URINE MANUAL HAZY (CLEAR); BILIRUBIN, URINE MANUAL NEGATIVE (NEGATIVE); BLOOD URINE MANUAL POSITIVE (NEGATIVE); COLOR, URINE MANUAL YELLOW (YELLOW); GLUCOSE, URINE (UA) MANUAL NEGATIVE (NEGATIVE); KETONE, URINE MANUAL NEGATIVE (NEGATIVE); LEUKOCYTE ESTERASE, URINE MAN POSITIVE (NEGATIVE); NITRITE, URINE MANUAL NEGATIVE (NEGATIVE); PROTEIN, URINE MANUAL TRACE mg/dL (NEGATIVE); UROBILINOGEN, URINE MANUAL NORMAL (NORMAL)
[2022-12-26 18:55] LABS: BACTERIA, URINE MOD AMOUNT; SQUAMOUS EPITHELIAL CELL URINE SMALL AMOUNT /hpf (SMALL AMT); WBC, URINE 30-40 /hpf (0-3)
== END ==
LOC: M SMT 16:55
PROVIDERS: ATTEND Physician Assistant
DX: R30.0 Dysuria (principal)

== ENCOUNTER → 2023-09-02 | Outpatient (CLI) | payer MEDICARE ==
[2023-09-02 16:14] LABS: BASO # 0.1 10^3/uL (0.0-0.2); BASO % 0.8 % (0.0-1.0); EOS # 0.3 10^3/uL (0.0-0.5); EOS % 2.9 % (0.0-3.0); HEMATOCRIT 40.4 % (42.0-52.0); HEMOGLOBIN 13.4 g/dl (13.5-17.5); LYMPH # 1.6 10^3/uL (1.5-5.0); LYMPH % 15.9 % (24.0-44.0); MEAN CORPUSCULAR HEMOGLOBIN 33.2 pg (27.0-33.0); MEAN CORPUSCULAR HGB CONC 33.2 g/dl (32.0-36.5); NEUTROPHILS % 69.9 % (36.0-66.0); PLATELET COUNT, AUTOMATED 316 10^3/uL (150-450); RED BLOOD COUNT 4.04 10^6/uL (4.30-6.10)
== END ==
LOC: M PLALAB 12:43
PROVIDERS: ATTEND Physician Assistant
DX: N39.0 Urinary tract infection, site not specified (principal)

== ENCOUNTER 2023-11-12 00:55 | Inpatient (IN) | payer MEDICARE ==
[2023-11-12] VITALS (9 sets, daily range): BP systolic 138–166; BP diastolic 65–87; TEMP 97.6–102.4; O2SAT 94–97
[~2023-11-12] VITALS: Ht 188 cm; Wt 78.1 kg
[2023-11-12 01:46] LABS: BASO % 0.3 % (0.0-1.0); HEMATOCRIT 42.6 % (42.0-52.0); HEMOGLOBIN 14.3 g/dl (13.5-17.5); LYMPH # 0.3 10^3/uL (1.5-5.0); LYMPH % 2.6 % (24.0-44.0); MEAN CORPUSCULAR HEMOGLOBIN 32.6 pg (27.0-33.0); MEAN CORPUSCULAR HGB CONC 33.6 g/dl (32.0-36.5); MEAN CORPUSCULAR VOLUME 97.3 fl (80.0-96.0); MONO # 1.1 10^3/uL (0.0-0.8); MONO % 9.2 % (2.0-8.0); NEUTROPHILS # 10.8 10^3/uL (1.5-8.5); NEUTROPHILS % 87.3 % (36.0-66.0); PLATELET COUNT, AUTOMATED 258 10^3/uL (150-450); RED BLOOD COUNT 4.38 10^6/uL (4.30-6.10); WHITE BLOOD COUNT 12.3 10^3/uL (4.0-10.0)
[2023-11-12] MEDS ORDERED: hydrALAZINE 20MG/ML 1ML VIAL IV ONE ×2 (02:00→13:35)
[2023-11-12] MEDS ORDERED: ACETAMINOPHEN *IV* 1,000 MG in IV 1 EA IV ONE (02:05)
[2023-11-12 02:09] LABS: INR 1.04; PROTHROMBIN TIME 13.3 SECONDS (12.5-14.5)
[2023-11-12 02:20] LABS: BLOOD UREA NITROGEN 29 MG/DL (9-23); CALCIUM LEVEL 9.4 MG/DL (8.3-10.6); CARBON DIOXIDE LEVEL 21 MMOL/L (20-31); CHLORIDE LEVEL 107 MMOL/L (98-107); CK-MB VALUE MASS < 1.0 NG/ML (<3.6); CPK CREATINE PHOSPHOKINASE 39 U/L (46-171); CREATININE FOR GFR 1.18 MG/DL (0.70-1.30); GLOMERULAR FILTRATION RATE > 60.0 (>35); GLUCOSE, FASTING 274 MG/DL (74-106); MB/CK RELATIVE INDEX 2.56 (< OR =4); POTASSIUM SERUM 4.3 MMOL/L (3.5-5.1); SODIUM LEVEL 138 MMOL/L (136-145)
[2023-11-12] MEDS ORDERED: ISOVUE-370 76% 100ML VIAL As Ordered ONE (02:32)
[2023-11-12] MEDS ORDERED: CLOPIDOGREL 300 MG TAB (PLAVIX) PO STA (06:41)
[2023-11-12] MEDS ORDERED: ALBUTEROL SULFATE 2.5MG/0.5ML INH NEB SOLN NEB PRN (08:55)
[2023-11-12] MEDS ORDERED: ASPIRIN 81MG CHEW TABLET PO SCH (09:00)
[2023-11-12] MEDS ORDERED: MED REC IN PROGRESS XX SCH (09:05)
[2023-11-12] MEDS ORDERED: hydrALAZINE 20MG/ML 1ML VIAL IV PRN (09:05)
[2023-11-12 09:37] LABS: D-DIMER QUANT 0.88 ug/mL (<0.5)
[2023-11-12 09:43] LABS: C REACTIVE PROTEIN QUANTITATIV 7.8 MG/DL (<1.0)
[2023-11-12 09:46] LABS: FERRITIN 55.1 NG/ML (10.5-307.3)
[2023-11-12 09:52] LABS: PROCALCITONIN 0.2 ng/ml
[2023-11-12] MEDS ORDERED: REMDESIVIR 200 MG in NS 250 ML IV ONE (11:00)
[2023-11-12] MEDS ORDERED: GLUCOSE 4GM CHEW TABLET PO PRN (12:35)
[2023-11-12] MEDS ORDERED: **hydrALAZINE HCL** 25 MG TAB PO PRN (12:35)
[2023-11-12] MEDS ORDERED: DEXTROSE 50% 50ML SYRINGE IV PRN (12:35)
[2023-11-12] MEDS ORDERED: GLUCAGON INJ 1MG VIAL SC PRN (12:35)
[2023-11-12] MEDS ORDERED: IPRATROPIUM 0.5MG/ALBUTEROL 2.5MG INH SOL UD 3ML (DUONEB) NEB SCH (14:00)
[2023-11-12] MEDS: ACETAMINOPHEN TAB 650MG DOSE (2X325MG) PO PRN (15:13)
[2023-11-12] MEDS ORDERED: VITMTA PO (15:50)
[2023-11-12] MEDS ORDERED: MUCI600T31 PO (15:58)
[2023-11-12] MEDS ORDERED: FAMO40TA3 PO (15:58)
[2023-11-12] MEDS ORDERED: CETI10TA4 PO (15:59)
[2023-11-12] MEDS ORDERED: HOME MED LIST COMPLETE! XX SCH (16:00)
[2023-11-12] MEDS: TAMSULOSIN 0.4 MG CAP PO SCH (18:37)
[2023-11-12] MEDS: INSULIN LISPRO (NovoLOG) PER UNIT SC SCH ×2 (18:38→20:07)
[2023-11-12] MEDS: guaiFENesin ER TABLET 600 MG TAB PO PRN (20:23)
[2023-11-12] MEDS: HEPARIN SOD (PORCINE) 5000UNITS/ML 1ML VIAL/SYRINGE SQ SCH (20:24)
[2023-11-13] VITALS (13 sets, daily range): BP systolic 121–162; BP diastolic 63–76; TEMP 96.4–98.6; O2SAT 94–98
[2023-11-13 07:11] LABS: ALBUMIN 3.1 G/DL (3.2-5.2); ALKALINE PHOSPHATASE 65 U/L (46-116); ALT/SGPT 27 U/L (7.0-40); AST/SGOT 61 U/L (<34); BILIRUBIN,DIRECT 0.2 MG/DL (<0.4); BILIRUBIN,TOTAL 0.5 MG/DL (0.3-1.2); BLOOD UREA NITROGEN 28 MG/DL (9-23); CALCIUM LEVEL 8.8 MG/DL (8.3-10.6); CARBON DIOXIDE LEVEL 23 MMOL/L (20-31); CHLORIDE LEVEL 111 MMOL/L (98-107); CREATININE FOR GFR 1.11 MG/DL (0.70-1.30); GLOMERULAR FILTRATION RATE > 60.0 (>35); GLUCOSE, FASTING 129 MG/DL (74-106); MAGNESIUM LEVEL 1.7 MG/DL (1.8-2.4); POTASSIUM SERUM 4.2 MMOL/L (3.5-5.1); SODIUM LEVEL 143 MMOL/L (136-145); TOTAL PROTEIN 5.8 G/DL (5.7-8.2)
[2023-11-13] MEDS ORDERED: MAGNESIUM OXIDE 400MG TAB (MAG-OX) PO ONE (08:00)
[2023-11-13] MEDS ORDERED: ASPIRIN 81MG ENTERIC TABLET PO SCH (09:00)
[2023-11-13] MEDS: INSULIN LISPRO (NovoLOG) PER UNIT SC SCH ×4 (09:05→21:00)
[2023-11-13] MEDS: ASPIRIN 81MG CHEW TABLET PO SCH (10:12)
[2023-11-13] MEDS: MULTIVITAMINS/MINERALS THERAP 1 TAB PO SCH (10:12)
[2023-11-13] MEDS: FAMOTIDINE 20 MG TAB PO SCH (10:12)
[2023-11-13] MEDS: HEPARIN SOD (PORCINE) 5000UNITS/ML 1ML VIAL/SYRINGE SQ SCH ×2 (10:13→21:08)
[2023-11-13] MEDS: REMDESIVIR 100 MG in NS 250 ML IV SCH (10:13)
[2023-11-13] MEDS: CLOPIDOGREL 75 MG TAB PO SCH (10:13)
[2023-11-13] MEDS: OMEGA-3 1000MG CAPSULE PO SCH (10:13)
[2023-11-13] MEDS: ALBUTEROL 90 MCG/ACT 8GM HFA INHALER INH PRN ×3 (10:33→21:24)
[2023-11-13] MEDS ORDERED: REMDESIVIR 100 MG in NS 250 ML IV SCH (11:00)
[2023-11-13] MEDS: TAMSULOSIN 0.4 MG CAP PO SCH (18:02)
[2023-11-13] MEDS: guaiFENesin ER TABLET 600 MG TAB PO PRN (21:08)
[2023-11-13] MEDS: ACETAMINOPHEN TAB 650MG DOSE (2X325MG) PO PRN (21:08)
[2023-11-14 01:25] VITALS: BP 146/80; TEMP 98.1; O2SAT 95
[2023-11-14] MEDS: ALBUTEROL 90 MCG/ACT 8GM HFA INHALER INH PRN ×2 (01:44→14:05)
[2023-11-14 05:48] VITALS: BP 154/86; TEMP 97.9; O2SAT 93
[2023-11-14 06:48] LABS: BLOOD UREA NITROGEN 32 MG/DL (9-23); CALCIUM LEVEL 8.3 MG/DL (8.3-10.6); CARBON DIOXIDE LEVEL 25 MMOL/L (20-31); CHLORIDE LEVEL 111 MMOL/L (98-107); CREATININE FOR GFR 1.21 MG/DL (0.70-1.30); GLOMERULAR FILTRATION RATE > 60.0 (>35); GLUCOSE, FASTING 145 MG/DL (74-106); MAGNESIUM LEVEL 1.9 MG/DL (1.8-2.4); POTASSIUM SERUM 4.8 MMOL/L (3.5-5.1); SODIUM LEVEL 144 MMOL/L (136-145)
[2023-11-14] MEDS: CLOPIDOGREL 75 MG TAB PO SCH (08:01)
[2023-11-14] MEDS: FAMOTIDINE 20 MG TAB PO SCH (08:01)
[2023-11-14] MEDS: MULTIVITAMINS/MINERALS THERAP 1 TAB PO SCH (08:01)
[2023-11-14] MEDS: OMEGA-3 1000MG CAPSULE PO SCH (08:01)
[2023-11-14] MEDS: ASPIRIN 81MG CHEW TABLET PO SCH (08:01)
[2023-11-14] MEDS: HEPARIN SOD (PORCINE) 5000UNITS/ML 1ML VIAL/SYRINGE SQ SCH ×2 (08:02→21:11)
[2023-11-14] MEDS: INSULIN LISPRO (NovoLOG) PER UNIT SC SCH ×4 (08:02→21:00)
[2023-11-14] MEDS: ATORVASTATIN 20 MG TAB PO SCH (11:15)
[2023-11-14] MEDS: REMDESIVIR 100 MG in NS 250 ML IV SCH (11:16)
[2023-11-14 14:00] VITALS: BP 144/75; TEMP 97.9; O2SAT 98
[2023-11-14] MEDS: TAMSULOSIN 0.4 MG CAP PO SCH (17:16)
[2023-11-14 21:01] VITALS: BP 144/75; TEMP 98.2; O2SAT 97
[2023-11-14] MEDS: ACETAMINOPHEN TAB 650MG DOSE (2X325MG) PO PRN (21:13)
[2023-11-15 06:35] VITALS: BP 147/80; TEMP 97.4; O2SAT 98
[2023-11-15 06:40] LABS: HEMATOCRIT 41.3 % (42.0-52.0); HEMOGLOBIN 13.6 g/dl (13.5-17.5); MEAN CORPUSCULAR HEMOGLOBIN 31.6 pg (27.0-33.0); MEAN CORPUSCULAR HGB CONC 32.9 g/dl (32.0-36.5); MEAN CORPUSCULAR VOLUME 95.8 fl (80.0-96.0); PLATELET COUNT, AUTOMATED 236 10^3/uL (150-450); RED BLOOD COUNT 4.31 10^6/uL (4.30-6.10); WHITE BLOOD COUNT 7.4 10^3/uL (4.0-10.0)
[2023-11-15 07:08] LABS: BLOOD UREA NITROGEN 26 MG/DL (9-23); CALCIUM LEVEL 8.4 MG/DL (8.3-10.6); CARBON DIOXIDE LEVEL 23 MMOL/L (20-31); CHLORIDE LEVEL 109 MMOL/L (98-107); CREATININE FOR GFR 0.97 MG/DL (0.70-1.30); GLOMERULAR FILTRATION RATE > 60.0 (>35); GLUCOSE, FASTING 127 MG/DL (74-106); MAGNESIUM LEVEL 1.8 MG/DL (1.8-2.4); POTASSIUM SERUM 3.9 MMOL/L (3.5-5.1); SODIUM LEVEL 141 MMOL/L (136-145)
[2023-11-15] MEDS: INSULIN LISPRO (NovoLOG) PER UNIT SC SCH ×2 (09:22→12:22)
[2023-11-15] MEDS: ASPIRIN 81MG CHEW TABLET PO SCH (09:22)
[2023-11-15] MEDS: HEPARIN SOD (PORCINE) 5000UNITS/ML 1ML VIAL/SYRINGE SQ SCH (09:22)
[2023-11-15] MEDS: ATORVASTATIN 20 MG TAB PO SCH (09:22)
[2023-11-15 09:23] VITALS: BP 152/91
[2023-11-15] MEDS: MULTIVITAMINS/MINERALS THERAP 1 TAB PO SCH (09:23)
[2023-11-15] MEDS: FAMOTIDINE 20 MG TAB PO SCH (09:23)
[2023-11-15] MEDS: CLOPIDOGREL 75 MG TAB PO SCH (09:23)
[2023-11-15] MEDS: OMEGA-3 1000MG CAPSULE PO SCH (09:24)
[2023-11-15] MEDS ORDERED: ATOR1TAB21 PO (10:51)
[2023-11-15] MEDS ORDERED: CLOP75TA2 PO (10:51)
[2023-11-15] MEDS ORDERED: AMLO1TAB25 PO (10:51)
[2023-11-15] MEDS: ALBUTEROL 90 MCG/ACT 8GM HFA INHALER INH PRN (12:13)
[2023-11-15 14:00] VITALS: BP 143/74; TEMP 97.7; O2SAT 65
== END 2023-11-15 14:44 | disposition home or self-care (01) | DRG 178 ==
LOC: M ED 00:55 → M ED INP 08:13 → ENRESERVDT 13:40 → ENRESERVTM 13:40 → ENRESERV 13:40 → M PCU 14:59 → M MSPAV 11-14 01:18
PROVIDERS: ADMIT Internal Medicine; ATTEND Family Medicine
PROC: XW033E5 Introduction of Remdesivir Anti-infective into Peripheral Vein, Percutaneous Approach, New Technology Group 5 (ICD-10-PCS; principal; 2023-11-12)
DX: U07.1 COVID-19 (principal); G45.9 Transient cerebral ischemic attack, unspecified; J81.1 Chronic pulmonary edema; I10 Essential (primary) hypertension; J45.909 Unspecified asthma, uncomplicated; E11.9 Type 2 diabetes mellitus without complications; K21.9 Gastro-esophageal reflux disease without esophagitis; H91.93 Unspecified hearing loss, bilateral; R53.1 Weakness; R29.810 Facial weakness; Z66 Do not resuscitate; Z85.46 Personal history of malignant neoplasm of prostate; Z86.73 Personal history of transient ischemic attack (TIA), and cerebral infarction without residual deficits; Z79.82 Long term (current) use of aspirin; Z79.4 Long term (current) use of insulin; Z79.899 Other long term (current) drug therapy; Z88.1 Allergy status to other antibiotic agents

== ENCOUNTER → 2023-11-24 | Outpatient (REF) | payer MEDICARE ==
[~2023-11-24] MED LIST changes: +ATOR1TAB21 PO; +CETI10TA4 PO; +CLOP75TA2 PO; +FAMO40TA3 PO; +VITMTA PO
[2023-11-24 18:55] LABS: APPEARANCE, URINE HAZY (CLEAR); BACTERIA, URINE AUTO 1+ (NEGATIVE); BILIRUBIN, URINE AUTO NEGATIVE (NEGATIVE); BLOOD, URINE BLOOD NEGATIVE (NEGATIVE); COLOR, URINE YELLOW (YELLOW); GLUCOSE, URINE (UA) AUTO 3+ mg/dL (NEGATIVE); KETONE, URINE AUTO NEGATIVE (NEGATIVE); LEUKOCYTE ESTERASE, URINE AUTO 3+ (NEGATIVE); MUCUS, URINE SMALL (NEGATIVE); NITRITE, URINE AUTO POSITIVE (NEGATIVE); PROTEIN, URINE AUTO 1+ mg/dL (NEGATIVE); RBC, URINE AUTO 2 /HPF (0-3); SPECIFIC GRAVITY URINE AUTO 1.021 (1.002-1.035); SQUAMOUS EPITHELIAL CELL UR AU 0 /HPF (0-6); UROBILINOGEN, URINE AUTO 0.2 mg/dL (0.0-2.0); WBC, URINE AUTO 93 /HPF (0-3)
== END ==
LOC: M SMT 17:13
PROVIDERS: ATTEND Physician Assistant
DX: R30.0 Dysuria (principal)

== ENCOUNTER → 2024-01-22 | Outpatient (REF) | payer MEDICARE ==
[2024-01-22 10:55] LABS: APPEARANCE, URINE CLEAR (CLEAR); BACTERIA, URINE AUTO NEGATIVE (NEGATIVE); BILIRUBIN, URINE AUTO NEGATIVE (NEGATIVE); BLOOD, URINE BLOOD NEGATIVE (NEGATIVE); COLOR, URINE YELLOW (YELLOW); GLUCOSE, URINE (UA) AUTO NEGATIVE (NEGATIVE); KETONE, URINE AUTO NEGATIVE (NEGATIVE); LEUKOCYTE ESTERASE, URINE AUTO NEGATIVE (NEGATIVE); MUCUS, URINE SMALL (NEGATIVE); NITRITE, URINE AUTO NEGATIVE (NEGATIVE); PROTEIN, URINE AUTO NEGATIVE (NEGATIVE); RBC, URINE AUTO 1 /HPF (0-3); SPECIFIC GRAVITY URINE AUTO 1.023 (1.002-1.035); SQUAMOUS EPITHELIAL CELL UR AU 0 /HPF (0-6); UROBILINOGEN, URINE AUTO 0.2 mg/dL (0.0-2.0); WBC, URINE AUTO 1 /HPF (0-3)
== END ==
LOC: M SMT 10:12
PROVIDERS: ATTEND Physician Assistant
DX: R10.9 Unspecified abdominal pain (principal)

== ENCOUNTER → 2024-03-05 | Outpatient (REF) | payer MEDICARE ==
[2024-03-05 12:49] LABS: APPEARANCE, URINE HAZY (CLEAR); BACTERIA, URINE AUTO NEGATIVE (NEGATIVE); BILIRUBIN, URINE AUTO NEGATIVE (NEGATIVE); BLOOD, URINE BLOOD NEGATIVE (NEGATIVE); COLOR, URINE YELLOW (YELLOW); GLUCOSE, URINE (UA) AUTO 1+ mg/dL (NEGATIVE); KETONE, URINE AUTO NEGATIVE (NEGATIVE); LEUKOCYTE ESTERASE, URINE AUTO TRACE (NEGATIVE); MUCUS, URINE SMALL (NEGATIVE); NITRITE, URINE AUTO NEGATIVE (NEGATIVE); PROTEIN, URINE AUTO NEGATIVE (NEGATIVE); RBC, URINE AUTO 0 /HPF (0-3); SPECIFIC GRAVITY URINE AUTO 1.019 (1.002-1.035); SQUAMOUS EPITHELIAL CELL UR AU 0 /HPF (0-6); UROBILINOGEN, URINE AUTO 0.2 mg/dL (0.0-2.0); WBC, URINE AUTO 6 /HPF (0-3)
== END ==
LOC: M SMT 12:12
PROVIDERS: ATTEND Physician Assistant
DX: N39.0 Urinary tract infection, site not specified (principal)

== ENCOUNTER → 2024-09-20 | Outpatient (CLI) | payer MEDICARE ==
[~2024-09-20] MED LIST changes: +GABA-1172 PO; -GABA-282 PO
[2024-09-20 17:38] LABS: RSV AMPLIFICATION NEGATIVE (NEGATIVE)
== END ==
LOC: M WUC 12:21
PROVIDERS: ATTEND Nurse Practitioner Adult Health
DX: R05.1 Acute cough (principal)

== ENCOUNTER → 2024-10-07 | Outpatient (CLI) | payer MEDICARE | LOC: M RAD 15:23 | PROVIDERS: ATTEND Physician Assistant | DX: M25.511 Pain in right shoulder (principal) ==

== ENCOUNTER 2025-01-02 03:07 | Observation (INO) | payer MEDICARE ==
[~2025-01-02] VITALS: Ht 172.7 cm; Wt 75.9 kg
[2025-01-02 03:59] LABS: BASO # 0.1 10^3/uL (0.0-0.2); BASO % 0.6 % (0.0-1.0); EOS % 0.1 % (0.0-3.0); HEMOGLOBIN 14.5 g/dl (13.5-17.5); LYMPH # 0.7 10^3/uL (1.5-5.0); LYMPH % 7.5 % (24.0-44.0); MEAN CORPUSCULAR HEMOGLOBIN 32.5 pg (27.0-33.0); MEAN CORPUSCULAR HGB CONC 33.7 g/dl (32.0-36.5); MEAN CORPUSCULAR VOLUME 96.4 fl (80.0-96.0); MONO # 1.3 10^3/uL (0.0-0.8); MONO % 13.8 % (2.0-8.0); NEUTROPHILS # 7.3 10^3/uL (1.5-8.5); NEUTROPHILS % 77.7 % (36.0-66.0); PLATELET COUNT, AUTOMATED 210 10^3/uL (150-450); RED BLOOD COUNT 4.46 10^6/uL (4.30-6.10); WHITE BLOOD COUNT 9.4 10^3/uL (4.0-10.0)
[2025-01-02 04:30] LABS: BLOOD UREA NITROGEN 26 MG/DL (9-23); CARBON DIOXIDE LEVEL 22 MMOL/L (20-31); CHLORIDE LEVEL 106 MMOL/L (98-107); CREATININE FOR GFR 1.15 MG/DL (0.70-1.30); GLOMERULAR FILTRATION RATE > 60.0 (>35); GLUCOSE, FASTING 119 MG/DL (74-106); POTASSIUM SERUM 4.2 MMOL/L (3.5-5.1); SODIUM LEVEL 139 MMOL/L (136-145)
[2025-01-02] MEDS: IPRATROPIUM 0.5MG/ALBUTEROL 2.5MG INH SOL UD 3ML (DUONEB) NEB ONE ×2 (04:35→04:49)
[2025-01-02] MEDS: hydrALAZINE 20MG/ML 1ML VIAL IV STA (04:48)
[2025-01-02] MEDS: OSELTAMIVIR PHOSPHATE 75 MG CAP PO ONE (05:20)
[2025-01-02 05:30] LABS: CK-MB VALUE MASS < 1.0 NG/ML (<3.6)
[2025-01-02 05:37] LABS: CPK CREATINE PHOSPHOKINASE 81 U/L (46-171); MB/CK RELATIVE INDEX 1.23 (< OR =4)
[2025-01-02] MEDS: dexAMETHasone 20MG/5ML VIAL IV ONE (06:45)
[2025-01-02] MEDS: NS (Normal Saline) 0.9% 1,000 ML IV ONE (06:45)
[2025-01-02] MEDS: IPRATROPIUM 0.5MG/ALBUTEROL 2.5MG INH SOL UD 3ML (DUONEB) NEB SCH (10:15)
[2025-01-02] MEDS ORDERED: ACET-683 PO (12:38)
[2025-01-02] MEDS ORDERED: MULT-40 PO (12:38)
[2025-01-02] MEDS ORDERED: HOME MED LIST COMPLETE! XX SCH (12:40)
[2025-01-02] MEDS: ENOXAPARIN 40MG/0.4ML SYRINGE (J1650 PER 10MG) SC SCH (17:22)
[2025-01-02] MEDS: CETIRIZINE (ZyrTEC) 10 MG TAB PO SCH (17:24)
[2025-01-02] MEDS: FAMOTIDINE 20 MG TAB PO SCH (17:24)
[2025-01-02] MEDS: TAMSULOSIN 0.4 MG CAP PO SCH (22:36)
[2025-01-02] MEDS: ACETAMINOPHEN 500 MG TAB PO PRN (22:36)
[2025-01-02] MEDS: OSELTAMIVIR PHOSPHATE 30MG CAPSULE PO SCH (22:36)
[2025-01-02] MEDS: **hydrALAZINE HCL** 25 MG TAB PO PRN (22:36)
[2025-01-02] MEDS: guaiFENesin ER TABLET 600 MG TAB PO PRN (22:37)
[2025-01-03 06:32] LABS: BASO % 0.2 % (0.0-1.0); HEMATOCRIT 41.9 % (42.0-52.0); HEMOGLOBIN 13.7 g/dl (13.5-17.5); LYMPH # 1.4 10^3/uL (1.5-5.0); MEAN CORPUSCULAR HGB CONC 32.7 g/dl (32.0-36.5); MEAN CORPUSCULAR VOLUME 97.9 fl (80.0-96.0); MONO # 1.2 10^3/uL (0.0-0.8); MONO % 17.3 % (2.0-8.0); NEUTROPHILS # 4.1 10^3/uL (1.5-8.5); PLATELET COUNT, AUTOMATED 203 10^3/uL (150-450); RED BLOOD COUNT 4.28 10^6/uL (4.30-6.10); WHITE BLOOD COUNT 6.6 10^3/uL (4.0-10.0)
[2025-01-03 06:57] LABS: BLOOD UREA NITROGEN 30 MG/DL (9-23); CALCIUM LEVEL 8.4 MG/DL (8.3-10.6); CARBON DIOXIDE LEVEL 23 MMOL/L (20-31); CHLORIDE LEVEL 108 MMOL/L (98-107); CREATININE FOR GFR 1.19 MG/DL (0.70-1.30); GLOMERULAR FILTRATION RATE > 60.0 (>35); GLUCOSE, FASTING 125 MG/DL (74-106); POTASSIUM SERUM 3.8 MMOL/L (3.5-5.1); SODIUM LEVEL 141 MMOL/L (136-145)
[2025-01-03] MEDS: ASPIRIN 81MG ENTERIC TABLET PO SCH (09:37)
[2025-01-03 15:50] VITALS: BP 144/71; TEMP 97; O2SAT 98
[2025-01-04 06:17] VITALS: BP 134/63; TEMP 97.5; O2SAT 96
[2025-01-04 08:50] VITALS: BP 134/80
[2025-01-04] MEDS ORDERED: OSEL75CA PO (14:49)
== END 2025-01-04 16:55 | disposition home health service (06) ==
LOC: M ED 03:07 → M ED INP 03:08 → M MS4PR 01-03 15:40 → UNDODISOB 01-04 16:55
PROVIDERS: ADMIT Internal Medicine; ATTEND Student in an Organized Health Care Education/Training Program
DX: J10.1 Influenza due to other identified influenza virus with other respiratory manifestations (principal); J45.909 Unspecified asthma, uncomplicated; J44.9 Chronic obstructive pulmonary disease, unspecified; N40.0 Benign prostatic hyperplasia without lower urinary tract symptoms; I10 Essential (primary) hypertension; K21.9 Gastro-esophageal reflux disease without esophagitis; Z86.73 Personal history of transient ischemic attack (TIA), and cerebral infarction without residual deficits; Z66 Do not resuscitate; Z79.51 Long term (current) use of inhaled steroids; Z79.82 Long term (current) use of aspirin; Z79.899 Other long term (current) drug therapy; Z88.1 Allergy status to other antibiotic agents; Z87.891 Personal history of nicotine dependence; Z85.46 Personal history of malignant neoplasm of prostate; Z90.79 Acquired absence of other genital organ(s)
CPT/HCPCS: 36415; 71045; 80048; 82550; 82553; 83880; 84484; 85025; 87486; 87581; 87633; 87798; 93005; 94640; 96361; 96372; 96374; 96375; 97116; 97161; 97530; 99285; G0378; J0360; J1100; J1650

== ENCOUNTER → 2025-01-31 | Outpatient (REF) | payer MEDICARE ==
[~2025-01-31] MED LIST changes: +ACET-683 PO; +MULT-40 PO; +OSEL75CA PO
[2025-01-31 17:07] LABS: APPEARANCE, URINE HAZY (CLEAR); BACTERIA, URINE AUTO 1+ (NEGATIVE); BILIRUBIN, URINE AUTO NEGATIVE (NEGATIVE); BLOOD, URINE BLOOD NEGATIVE (NEGATIVE); COLOR, URINE YELLOW (YELLOW); GLUCOSE, URINE (UA) AUTO 1+ mg/dL (NEGATIVE); KETONE, URINE AUTO NEGATIVE (NEGATIVE); LEUKOCYTE ESTERASE, URINE AUTO 3+ (NEGATIVE); MUCUS, URINE SMALL (NEGATIVE); NITRITE, URINE AUTO NEGATIVE (NEGATIVE); PROTEIN, URINE AUTO 1+ mg/dL (NEGATIVE); RBC, URINE AUTO 2 /HPF (0-3); SQUAMOUS EPITHELIAL CELL UR AU 0 /HPF (0-6); UROBILINOGEN, URINE AUTO 0.2 mg/dL (0.0-2.0); WBC, URINE AUTO 71 /HPF (0-3)
== END ==
LOC: M SMT 16:45
PROVIDERS: ATTEND Physician Assistant
DX: R30.0 Dysuria (principal)